=== PATIENT | female | born 1945 | race Caucasian/White ===

== ENCOUNTER 2019-12-30 12:00 | Outpatient (CLI) | payer MEDICARE, OTHER, SELFPAY ==
--- NOTE | ~2019-12-30 | XR_ITS ---
XR lumbar spine 2-3V 12/30/2019 12:29 Indication: Postlaminectomy syndrome. Postop 3 weeks. Procedure: 2 views lumbar spine Comparison: 10/14/2019 Findings: There is levoscoliosis of the lumbar spine. There is disc narrowing and endplate degenerati ve change at L3-4, L4-5 and L5-S1. No acute fracture or traumatic malalignment. There is lower lumbar facet hypertrophy. There are cholecystectomy clips. Partially visualized right hip arthroplasty. The re is stable retrolisthesis at L4-5. Impression: 1: Stable severe lumbar spondylosis with levoscoliosis. Reviewed, dictated and finalized at location A. FILLER Impression: 1: Stable severe lumbar spondylosis with levoscoliosis.
== END 2019-12-30 12:01 | disposition home or self-care (01) ==
PROVIDERS: PCP Family Medicine Adolescent Medicine; Visit Provider Neurological Surgery
DX: M96.1 Postlaminectomy syndrome, not elsewhere classified (principal); M47.816 Spondylosis without myelopathy or radiculopathy, lumbar region
CPT/HCPCS: 72100

== ENCOUNTER 2020-01-23 06:41 | Outpatient (CLI) | payer MEDICARE, OTHER, SELFPAY ==
--- NOTE | ~2020-01-23 | MR_ITS ---
EXAMINATION: MR lumbar spine wo con EXAM DATE: 01/23/2020 07:33 INDICATION: Lumbar radiculopathy. TECHNIQUE: Multi-sequential, multiplanar MR images of the lumbar spine were obtained without contrast . Sagittal T1, T2, T2 fat saturation images. Axial T2 weighted images. Comparison is made to prior examination from 04/25/2019. FINDINGS: Again there is reversal of the normal lumbar lordosis. There is right hip replacement. Lowe r lumbar laminotomies, laminectomies. The conus medullaris terminates at the T12-L1 level and has nor mal signal intensity and morphology. Moderate to severe disc disease L3-4 and L4-5, mild to moderate disc disease at the other lumbar levels. There are no suspicious marrow signal abnormalities. Paraspi nal soft tissue is unremarkable. Mild lumbar levoscoliosis. Level by level evaluation: T12-L1: Disc does not extend beyond the endplate margin. Facet arthropathy: Mild. Neural foraminal stenosis: No stenosis. Central canal stenosis: No stenosis. L1-L2: There is a mild to moderate diffuse disc bulge. Facet arthropathy: Mild. Neural foraminal stenosis: No stenosis. Central canal stenosis: Mild. L2-L3: There is a moderate diffuse disc bulge. Facet arthropathy: Mild. Neural foraminal stenosis: Mild bilateral. Central canal stenosis: Mild. L3-L4: There is a moderate diffuse disc bulge. Facet arthropathy: Mild to moderate. Neural foraminal stenosis: Moderate right, mild to moderate left. Central canal stenosis: Mild. Right hemilaminectomy L4-L5: There is a moderate to large diffuse disc bulge. Facet arthropathy: Mild to moderate. Neural foraminal stenosis: Moderate bilateral. Central canal stenosis: Mild to moderate. Possible laminotomies L5-S1: There is a mild to moderate diffuse disc bulge. Facet arthropathy: Moderate. Neural foraminal stenosis: Moderate to severe bilateral, left greater than right. Central canal stenosis: Mild to moderate. Left hemilaminectomy Difficult appreciate significant interval change compared to prior study. IMPRESSION: 1. L5-S1 left neural foramina most narrowed on exam. 2. Lumbar spondylosis not significantly changed. 3. Levoscoliosis. Reviewed, dictated and finalized at location A.
== END 2020-01-23 06:42 | disposition home or self-care (01) ==
PROVIDERS: PCP Family Medicine Adolescent Medicine; Visit Provider Nurse Practitioner Family
DX: M47.26 Other spondylosis with radiculopathy, lumbar region (principal)
CPT/HCPCS: 72148

== ENCOUNTER 2021-01-09 15:29 | Outpatient (CLI) | payer MEDICARE, OTHER, SELFPAY | END 2021-01-09 15:30 | disposition home or self-care (01) | LOC: ANHCOVIDVC 15:29 | PROVIDERS: PCP Family Medicine Adolescent Medicine | DX: Z23 Encounter for immunization (principal) | CPT/HCPCS: 0001A; 91300 ==

== ENCOUNTER 2021-01-18 11:03 | Emergency (ER) | payer MEDICARE, OTHER, SELFPAY ==
--- NOTE | ~2021-01-18 | XR_ITS ---
EXAMINATION: XR ankle LT min 3V, XR foot LT min 3V EXAM DATE: 01/18/2021 11:42 INDICATION: Swelling and redness to lt ankle and foot. TECHNIQUE: Left foot dorsoplantar, lateral and oblique projections obtained and reviewed. Left ankle frontal, lateral and oblique projections obtained and reviewed. Comparison is made to prior examinat ion from 06/26/2008. FINDINGS: The left ankle mortise appears intact. There is moderate 1st metatarsophalangeal, talona vicular and 1st tarsometatarsal primary osteoarthritis. There are no bony erosions identified. There are no acute fractures or dislocations identified. There is no subcutaneous gas. The soft tissue is unremarkable. There are no radiopaque foreign bodies. IMPRESSION: 1. Left foot, ankle exam without acute osseous findings. 2. Polyarticular osteoarthritis. Reviewed, dictated and finalized at location B. OR OF MEDICINE IMPRESSION: 1. Left foot, ankle exam without acute osseous findings. 2. Polyarticular osteoarthritis.
--- NOTE | 2021-01-18 11:21 | ED.LOWEXIN ---
HPI - Extremity Injury (Lower) General Chief Complaint: Extremity Injury, Lower Stated Complaint: Left Ankle Pain Time Seen by Provider: 01/18/21 11:30 Source: patient Mode of arrival: ambulatory Limitations: no limitations History of Present Illness HPI Narrative: Daya Nova is a 75 yo female with a PMH of HTN, bladder incontinence, high cholesterol, who comes to express care with complaints of pain and swelling of L foot that started on Thursday. Left foot is mildly swollen is tender when walking. No signs of trauma, no twisting of ankle, no open abrasions. Rates pain as 3 out of 10 at rest and 7 out of 10 with walking, using cane because of pain with walking Related Data Home Medications Medication Instructions Recorded Confirmed aspirin 81 mg tablet,delayed 81 mg PO DAILY 10/12/19 release metoprolol succinate 25 mg 25 mg PO DAILY 10/12/19 tablet,extended release 24 hr rosuvastatin 10 mg tablet 5 mg PO DAILY tablet 10/12/19 tizanidine 2 mg capsule 2 mg PO BID PRN cap 10/12/19 vit C 250 mg-vit E 90 mg-zinc 40 1 tablet PO BID 10/12/19 mg-copper 1 [id number] capsule Allergies Allergy/AdvReac Type Severity Reaction Status Date / Time pentazocine Allergy Unknown Verified 01/24/11 08:55 No Known Allergies Allergy Unverified 03/26/19 08:56 Review of Systems Review of Systems: Narrative: CONSTITUTIONAL: Denies fever, chills, sweats. EYES: Denies visual changes, redness, discharge. ENT: Denies rhinorrhea, congestion, sore throat, otalgia. CARDIOVASCULAR: Denies chest pain, palpitations, edema. RESPIRATORY: Denies dyspnea, wheezing, cough GASTROINTESTINAL: Denies abdominal pain, nausea, vomiting, diarrhea. GENITOURINARY: Denies dysuria, hematuria, abnormal discharge SKIN: Denies rash or itching. NEUROLOGIC: Denies numbness, or focal weakness. PSYCHIATRIC: Denies anxiety or depression. Left foot pain, redness, swelling PMFSH Past Medical History Medical History Bladder incontinence High cholesterol HTN (hypertension) Family History Family History Mother Family history of malignant neoplasm of breast in first degree relative, Onset Age: 70 Other Family history of cardiovascular disease Family history of hearing loss Family history of malignant neoplasm of breast Family history of mental disorder Social History Social History Smoking status: Never smoker Alcohol intake: never Comments At time of signature, I agree with nursing past medical, surgical, social and family history. There is no relevant family history pertinent to the presenting complaint. Exam Narrative: Exam Narrative: GENERAL: This is a well-nourished, well-developed patient, in mild distress. HEAD: normocephalic, atraumatic. EYES: Sclera clear/white. Vision is grossly intact. EARS: External ears normal. Hearing grossly intact. NOSE: External nose normal without nasal discharge, nares without redness, no rhinorrhea. THROAT: Mucous membranes moist, NECK: Neck supple, CARDIOVASCULAR: Regular rate and rhythm without murmurs, gallops, or rubs. RESPIRATORY: Clear to auscultation. Breath sounds equal bilaterally. No wheezes, rales, or rhonchi. GASTROINTESTINAL: Abdomen soft, non-tender, SKIN: warm, intact -skin is red on foot with good capillary refill. Swelling more pronounced across top of her foot then and toes. Able to flex ankle with very little pain but wiggling toes is painful on medial foot side with foot rotation. Pain on standing; no tenderness on sore side with palpation in the forefoot, toes, or mid foot NEURO: awake, alert, and oriented to person, place and time. There were no obvious focal neurologic abnormalities. Steady gait EXTREMITIES: Normal range of motion. BACK: Nontender without deformity Course Course Emergency Course:
[2021-01-18 11:23] VITALS: BP 150/76; PULSE 81; RESP 18; TEMP 36.9; O2SAT 98
== END 2021-01-18 12:15 | disposition home or self-care (01) ==
PROVIDERS: Emergency Provider Nurse Practitioner; PCP Family Medicine Adolescent Medicine
DX: M19.072 Primary osteoarthritis, left ankle and foot (principal); E78.00 Pure hypercholesterolemia, unspecified; I10 Essential (primary) hypertension
CPT/HCPCS: 73610; 73630; 99213; G0463

== ENCOUNTER 2021-01-26 11:01 | Emergency (ER) | payer MEDICARE, OTHER, SELFPAY ==
--- NOTE | ~2021-01-26 | XR_ITS ---
EXAMINATION: XR wrist LT min 3V DATE: 01/26/2021 11:41 INDICATION: Pain, warmth and erythema at the left wrist TECHNIQUE: Posteroanterior, ulnar deviation, oblique, and lateral views of the left wrist were obtain ed. COMPARISON: none FINDINGS: Diffuse osteopenia. Bone alignment is normal. Likely old healed fracture at the second metacarpal hu physis. No acute fracture. Chondrocalcinosis at the triangular fibrocartilage complex. Polyarticular osteoarthritis, severe at the first carpometacarpal joint, moderate severity at the second and third metacarpophalangeal joints and mild at the wrist and first interphalangeal joints. There is remodelin g of the articular surfaces at the triscaphe joint suggesting severe osteoarthritis however the joint space is widened which suggests the presence of a joint effusion. Mild soft tissue swelling involvin g the subcutaneous tissues along the radial aspect of the left wrist extending to the base of the shara mb. IMPRESSION: 1. Chondrocalcinosis and moderate to severe polyarticular osteoarthritis. No acute osseous abnormalit y. 2. Widening of the triscaphe joint space despite appearance of remodeling of the articular surfaces w hich suggests a likely joint effusion. Reviewed, dictated and finalized at location A. IMPRESSION: 1. Chondrocalcinosis and moderate to severe polyarticular osteoarthritis. No ac ankit osseous abnormality. 2. Widening of the triscaphe joint space despite appearance of remodeling of th e articular surfaces which suggests a likely joint effusion.
--- NOTE | 2021-01-26 11:14 | ED.UPPEXIN ---
HPI - Extremity Injury (Upper) General Chief Complaint: Extremity Injury, Upper Stated Complaint: Left wrist and hand pain Time Seen by Provider: 01/26/21 11:14 Source: patient and RN notes reviewed Mode of arrival: ambulatory Limitations: no limitations History of Present Illness HPI narrative: 75-year-old female presents to the [facility] with left hand and wrist pain. Pain is at the base of the thumb with increased warmth and swelling. NO open areas or sores noted. Decreased ROM of the wrist. Patient denies any injury to the area. States she woke up today and the pain became more severe along with the redness and swelling. HX of arthitis. Has Been wearing a brace to help with pain and has been taking tramadol. Related Data Home Medications Medication Instructions Recorded Confirmed aspirin 81 mg tablet,delayed 81 mg PO DAILY 10/12/19 01/26/21 release metoprolol succinate 25 mg 25 mg PO DAILY 10/12/19 01/26/21 tablet,extended release 24 hr rosuvastatin 10 mg tablet 5 mg PO DAILY tablet 10/12/19 01/26/21 tizanidine 2 mg capsule 2 mg PO BID PRN cap 10/12/19 01/26/21 vit C 250 mg-vit E 90 mg-zinc 40 1 tablet PO BID 10/12/19 01/26/21 mg-copper 1 [id number] capsule Allergies Allergy/AdvReac Type Severity Reaction Status Date / Time pentazocine Allergy Unknown Unknown Verified 01/26/21 11:24 No Known Allergies Allergy Unverified 03/26/19 08:56 Review of Systems Review of Systems: Narrative: CONSTITUTIONAL: Denies fever, chills, or sweats. CARDIOVASCULAR: Denies chest pain, palpitations, or edema. RESPIRATORY: Denies cough or dyspnea. SKIN: Denies rash or itching. Redness to the base of the thumb left hand MUSCULOSKELETAL: Denies back pain or myalgia. Pain to the left wrist and left thumb base NEUROLOGIC: Denies headache, numbness, or weakness. PSYCHIATRIC: Denies anxiety or depression. All other systems reviewed are negative, except as documented in HPI. ON LICENSE OF [facility] Past Medical History Medical History Bladder incontinence High cholesterol HTN (hypertension) Family History Family History Mother Family history of malignant neoplasm of breast in first degree relative, Onset Age: 70 Other Family history of cardiovascular disease Family history of hearing loss Family history of malignant neoplasm of breast Family history of mental disorder Social History Social History Smoking status: Never smoker Alcohol intake: never Comments At the time of my signature, I reviewed and agree with the nursing past medical, surgical, social, and family history. There is no relevant family history pertinent to the patient complaint. Exam Narrative: Exam Narrative: GENERAL: This is a well-nourished, well-developed patient, in no apparent distress. HEAD: normocephalic, atraumatic. EYES: PERRL. Sclera clear/white. Vision is grossly intact. EARS: External ears normal CARDIOVASCULAR: Regular rate and rhythm without murmurs, gallops, or rubs. RESPIRATORY: Clear to auscultation. Breath sounds equal bilaterally. No wheezes, rales, or rhonchi. SKIN: warm, intact with no suspicious lesions or rash, good texture and turgor. Increased redness and warmth to the base along with swelling NEURO: awake, alert, and oriented to person, place and time. There were no obvious focal neurologic abnormalities. EXTREMITIES: Left thumb and radial aspect left wrist joint tenderness with effusion. BACK: Nontender without deformity Course Course Emergency Course: Discussed x-ray results and treatment plan with patient. Discussed the importance of following up the signs and symptoms to go directly to the emergency room which she verbalized understanding Discharge instructions reviewed with patient, as well as provided in writing per nursing staff. The instructions also include spec
[2021-01-26 11:15] VITALS: BP 121/72; PULSE 90; RESP 16; TEMP 37; O2SAT 98
== END 2021-01-26 12:16 | disposition home or self-care (01) ==
PROVIDERS: Emergency Provider Nurse Practitioner; PCP Family Medicine Adolescent Medicine
DX: M11.232 Other chondrocalcinosis, left wrist (principal); M15.9 Polyosteoarthritis, unspecified; E78.00 Pure hypercholesterolemia, unspecified; I10 Essential (primary) hypertension
CPT/HCPCS: 73110; 99213; G0463

== ENCOUNTER 2021-01-30 15:30 | Outpatient (CLI) | payer MEDICARE, OTHER, SELFPAY | END 2021-01-30 15:31 | disposition home or self-care (01) | LOC: ANHCOVIDVC 15:31 | PROVIDERS: PCP Family Medicine Adolescent Medicine | DX: Z23 Encounter for immunization (principal) | CPT/HCPCS: 0002A; 91300 ==

== ENCOUNTER → 2021-02-07 09:59 | Outpatient (CLI) | payer MEDICARE, OTHER, SELFPAY ==
--- NOTE | ~2021-02-07 | MR_ITS ---
EXAMINATION: MR brain/brain stem wo con EXAM DATE: 02/07/2021 10:37 INDICATION: Worsening generalized headaches for months. TECHNIQUE: Magnetic resonance imaging (MRI) of the brain/brain stem obtained without contrast. Saundraitt al T1, axial diffusion, gradient echo (T2*), T1, T2, FLAIR sequences obtained. Correlation is made t o head CT 03/25/2018. FINDINGS: There are no areas of restricted diffusion to suggest acute infarction. There is no acute hemorrhage seen on the T2*, a hemosiderin sensitive sequence. No intraparenchymal brain mass lesion. There is mild to moderate periventricular and subcortical T2/FLAIR signal hyperintensity, nonspecif ic but probably related to small vessel ischemic disease (microangiopathy). There are no extra-axia l collections. Flow voids are seen in the cerebral arteries on the T2-weighted sequences consistent with their expected patency. Patient has had bilateral ocular lens surgery. Soft tissue is unremark able. IMPRESSION: 1. No acute intracranial findings. 2. Vomo-io-ghjaqiau white matter hyperintensity probably microangiopathy. Reviewed, dictated and finalized at location A. IMPRESSION: 1. No acute intracranial findings. 2. [id number] white matter hyperintensity probably microangiopathy.
== END ==
PROVIDERS: PCP Family Medicine Adolescent Medicine; Visit Provider Family Medicine Adolescent Medicine
DX: R51.9 Headache, unspecified (principal)
CPT/HCPCS: 70551

== ENCOUNTER → 2021-04-05 06:58 | Outpatient (CLI) | payer MEDICARE, OTHER, SELFPAY ==
--- NOTE | ~2021-04-05 | XR_ITS ---
EXAMINATION: XR chest 2V DATE: 04/05/2021 07:25 INDICATION: Dyspnea on exertion TECHNIQUE: PA and lateral views of the chest are obtained. COMPARISON: 08/01/2016 FINDINGS: The lungs are free of acute opacities. There is no pleural effusion or pneumothorax. The ca rdiomediastinal silhouette is normal. There is mild thoracic spondylosis. IMPRESSION: 1. No acute cardiopulmonary abnormality. Reviewed, dictated and finalized at location B.
== END ==
PROVIDERS: Visit Provider Family Medicine Adolescent Medicine
DX: R06.00 Dyspnea, unspecified (principal)
CPT/HCPCS: 71046

== ENCOUNTER → 2021-05-17 14:47 | Outpatient (CLI) | payer MEDICARE, OTHER, SELFPAY ==
--- NOTE | ~2021-05-17 | MR_ITS ---
EXAMINATION: MR lumbar spine wo con DATE: 05/17/2021 15:32 INDICATION: Low back pain. Lumbar radiculopathy. TECHNIQUE: Magnetic resonance imaging (MRI) of the lumbar spine was performed without intravenous con trast. Sequences included sagittal T2-weighted FSE, sagittal T2-weighted FS FSE, sagittal T1-weighted FSE, and axial T2-weighted FSE. COMPARISON: Lumbar spine MRI 01/23/2020 FINDINGS: There is 17 degrees levoscoliosis of lumbar spine. There is kyphosis of the lumbar spine. T here is 5 mm retrolisthesis of L4 on L5. Vertebral body heights are normal. There is mildly decreased disc height at L1-L2 and L2-L3 and severely decreased disc height at L3-L4, L4-L5, and L5-S1. The di stal spinal cord signal intensity is normal. The conus medullaris is at L1. The following disc levels are specifically discussed: L1-L2: The disc is bulging with superimposed central extrusion. There is moderate right and severe le ft facet joint osteoarthritis. There is mild left neural foraminal stenosis. There is mild central ca nal stenosis. L2-L3: The disc is bulging and has an annular fissure. There is mild bilateral facet joint osteoarthr itis. There is mild bilateral neural foraminal stenosis. There is mild central canal stenosis. L3-L4: The disc is bulging. There is severe bilateral facet joint osteoarthritis. There is moderate r ight and mild left neural foraminal stenosis. There is mild central canal stenosis. L4-L5: The disc is bulging and has an annular fissure. There is mild bilateral facet joint osteoarthr itis. There is moderate bilateral neural foraminal stenosis. There is mild central canal stenosis. L5-S1: The disc is bulging and has an annular fissure. There is severe bilateral facet joint osteoart hritis. There is moderate bilateral neural foraminal stenosis. There is mild central canal stenosis. IMPRESSION: 1. Severe lumbar spondylosis, stable from 01/23/2020. 2. Lumbar kyphosis and levoscoliosis. Reviewed, dictated and finalized at location A.
--- NOTE | ~2021-05-17 | XR_ITS ---
EXAMINATION: XR hip LT min 2V EXAM DATE: 05/17/2021 15:49 INDICATION: Pain in left hip. Left lateral and anterior hip/groin pain. TECHNIQUE: Left hip frontal, 'frog leg' projections for interpretation. There is no prior study for comparison. FINDINGS: Smooth left hip femoral head contour, no radiographic evidence of avascular necrosis. Ther e is moderate left hip primary osteoarthritis. There are no acute fractures or dislocations identifie d. There is no subcutaneous gas. The soft tissue is unremarkable. There are no radiopaque foreign bodies. IMPRESSION: Moderate left hip osteoarthritis. Reviewed, dictated and finalized at location B.
== END ==
PROVIDERS: Visit Provider Nurse Practitioner Family
DX: M47.817 Spondylosis without myelopathy or radiculopathy, lumbosacral region (principal); M41.9 Scoliosis, unspecified; M16.12 Unilateral primary osteoarthritis, left hip
CPT/HCPCS: 72148; 73502

== ENCOUNTER 2021-09-03 10:39 | Outpatient (CLI) | payer MEDICARE, OTHER, SELFPAY ==
--- NOTE | ~2021-09-03 | XR_ITS ---
EXAMINATION: XR knee LT 2V DATE: 09/03/2021 11:46 INDICATION: Left knee pain. TECHNIQUE: 2 views of left knee were obtained. COMPARISON: None. FINDINGS: Bone alignment is normal. No fracture. There is mild tricompartmental osteoarthritis. There is chondrocalcinosis of the menisci. There are dystrophic calcifications of the joint capsule. No kn ee joint effusion. IMPRESSION: 1. Mild left knee osteoarthritis. Reviewed, dictated and finalized at location A.
[2021-09-03 11:55] LABS: Creatine Kinase 59 U/L (30-135); Magnesium 1.8 mg/dL (1.6-2.3); Uric Acid 4.1 mg/dL (2.5-7.5)
[2021-09-03 11:58] LABS: Hemoglobin A1C 5.3 % (<5.7)
[2021-09-03 12:12] LABS: Free T4 Free Thyroxine 1.37 ng/mL (0.78-2.19); Vitamin D 25 Hydroxy 66.4 ng/mL
[2021-09-03 13:06] LABS: Folic Acid > 20.0 ng/mL (2.76->20); Vitamin B12 > 1000.0 pg/mL (239-931)
[2021-09-07 09:53] LABS: Vitamin B1 27 nmol/L (8-30)
== END 2021-09-03 10:40 | disposition home or self-care (01) ==
PROVIDERS: PCP Family Medicine Adolescent Medicine; Visit Provider Internal Medicine Rheumatology
DX: Z13.1 Encounter for screening for diabetes mellitus (principal); R73.09 Other abnormal glucose; E55.9 Vitamin D deficiency, unspecified; E53.8 Deficiency of other specified B group vitamins; Z51.81 Encounter for therapeutic drug level monitoring; M17.12 Unilateral primary osteoarthritis, left knee; R53.83 Other fatigue
CPT/HCPCS: 36415; 73560; 82306; 82550; 82570; 82607; 82746; 83036; 83520; 83735; 84155; 84156; 84165; 84166; 84207; 84425; 84439; 84443; 84550; 86334; 86335

== ENCOUNTER → 2021-10-22 09:23 | Outpatient (CLI) | payer MEDICARE, OTHER, SELFPAY ==
--- NOTE | ~2021-10-22 | MR_ITS ---
EXAMINATION: MR lumbar spine wo con DATE: 10/22/2021 10:14 INDICATION: Persistent left-sided sciatica. TECHNIQUE: Magnetic resonance imaging (MRI) of the lumbar spine was performed without intravenous con trast. Sequences included sagittal T2-weighted FSE, sagittal T2-weighted FS FSE, sagittal T1-weighted FSE, and axial T2-weighted FSE. COMPARISON: Lumbar spine MRI 05/17/2021 FINDINGS: There is 14 degrees levoscoliosis of lumbar spine. There is kyphosis of lumbar spine. There is 4 mm retrolisthesis of L4 on L5. There is mild chronic anterior wedging of L1 vertebral body. The re is mildly decreased disc height at L1-L2 and L2-L3 and severely decreased disc height from L3-L4 t hrough L5-S1 with endplate remodeling. The distal spinal cord signal intensity is normal. The conus m edullaris is at T12-L1. The following disc levels are specifically discussed: L1-L2: There is a central extrusion. There is moderate right and severe left facet joint osteoarthrit is. There is no neural foraminal stenosis. There is mild central canal stenosis. L2-L3: The disc is bulging and has an annular fissure. There is mild bilateral facet joint osteoarthr itis. There is mild bilateral neural foraminal stenosis. There is mild central canal stenosis. L3-L4: The disc is bulging and has an annular fissure. There is severe bilateral facet joint osteoart hritis. There is moderate right and mild left neural foraminal stenosis. There is mild central canal stenosis. L4-L5: The disc is bulging and has an annular fissure. There is mild left facet joint osteoarthritis. There is moderate bilateral neural foraminal stenosis. There is mild central canal stenosis. There i s moderate stenosis of left lateral recess. L5-S1: The disc is bulging and has an annular fissure. There is severe bilateral facet joint osteoart hritis. There is moderate bilateral neural foraminal stenosis. There is mild central canal stenosis. IMPRESSION: 1. Severe lumbar spondylosis, stable from 05/17/2021. 2. Lumbar levoscoliosis. Reviewed, dictated and finalized at location A. AINER FINISHING INSPECTOR
== END ==
PROVIDERS: PCP Family Medicine Adolescent Medicine; Visit Provider Family Medicine Adolescent Medicine
DX: M47.817 Spondylosis without myelopathy or radiculopathy, lumbosacral region (principal); M48.07 Spinal stenosis, lumbosacral region; M41.9 Scoliosis, unspecified
CPT/HCPCS: 72148

== ENCOUNTER → 2022-01-07 10:34 | Outpatient (CLI) | payer MEDICARE, OTHER, SELFPAY ==
--- NOTE | ~2022-01-07 | XR_ITS ---
XR scoliosis survey DATE: 01/07/2022 11:30 INDICATION: Low back pain. Scoliosis. TECHNIQUE: Standing AP and lateral views COMPARISON: None FINDINGS: There is diffuse osteopenia. There is reversal of cervical curvature. Minimal anterolisthesis at C2-3 and C3-4. Severe degenerative disc disease and mild retrolisthesis at C4-5. Moderately severe degenerative disc disease at C5-6 and C6-7. 7 degrees levoscoliosis of the upper thoracic spine 16 degrees dextroscoliosis measured from T4 to L1. 22 degrees levoscoliosis measured from L2 to L4. There is severe degenerative disc disease at L3-4, L4-5 and particularly, moderately severe degenerat jaycee disease at L5-S1. There is mild retrolisthesis at L4-5. IMPRESSION: Osteopenia Thoracic and lumbar scoliosis Degenerative changes of the cervical and lumbar spine Reviewed, dictated and finalized at Location A. Reviewed, dictated and finalized at location A. LANE CABIN ATTENDANT
--- NOTE | ~2022-01-07 | XR_ITS ---
XR lumbar spine 2-3V DATE: 01/07/2022 11:30 INDICATION: Low back pain TECHNIQUE: Flexion and extension upright lateral views COMPARISON: December 30, 2019 lumbar spine FINDINGS: There is prominent diffuse osteopenia. There is moderate degenerative disc disease at L1-2 and L5-S1 There is severe degenerative disc disease at L2-3, L3-4, L4-5. There is associated mild retrolisthesi s at L4-5, stable since December 30, 2019. No fracture or bone destruction. No instability on flexion or extension. Surgical clips, right upper quadrant, likely due to cholecystectomy. IMPRESSION: Prominent diffuse osteopenia Multilevel degenerative disc disease, most severe at L2-3, L3-4, L4-5, associated mild chronic retrol isthesis at L4-5 Reviewed, dictated and finalized at location A. UP OPERATOR IMPRESSION: Prominent diffuse osteopenia Multilevel degenerative disc disease, most severe at L2-3, L3-4, L4-5, associat ed mild chronic retrolisthesis at L4-5
== END ==
PROVIDERS: PCP Family Medicine Adolescent Medicine
DX: M47.813 Spondylosis without myelopathy or radiculopathy, cervicothoracic region (principal); M47.817 Spondylosis without myelopathy or radiculopathy, lumbosacral region; M41.9 Scoliosis, unspecified
CPT/HCPCS: 72082; 72100

== ENCOUNTER 2022-11-19 10:23 | Outpatient (CLI) | payer MEDICARE, OTHER, SELFPAY ==
--- NOTE | ~2022-11-19 | MR_ITS ---
EXAMINATION: MR brain/brain stem wo con DATE: 11/19/2022 11:04 INDICATION: Headache. TECHNIQUE: Magnetic resonance imaging (MRI) of the brain and brainstem was performed without intraven ous contrast. COMPARISON: Brain MRI 02/07/2021 FINDINGS: There are scattered areas of nonspecific increased T2-weighted signal intensity in the cere bral white matter. There is no intracranial hemorrhage, acute infarction, or abnormal intracranial ma ss lesion. The ventricles are normal in size. There are likely changes of ocular lens replacement john geries. The paranasal sinuses are clear. The mastoid air cells are normal. IMPRESSION: 1. Stable moderate nonspecific cerebral white matter disease, which likely represents chronic small v essel ischemic disease. Reviewed, dictated and finalized at location A. RIDE OPERATOR IMPRESSION: 1. Stable moderate nonspecific cerebral white matter disease, which likely repr esents chronic small vessel ischemic disease.
== END 2022-11-19 10:24 | disposition home or self-care (01) ==
LOC: ANHIMG 10:29
PROVIDERS: PCP Family Medicine Adolescent Medicine; Visit Provider Internal Medicine Rheumatology
DX: R51.9 Headache, unspecified (principal)
CPT/HCPCS: 70551

== ENCOUNTER 2022-11-25 13:23 | Outpatient (CLI) | payer MEDICARE, OTHER, SELFPAY ==
--- NOTE | ~2022-11-25 | CT_ITS ---
EXAMINATION: CT lumbar spine wo con DATE: 11/25/2022 13:45 INDICATION: Intervertebral disc disorder. TECHNIQUE: Computed tomography (CT) of the lumbar spine was performed without intravenous contrast. A utomated exposure control and iterative reconstruction technique were employed. The dose-length produ ct was 649.38 mGy-cm. COMPARISON: None FINDINGS: There is 16 degrees levoscoliosis of lumbar spine. There is mild kyphosis of lumbar spine. There is 3 mm retrolisthesis of L4 on L5. There is mild chronic anterior wedging of L1 vertebral body . There is mildly decreased disc height at L1-L2 and L2-L3 and severely decreased disc height from L3 -L4 through L5-S1 with endplate remodeling. L1-L2: The disc is bulging. There is severe bilateral facet joint osteoarthritis. There is mild bilat eral neural foraminal stenosis. There is mild central canal stenosis. L2-L3: The disc is bulging. There is severe bilateral facet joint osteoarthritis. There is mild bilat eral neural foraminal stenosis. There is mild central canal stenosis. L3-L4: The disc is bulging. There is severe bilateral facet joint osteoarthritis. There is moderate r ight and mild left neural foraminal stenosis. There is mild central canal stenosis. L4-L5: The disc is bulging. There is moderate bilateral facet joint osteoarthritis. There is moderate bilateral neural foraminal stenosis. There is mild central canal stenosis. L5-S1: The disc is bulging. There is severe bilateral facet joint osteoarthritis. There is mild right and moderate left neural foraminal stenosis. There is mild central canal stenosis. IMPRESSION: 1. Severe lumbar spondylosis. 2. Lumbar levoscoliosis. Reviewed, dictated and finalized at location A. R VEHICLE OR CARAVAN SALESPERSON
== END 2022-11-25 13:24 | disposition home or self-care (01) ==
PROVIDERS: PCP Family Medicine Adolescent Medicine
DX: M51.17 Intervertebral disc disorders with radiculopathy, lumbosacral region (principal); M48.061 Spinal stenosis, lumbar region without neurogenic claudication; M54.50 Low back pain, unspecified; Z98.890 Other specified postprocedural states; M47.816 Spondylosis without myelopathy or radiculopathy, lumbar region; M41.9 Scoliosis, unspecified
CPT/HCPCS: 72131

== ENCOUNTER 2022-12-10 13:59 | Outpatient (CLI) | payer MEDICARE, OTHER, SELFPAY ==
[2022-12-10 15:51] LABS: Vitamin D 25 Hydroxy 46.2 ng/mL
== END 2022-12-10 14:00 | disposition home or self-care (01) ==
PROVIDERS: PCP Family Medicine Adolescent Medicine
DX: M48.061 Spinal stenosis, lumbar region without neurogenic claudication (principal); M85.88 Other specified disorders of bone density and structure, other site; Z98.890 Other specified postprocedural states
CPT/HCPCS: 36415; 82306

== ENCOUNTER → 2022-12-22 14:45 | Outpatient (CLI) | payer MEDICARE, OTHER, SELFPAY ==
--- NOTE | ~2022-12-22 | DEXA_ITS ---
Bone Density Report Name: CROW REED Age: 77 Sex: Female Ethnicity: White Date of : 1945 Indication: postmenopausal; screening for osteoporosis; height loss; hysterectomy; Referring Provider: COURTNEY JARAMILLO Study: Bone densitometry was performed. Exam Date: December 22, 2022 Accession number: [id number] Bone Density: Region BMD T-score Z-score Classification AP Spine (L1-L4) 1.080 0.3 2.9 Normal Femoral Neck (Left) 0.832 -0.1 2.1 Normal Total Hip (Left) 0.813 -1.1 1.0 Osteopenia World Health Organization criteria for BMD impression classify patients as: Normal (T-score at or above -1.0), Osteopenia (T-score between -1.0 and -2.5), or Osteoporosis (T-score at or below -2.5). 10-year Fracture Risk(1): Major Osteoporotic Fracture 9.1% Hip Fracture 1.2% Reported Risk Factors: [place] (), Neck BMD=0.832, BMI=27.2 (1) FRAX(R) Version 3.08. Fracture probability calculated for an untreated patient. Fracture probability may be lower if the patient has received treatment. Clinical Information Provided by Patient: Has used the following medications: Vitamin D, Calcium Has the following medical conditions: Hysterectomy Patient maximum height was 65.5 Menopause Age: 47 Drinks caffeinated beverages Onset of menses at age 11 Number of children 4 Impression: The patient has low bone mass, based on the Left Total Hip T-score. The patient has an estimated ten-year risk of hip fracture of 1.2% and an estimated ten-year risk of major fracture of 9.1%, based on the WHO FRAX algorithm. Discussion: BONE DENSITY IS LOW AT ONE OR MORE SKELETAL SITES. This patient's lowest T-score is low at one or more skeletal sites. It meets the World Health Organization's (WHO) criteria for ?low bone mass? (T-score between -1.0 and -2.5). The patient's 10-year risk of fracture as calculated by FRAX is less than the threshold where pharmacological therapy is recommended by the National Osteoporosis Foundation (NOF). However, all treatment decisions require clinical judgment and consideration of individual patient factors, including patient preferences, comorbidities, previous drug use, risk factors not captured in the FRAX model (e.g., frailty, falls, vitamin D deficiency, increased bone turnover, interval significant decline in bone density) and possible under or overestimation of fracture risk by FRAX. The patient should follow a healthful lifestyle (good nutrition with adequate calcium and vitamin D, and appropriate weight-bearing exercise). Follow-Up: Consider repeating this study in 2 to 3 years to reassess this patient's status, or sooner if there is some new clinical indication. Reported by: SHINE on 12/22/2022 3:03:00 PM. Reviewed, dictated and finalized at location A. BORA
== END ==
PROVIDERS: PCP Family Medicine Adolescent Medicine
DX: M48.061 Spinal stenosis, lumbar region without neurogenic claudication (principal); M85.88 Other specified disorders of bone density and structure, other site; Z98.890 Other specified postprocedural states
CPT/HCPCS: 77080

== ENCOUNTER 2023-04-23 10:40 | Outpatient (CLI) | payer MEDICARE, OTHER, SELFPAY ==
--- NOTE | ~2023-04-23 | XR_ITS ---
EXAMINATION: XR chest 2V 04/23/2023 11:01 INDICATION: Cough and dyspnea PROCEDURE: 2 view chest COMPARISON: 04/05/2021 FINDINGS: The lungs are clear. The cardiomediastinal silhouette is within normal limits. There are no pleural effusions. There is no pneumothorax suspected. IMPRESSION: 1: NO ACUTE CARDIOPULMONARY DISEASE. Reviewed, dictated and finalized at location L.
== END 2023-04-23 10:41 | disposition home or self-care (01) ==
LOC: ANHIMG 10:47
PROVIDERS: PCP Family Medicine Adolescent Medicine; Visit Provider Family Medicine Adolescent Medicine
DX: R06.09 Other forms of dyspnea (principal); R05.9 Cough, unspecified; R53.83 Other fatigue
CPT/HCPCS: 71046

== ENCOUNTER 2023-06-05 14:35 | Outpatient (CLI) | payer MEDICARE, OTHER, SELFPAY ==
--- NOTE | 2023-06-05 14:39 | ECHO_ITS ---
Patient Info Name: Daya Nova Age: 77 years : 1945 Gender: Female Ht: 65 in Wt: 158 lbs BSA: 1.83 m2 HR: 97 bpm BP: 119 / 80 mmHg Heart Rhythm: Sinus Rhythm Technical Quality: Fair Exam Date: 06/05/2023 2:50 PM Exam Location: [facility] Patient Status: Outpatient Admit Date: 06/05/2023 Staff Ordering Physician: Alejandro Yap MD Lard Refiner: Beatriz Sheehan RDCS Attending Provider: Alejandro Yap MD Referring Physician: Marely YAP; Exam Type: CA echo doppler color flow Study Info Indications R06.09 - Other forms of dyspnea R01.1 - Cardiac murmur, unspecified Complete two-dimensional, color flow and Doppler transthoracic echocardiogram is performed. Summary 1. Complete two-dimensional, color flow and Doppler transthoracic echocardiogram is performed. 2. Left ventricular chamber dimension is normal. 3. Left ventricular systolic function is hyperdynamic, estimated at >70%. 4. The left ventricular diastolic function is grade I diastolic dysfunction. 5. E/e' 8 is minimally elevated. 6. There is mild aortic valve sclerosis. 7. There is trace aortic valve regurgitation. 8. No pulmonary hypertension, estimated pulmonary arterial systolic pressure is 25 mmHg. Left Ventricle E/e' 8 is minimally elevated. Left ventricular chamber dimension is normal. Left ventricular systolic function is hyperdynamic, estimated at >70%. The left ventricular diastolic function is grade I diastolic dysfunction. Right Ventricle Right ventricular systolic function is normal and with normal TAPSE 2.2 cm. Right ventricular chamber dimension is normal. Left Atria Left atrial chamber dimension is normal. Right Atria Right atrial chamber dimension is normal. Aortic Valve The aortic valve is trileaflet. There is mild aortic valve sclerosis. There is no aortic valve stenosis. There is trace aortic valve regurgitation. Pulmonic Valve There is no pulmonic regurgitation. Mitral Valve There is no mitral valve stenosis. There is no mitral valve regurgitation. Tricuspid Valve There is no tricuspid valve regurgitation. No pulmonary hypertension, estimated pulmonary arterial systolic pressure is 25 mmHg. Pericardium/Pleural There is no pericardial effusion. Inferior Vena Cava Normal inferior vena cava with >50% collapse upon inspiration consistent with normal right atrial pressure, 5 mmHg. Aorta The aortic root size at the sinus of Valsalva is normal. Left Ventricular Outflow Tract Name Value Normal LVOT 2D LVOT Diameter 2.0 cm LVOT Doppler LVOT Peak Gradient 12 mmHg LVOT Mean Gradient 7 mmHg LVOT VTI 32 cm LVOT VTI/AV VTI Ratio 0.8 LVOT Stroke Volume 105 ml LVOT CO 10.4 l/min LVOT CI 5.7 l/min/m2 Pulmonic Valve Name Value Normal RVOT Doppler
== END 2023-06-05 14:36 | disposition home or self-care (01) ==
LOC: ANHCARD 14:37
PROVIDERS: PCP Family Medicine Adolescent Medicine; Visit Provider Family Medicine Adolescent Medicine
DX: R06.00 Dyspnea, unspecified (principal); R01.1 Cardiac murmur, unspecified; I35.8 Other nonrheumatic aortic valve disorders
CPT/HCPCS: 93306

== ENCOUNTER 2023-08-18 11:58 | Outpatient (CLI) | payer MEDICARE, OTHER, SELFPAY ==
--- NOTE | 2023-08-18 12:48 | ECG_ITS ---
Measurements Intervals [place] Rate: 68 P: 62 NM: 199 QRS: -36 QRSD: 89 T: 45 QT: 397 QTc: 425 Interpretive Statements SINUS RHYTHM POSSIBLE LEFT ATRIAL ENLARGEMENT [-0.1mV P WAVE IN V1/V2] MARKED LEFT AXIS DEVIATION [QRS AXIS < -30] POSSIBLE LEFT VENTRICULAR HYPERTROPHY [VOLTAGE CRITERIA PLUS LAE OR QRS WIDENING] NO PREVIOUS ECG AVAILABLE FOR COMPARISON Electronically Signed On 08-18-2023 16:33:29 CDT by Jaye Garber M.D.
[2023-08-18 13:02] LABS: Basophils Percent Auto 0.4 % (0.2-1.2); Eosinophils Absolute Auto 0.1 K/mm3 (0-0.3); Eosinophils Percent Auto 1.3 % (0-4.4); Hemoglobin 13.7 g/dL (12.0-15.0); Immature Granulocyte Absolute 0.02 K/mm3 (0.00-0.031); Immature Granulocyte Percent A 0.3 % (0-0.5); Lymphocytes Absolute Auto 1.59 K/mm3 (0.9-3.2); Lymphocytes Percent Auto 20.6 % (18.3-44.2); Mean Corpuscular HGB Conc 33.4 g/dl (32-36); Mean Corpuscular Hemoglobin 29.6 pg (26-34); Mean Corpuscular Volume 88.6 fl (80-100); Mean Platelet Volume 8.9 fl (7.4-10.4); Monocytes Absolute Auto 0.7 K/mm3 (0.1-0.6); Monocytes Percent Auto 9.2 % (2.6-8.5); Neutrophils Absolute Auto 5.3 K/mm3 (1.3-6.7); Neutrophils Percent Auto 68.2 % (45.5-73.1); Platelet Count Result 322 k/mm3 (150-375); Red Blood Count 4.63 M/mm3 (4.2-5.4); Red Cell Distribution Width 12.4 % (11.5-14.5); White Blood Count 7.7 K/mm3 (4.5-10.0)
[2023-08-18 13:12] LABS: Albumin Level 4.5 g/dL (3.5-5.1); Anion Gap 7 mmol/L (8-16); Blood Urea Nitrogen 14 mg/dL (7-17); Calcium 9.9 mg/dL (8.4-10.2); Carbon Dioxide 29 mmol/L (22-30); Chloride 98 mmol/L (98-107); Estimated Glomerular Filt Rate > 60; Glucose 93 mg/dL (65-110); Potassium 4.1 mmol/L (3.4-5.0); Sodium 134 mmol/L (137-145)
[2023-08-18 13:13] LABS: Urine Cotinine NEGATIVE
[2023-08-18 13:17] LABS: Hemoglobin A1C 5.2 % (<5.7)
== END 2023-08-18 11:59 | disposition home or self-care (01) ==
LOC: ANHSURGERY 12:04
PROVIDERS: PCP Family Medicine Adolescent Medicine; Visit Provider Orthopaedic Surgery
DX: M16.12 Unilateral primary osteoarthritis, left hip (principal); Z01.818 Encounter for other preprocedural examination
CPT/HCPCS: 80048; 80307; 82040; 83036; 85025; 87081; 93005

== ENCOUNTER 2023-09-07 01:20 | Day surgery (SDC) | payer MEDICARE, OTHER, SELFPAY ==
--- NOTE | 2023-08-18 11:44 | PC.NURSE ---
PRE-OP INSTRUCTIONS, PLEASE READ CAREFULLY & PLEASE BRING COPY OF POA DAY OF SURGERY Report to the Outpatient Waiting Room, entrance under the green pavilion located off [facility], at time _0600_ on date _09/07/23_. Planned Procedure Time: _0730_. PACK A SMALL OVERNIGHT BAG AND LEAVE IN THE CAR ALONG WITH YOUR WALKER Time changes happen often and if your time is changed the preop area will call you the afternoon before. - You and your visitor will be asked to self-screen and do not enter if you have any COVID symptoms. - A mask is optional within the hospital at this time. -VISITING HOURS 8AM-8PM Patients may have clear liquids (water, carbonated beverages, clear teas, apple juice) until 3 hours prior to surgery (0430 AM) with a maximum of 20 ounces. - No food from midnight until time of surgery Take the following medications with a SIP of water the morning of surgery: _TYLENOL IF NEEDED_ DO NOT STOP ANY OF YOUR OTHER PRESCRIPTION MEDICATIONS PRIOR TO SURGERY ?EXCEPT THE FOLLOWING Medications to discontinue DR. BARRIENTOS - IBUPROFEN, (ASPIRIN PER DR. DURÁN) 7 DAYS PRIOR TO SURGERY, Date to take last dose 08/30/23_ Medications to discontinue ANESTHESIA - _MULTIVITAMIN, PRESERVISION 3 DAYS PRIOR TO SURGERY, Date to take last dose 09/03/23_ Please no make-up, nail canadian, hairspray, perfume, deodorant, or body powder the day of surgery. No jewelry (including any body piercings) or valuables the day of surgery, leave them at home. Please take a shower or bath the night before, or the morning of, surgery with an antibacterial soap. Wear comfortable, loose fitting clothing. - Jewelry must be removed prior to entering the operating room. Rings and piercings that are not removed may be cut off. - The hospital will not accept responsibility for valuables. - Please leave all valuables, including medications, at home the day of surgery. If you are going home after surgery, a licensed reefer truck driver must drive you home. - NO public transportation without another adult if you receive anesthesia. - We recommend that an adult stay with you for 24 hours following discharge. - We also recommend that you do not drive, make important decision, drink alcoholic beverages, or take any drugs that were not prescribed by your health care provider for at least 24 hours after your discharge time. Follow any additional instructions given to you from your surgeon. If you or anyone in your household have experienced Covid symptoms in the past week, please notify your surgeon or the nurse liaison at the phone number below for possible testing. Instructions given to _PATIENT_and asked if any additional questions and then verbalized understanding. Patient advised to call surgeon office or pre surgery nurse liaison [phone] if any additional questions.
[2023-08-18 12:26] VITALS: BP 150/76; PULSE 72; RESP 18; TEMP 36.9; O2SAT 99; BMI 26.3
--- NOTE | 2023-09-04 07:36 | PM.IMHP ---
H&P: HPI History of Present Illness Date/Time: 09/04/23 07:36 Chief Complaint: DJD left hip Narrative: 78-year-old female patient of Dr. Howell who presents today for left anterior total hip arthroplasty. Patient has moderately severe osteoarthritis left hip. She has been having continued symptoms in the hip. Patient is having symptoms in the hip mostly in the groin area on a daily basis with most activities. She has been on meloxicam 50 mg daily without improvement of her symptoms. She has tried physical therapy. Patient has had her right hip replaced in the past and feels at this point she is ready to proceed with left total hip arthroplasty. Review of Systems Review of Systems: All systems reviewed & are unremarkable except as noted in HPI and below PMFSH Past Medical History Medical History (Updated 09/04/23 @ 07:41 by SAHRA Dominguez) Bladder incontinence High cholesterol HTN (hypertension) Surgical History Surgical History (Updated 06/17/22 @ 11:25 by Lori Pritchett MA) History of cataract surgery bilateral History of hysterectomy with oophorectomy History of laparoscopic cholecystectomy History of lumbar surgery decompression / microdiscectomy/ decompression-microdiscectomy X3 surgeries History of total right hip arthroplasty 2015 Family History Family History Mother Family history of malignant neoplasm of breast in first degree relative, Onset Age: 70 Other Family history of cardiovascular disease Family history of hearing loss Family history of malignant neoplasm of breast Family history of mental disorder Social History Social History (Updated 04/21/23 @ 08:00 by Lori Pritchett MA) Smoking status: Never smoker Second hand tobacco smoke exposure: No Alcohol intake: never Substance use: never Substance use type: does not use Lack of Transportation: No Lack of Food: Never True Current Housing: I Have Housing Concerned About Future Housing: No Difficulty Paying Gas/Electric Bills: No Difficulty Paying for Meds: YES Currently Unemployed: No Education: Associate Degree Difficulty w/ Childcare or Family Care: No Living arrangements: with family Occupation/Education: retired Gender identity (if verbalized by the patient): Female Sexual Orientation (if Verbalized by the Patient): Straight or Heterosexual Spiritual care concerns: No Agree to blood products: Yes Meds Home Medications and Allergies Home Medications Medication Instructions Recorded Confirmed Type multivitamin (Daily Multi-Vitamin 1 tablet PO DAILY 01/21/22 08/18/23 History tablet) aspirin 81 mg capsule 81 mg PO DAILY 06/17/22 08/18/23 History calcium carbonate 600 mg-vitamin 1 tablet PO DAILY 06/17/22 08/18/23 History D3 20 mcg (800 unit) tablet ibuprofen 200 mg tablet 200 mg PO Q6H PRN Pain 06/17/22 08/18/23 History vit C 250 mg-vit E 90 mg-zinc 40 1 tablet PO BID 06/17/22 08/18/23 History mg-copper 1 as-deakam-catqut capsule (PreserVision AREDS-2) mirabegron 50 mg tablet,extended 50 mg PO DAILY #90 tabs 11/19/22 08/18/23 Rx release 24 hr (Myrbetriq) valsartan 80 1 tablet PO DAILY #90 tabs 03/10/23 08/18/23 Rx mg-hydrochlorothiazide 12.5 mg tablet rosuvastatin 10 mg tablet 5 mg PO DAILY #45 tabs 07/23/23 08/18/23 Rx acetaminophen 325 mg tablet 650 mg PO TID PRN Pain 08/18/23 08/18/23 History (Tylenol) metoprolol succinate 25 mg 25 mg PO DAILY #90 tabs 09/03/23 Rx tablet,extended release 24 hr Allergies Allergy/AdvReac Type Severity Reaction Status Date / Time pentazocine Allergy Unknown Unknown - Verified 08/18/23 12:19 UNABLE TO RECALL Exam Narrative: 78-year-old female alert pleasant she is 5 ft 3 and 159 lb BMI is 28.2 . She walks with a cane. Her left hip flexes to 120 which causes anterior groin pain, internal rotation 10? external rotation
[2023-09-07] VITALS (18 sets, daily range): BP systolic 88–165; BP diastolic 44–97; PULSE 76–104; RESP 12–25; TEMP 36.1–37.1; O2SAT 95–100
--- NOTE | ~2023-09-07 | XR_ITS ---
EXAMINATION: XR surgery orthopedic DATE: 09/07/2023 10:50 INDICATION: Anterior approach left total hip arthroplasty TECHNIQUE: Single frontal fluoroscopic image of the left hip was obtained during procedure performed by Dr. Osman. Radiologist was not present for the imaging or procedure. The amount of fluoroscopy t mike used during this procedure was 0.8 minutes. COMPARISON: None FINDINGS: Left total hip arthroplasty which appears well seated in near-anatomic alignment. The acetabular comp onent is affixed with at least a single screw. No fractures identified. Expected lucency seen at the soft tissues at the operative bed IMPRESSION: 1. Fluoroscopy utilized during left total hip arthroplasty. Reviewed, dictated and finalized at location A.
--- NOTE | ~2023-09-07 | XR_ITS ---
EXAMINATION: XR hip LT 1V w AP pelvis DATE: 09/07/2023 11:25 INDICATION: Anterior partial left hip arthroplasty. Postop. TECHNIQUE: An anteroposterior view of the pelvis and single view of left hip were obtained. COMPARISON: Left hip radiographs 05/17/2021 FINDINGS: There are bilateral total hip arthroplasties in near-anatomic alignment. No fracture. There is a surgical drain in the soft tissues near the left hip. There is soft tissue gas from recent surg mitzi. IMPRESSION: 1. Bilateral total hip arthroplasties in near-anatomic alignment. Reviewed, dictated and finalized at location E.
[2023-09-07] MEDS: ACETAMINOPHEN 500 MG TABLET 1000 MG PO ×3 (06:27→17:05)
[2023-09-07] MEDS: LACTATED RINGERS 1,000 ML 30 ML IV CONT ×3 (06:40→12:03)
[2023-09-07] MEDS: VANCOMYCIN 1,000 MG/NS 250 ML BAG 250 MG IVPB (06:40)
[2023-09-07] MEDS: TRANEXAMIC ACID 1,000MG/ISO100 1,000 MG/100 ML BAG 200 MG IVPB (07:00)
--- NOTE | 2023-09-07 07:12 | WPDHPUPDATE1 ---
History and Physical Update Update Date/Time: 09/07/23 07:12 History and Physical has been reviewed, including an updated exam of the patient. There are NO changes in the patient's condition. Risks, benefits, and alternatives have been discussed and questions answered. Patient agrees to proceed with procedure.
--- NOTE | 2023-09-07 07:15 | WPDANESEPPF ---
Anes - Initial Pre Proc Eval Procedure: Operation Date: 09/07/23 07:30 Proposed Procedures p Left Total Hip Arthroplasty Anterior Approach - Darian Osman MD Date/Time: 09/07/23 07:15 Surgeon: Darian Osman MD Pre Op Diagnosis: O.A. left Hip Patient Data Age: 78 Gender: F Height: 1.65 m Weight: 71.8 kg Last Vital Signs Temp 98.7 F 09/07/23 06:52 Pulse 92 09/07/23 06:52 Resp 16 09/07/23 06:52 BP 165/97 H 09/07/23 06:52 Pulse Ox 96 09/07/23 06:52 O2 Del Method Room Air 09/07/23 06:52 Allergies Allergy/AdvReac Type Severity Reaction Status Date / Time pentazocine Allergy Unknown Unknown - Verified 09/07/23 06:19 UNABLE TO RECALL Home Medications Medication Instructions Recorded Confirmed Type multivitamin (Daily Multi-Vitamin 1 tablet PO DAILY 01/21/22 09/07/23 History tablet) aspirin 81 mg capsule 81 mg PO DAILY 06/17/22 09/07/23 History calcium carbonate 600 mg-vitamin 1 tablet PO DAILY 06/17/22 09/07/23 History D3 20 mcg (800 unit) tablet ibuprofen 200 mg tablet 200 mg PO Q6H PRN Pain 06/17/22 09/07/23 History vit C 250 mg-vit E 90 mg-zinc 40 1 tablet PO BID 06/17/22 09/07/23 History mg-copper 1 yr-tutwmz-adpgxf capsule (PreserVision AREDS-2) mirabegron 50 mg tablet,extended 50 mg PO DAILY #90 tabs 11/19/22 09/07/23 Rx release 24 hr (Myrbetriq) valsartan 80 1 tablet PO DAILY #90 tabs 03/10/23 09/07/23 Rx mg-hydrochlorothiazide 12.5 mg tablet rosuvastatin 10 mg tablet 5 mg PO DAILY #45 tabs 07/23/23 09/07/23 Rx acetaminophen 325 mg tablet 650 mg PO TID PRN Pain 08/18/23 09/07/23 History (Tylenol) metoprolol succinate 25 mg 25 mg PO DAILY #90 tabs 09/03/23 09/07/23 Rx tablet,extended release 24 hr Patient hx anesthesia problems: none Family hx anesthesia problems: none Results Review: All pre-operative results and documents have been reviewed as part of the pre-operative evaluation. [facility] Past Medical History Medical History (Updated 09/04/23 @ 07:41 by SAHRA Dominguez) Bladder incontinence High cholesterol HTN (hypertension) Surgical History Surgical History (Updated 06/17/22 @ 11:25 by Lori Pritchett MA) History of cataract surgery bilateral History of hysterectomy with oophorectomy History of laparoscopic cholecystectomy History of lumbar surgery decompression / microdiscectomy/ decompression-microdiscectomy X3 surgeries History of total right hip arthroplasty 2016 Family History Family History Mother Family history of malignant neoplasm of breast in first degree relative, Onset Age: 70 Other Family history of cardiovascular disease Family history of hearing loss Family history of malignant neoplasm of breast Family history of mental disorder Social History Social History (Updated 04/21/23 @ 08:00 by Lori Pritchett MA) Smoking status: Never smoker Second hand tobacco smoke exposure: No Alcohol intake: never Substance use: never Substance use type: does not use Lack of Transportation: No Lack of Food: Never True Current Housing: I Have Housing Concerned About Future Housing: No Difficulty Paying Gas/Electric Bills: No Difficulty Paying for Meds: YES Currently Unemployed: No Education: Associate Degree Difficulty w/ Childcare or Family Care: No Living arrangements: with family Occupation/Education: retired Gender identity (if verbalized by the patient): Female Sexual Orientation (if Verbalized by the Patient): Straight or Heterosexual Spiritual care concerns: No Agree to blood products: Yes Anes - Eval Final PreProcedure Day of Procedure 09/07/23 07:15 Patient weight: normal Heart: regular rate and rhythm Lungs: clear to auscultation Airway: Mallampati scale class II Neurological: alert and oriented Last oral intake: >/= 8 hours ASA classification: II Emergent: no Anes
[2023-09-07] MEDS: ceFAZolin 2 GM/D5W 50 ML 2 GM/50 ML BAG IVPB (07:44)
[2023-09-07] MEDS: ceFAZolin SODIUM 1 GM VIAL 3 GM (09:22)
[2023-09-07] MEDS: TRANEXAMIC ACID 1,000 MG/10 ML AMPUL 1000 MG IV PUSH (10:38)
[2023-09-07] MEDS: ceFAZolin SODIUM 1 GM VIAL 2 GM IV PUSH (10:40)
--- NOTE | 2023-09-07 11:06 | W.PM.PROC2 ---
Procedure Note - Detailed Date of Procedure 09/07/23 Pre-op Diagnosis O.A. left Hip Post-op Diagnosis Same Procedure Performed Left total hip arthroplasty direct anterior approach Surgeon Darian Osman MD Logistics Engineering Manager Jose Carlos Anesthesia General Description of Procedure Patient was brought to the operating room and general anesthesia was administered. She received 2 g of Ancef weight based vancomycin 1 g of tranexamic acid preoperatively. Feet were padded boots applied SCDs applied and [facility] the left hip prepped draped usual fashion. The cm longitude incision was made starting 3 cm lateral to the ASIS. Dissection was carried down to the fascia over the tensor fascia galilea which was exposed and longitudinally incised and elevated off the anterior 50% of the tensor fascia galilea muscle. Interval between the tensor and rectus femoris developed. Crossing vessels from ascending lateral femoral circumflex vessels were isolated ligated with suture and divided. Retractor was placed anteromedial to capsule the hip abducted internally rotated the gluteus minimus elevated off the lateral capsule. The minimus muscle and tendon looked normal. Inverted T capsulotomy was performed. Femoral neck osteotomy made according to preoperative templating. Femoral head measured 48.5 mm in diameter was severely arthritic. Labrum was excised little bit of residual articular cartilage removed from the acetabulum. The leg was externally rotated extended and the interval between conjoined tendon and piriformis incised which allowed the piriformis to flipped and minimal recession conjoined tendon. With the leg back in the horizontal position external rotation and traction the acetabulum was exposed and prepared reaming up to 49 mm at which point we could see that the 50 mm was the proper size. A light reaming with the 50 mm Reamer we chose the emphasis Depuy cup and would not seat. We did a careful full depth reaming with the 50 Reamer and at this time the emphasis cup would seat and it was very snug then excellent press fit. Was placed at 40? of abduction and anteversion matching her anatomy. Single screw was placed in the ilium. 0 degree 36 mm inner diameter polyethylene liner was fully seated without difficulty. The femur was externally rotated extended with the table hook exposing the proximal femur and we broached up to a size Actis 5 and trialed. Leg lengths were equal and the hip was stable. We calcar planed and evaluated the torsional stability of the broach in that had a little bit of play so we broached up to a size 6 which was quite solid. We countersunk this an additional 2 mm to compensate for the size jump trialed and with a -2 head trial again there were equal leg lengths and appropriate soft tissue tension and stability. Final calccar planing was performed with the precision saw and the size 6 high offset Actis stem was fully seated without difficulty. Excellent stability no cracks in the calcar. We trialed 1 more time with a-2 head it was stable with appropriate soft tissue tension. The -2 cobalt chromium head was impacted onto the clean and dried trunnion and after thorough irrigation of the wound again the hip was reduced stability reconfirmed. Local anesthetic cocktail was injected into the periarticular soft tissues. The superior capsular flap edges were reapproximated with 2. Vicryl. Fascia was closed with running 1. Vicryl drain in the subcu skin closed with 2 subcutaneous Vicryl and glue EBL was 200 cc. Not enough blood to give back any Cell Saver blood. Additional 2 g of Ancef and 1 g of TXA were given time wound closure. There were no complications she was transferred postop recovery room in stable condition. We will allow her to be weight-bearing as tolerated with a walker for 4 weeks. Estimated Blood Loss 200 Complications No immediate complications Condition Stable Disposition PACU
--- NOTE | 2023-09-07 11:24 | PM.OP ---
Procedure Note - Brief Procedure Note - Brief Date of procedure: 09/07/23 O.A. left Hip Procedure performed: Left anterior total hip arthroplasty Surgeon: SAHRA Dominguez Description of procedure: 78 year old female underwent left anterior total hip arthroplasty. I was involved in the procedure including positioning the patient on the OR table as well as 1st assisting through the time of surgery. Total time spent was 4 hours
[2023-09-07] MEDS: fentaNYL CITRATE INJ (*CRX) 100 MCG/2 ML VIAL 25 MCG IV PUSH ×5 (11:44→12:13)
[2023-09-07] MEDS: oxyCODONE HCL (*CRX) 5 MG TAB IR PO (13:49)
[2023-09-07] MEDS: SODIUM CHLORIDE 0.9% IV 1,000 ML 125 ML IV CONT (13:50)
--- NOTE | 2023-09-07 14:26 | PC.NURSE ---
pt working with therapy after surgery
--- NOTE | 2023-09-07 15:37 | PC.NURSE ---
This patient, Daya Nova, was admitted to [facility] Surg Room 331-01. Patient/family oriented to hospital policies and general routines including ID bracelet, bed and alarms, visiting hours, pain management, procedures, bathroom and other care routines, personal items, smoking policy, room service/diet, and visiting hours. Information on how to activate the Rapid Response Team has been discussed. Patient/Family are encouraged to report perceived risks to care and to ask questions if they do not understand what they are told or what they should do.
[2023-09-07] MEDS: ceFAZolin 1 GM/NS 50 ML 1 GM/50 ML BAG IVPB (17:05)
[2023-09-07] MEDS: SENNA/DOCUSATE SODIUM TABLET 2 TAB PO (17:05)
[2023-09-07] MEDS: oxyCODONE HCL (*CRX) 2.5 MG TAB IR PO ×2 (17:05→21:31)
[2023-09-07] MEDS: VANCOMYCIN 1,000 MG/NS 250 ML 1,000 MG/250 ML BAG 250 MG IVPB (18:28)
--- NOTE | 2023-09-07 20:05 | WPDCN ---
Assessment and Plan Assessment and plan (1) Osteoarthritis of left hip: Code(s): M16.12 - Unilateral primary osteoarthritis, left hip Status: Acute Assessment and Plan: Postoperative day 0 status post left total hip arthroplasty, direct anterior approach. Wound care, pain control, DVT prophylaxis deferred to Dr. Osman. Agree with PT/OT. Check baseline labs in a.m. (2) Hypertension: Code(s): I10 - Essential (primary) hypertension Status: Acute Assessment and Plan: Blood pressures were reviewed and they have been stable postoperatively. Resume metoprolol, valsartan, and hydrochlorothiazide. Continue to monitor blood pressures closely. (3) Hyperlipidemia: Code(s): E78.5 - Hyperlipidemia, unspecified Status: Acute Assessment and Plan: Continue rosuvastatin. Check LFTs in a.m. Plan Thank you for allowing us to participate in this patient's care. Please do not hesitate to contact us with any questions. HPI Data of Consult Date/Time: 09/07/23 20:05 Requesting Physician: Darian Osman MD Consult Narrative Reason for consult: Medical management. Narrative: This is a very pleasant 78-year-old female with osteoarthritis, hypertension, and hyperlipidemia from the hospitalist service has been consulted for help managing her medical conditions postoperatively. She presented today for elective left total hip arthroplasty due to ongoing left hip pain despite conservative outpatient treatment. Her surgery was performed under general anesthesia with no immediate complications documented an estimated blood loss of 200 mL. Postoperatively her pain controlled. She has been up with a walker and up to the chair without issue. She denies postoperative fever, chills, chest pain, shortness a breath, nausea, and vomiting. She also denies paresthesias, skin color, and temperature changes distal to the surgical site. 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 With regards to her chronic medical conditions, she believes her hypertension and hyperlipidemia are well controlled on her home medication. On discharge she will be going home with her who will help take care of her. She denies history of venous thromboembolism. Review of Systems Review of Systems: Twelve systems were reviewed and are negative except for as per HPI. [facility] Past Medical History Medical History (Updated 09/07/23 @ 23:49 by Sanjuana Rosas PA-C) Bladder incontinence Hyperlipidemia Hypertension Surgical History Surgical History (Updated 09/07/23 @ 23:48 by Sanjuana Rosas PA-C) History of bilateral cataract extraction History of hysterectomy with oophorectomy History of laparoscopic cholecystectomy History of lumbar surgery decompression / microdiscectomy/ decompression-microdiscectomy X3 surgeries History of total left hip arthroplasty (08/2023) History of total right hip arthroplasty (2015) Family History Family History Mother Family history of malignant neoplasm of breast in first degree relative, Onset Age: 70 Other Family history of cardiovascular disease Family history of hearing loss Family history of malignant neoplasm of breast Family history of mental disorder Social History Social History (Updated 09/07/23 @ 23:48 by Sanjuana Rosas PA-C) Social History: Surrogate medical decision maker: Toro Nova, spouse. Code status: Full code. Smoking status: Never smoker Second hand tobacco smoke exposure: No Alcohol intake: never Substance use: never Substance use type: does not use Lack of Transportation: No Lack of Food: Never True Current Housing: I Have Housing Concerned About Future Housing: No Difficulty Paying Gas/Electric Bills: No Difficulty Paying for Meds: YES Currently Unemployed: No
[2023-09-07] MEDS: METOPROLOL SUCCINATE EXT REL 25 MG TABCR PO (21:31)
[2023-09-07] MEDS: FAMOTIDINE 20 MG TABLET PO (21:32)
[2023-09-08] VITALS: PULSE 97
[2023-09-08] MEDS: oxyCODONE HCL (*CRX) 2.5 MG TAB IR PO ×3 (00:31→08:26)
[2023-09-08] MEDS: ACETAMINOPHEN 500 MG TABLET 1000 MG PO ×2 (00:31→06:12)
[2023-09-08] MEDS: ceFAZolin 1 GM/NS 50 ML 1 GM/50 ML BAG IVPB ×2 (00:32→08:25)
[2023-09-08 03:06] VITALS: BP 129/80; PULSE 93; RESP 14; TEMP 36.3; O2SAT 98
[2023-09-08] MEDS: VANCOMYCIN 1,000 MG/NS 250 ML 1,000 MG/250 ML BAG 250 MG IVPB (06:12)
--- NOTE | 2023-09-08 06:24 | PM.PNORT ---
Subjective Subjective Date/Time Seen: 09/08/23 06:24 Interval history: Postop day 1 patient is alert. She signs stable. Neurovascularly she is intact pain is well controlled. Patient up walking therapy yesterday in the halls and is comfortable. Her drain is out. Dressing is dry and intact. Morning labs have not been completed yet. We will plan have the patient work therapy this morning and plan to discharge home later this morning once IV antibiotics have been completed. Objective Data Vital Signs Vital Signs: Vital Signs - 24 hr 09/07/23 06:52 09/07/23 11:18 09/07/23 11:30 Temperature 37.1 C 36.7 C Pulse Rate 92 76 80 Respiratory Rate 16 25 H 20 Blood Pressure 165/97 H 88/44 L 119/65 Pulse Oximetry 96 100 100 Oxygen Delivery Room Air Simple Face Mask Simple Face Mask Oxygen Flow Rate 8 8 09/07/23 11:45 09/07/23 12:00 09/07/23 12:15 Temperature Pulse Rate 86 80 84 Respiratory Rate 24 H 14 18 Blood Pressure 135/76 145/75 H 134/79 Pulse Oximetry 99 99 99 Oxygen Delivery Room Air Room Air Room Air Oxygen Flow Rate 09/07/23 12:30 09/07/23 12:45 09/07/23 13:00 Temperature Pulse Rate 84 77 88 Respiratory Rate 18 12 16 Blood Pressure 140/78 127/78 130/74 Pulse Oximetry 100 98 95 Oxygen Delivery Room Air Room Air Room Air Oxygen Flow Rate 09/07/23 13:15 09/07/23 13:42 09/07/23 14:01 Temperature 36.7 C 36.1 C L Pulse Rate 98 88 89 Respiratory Rate 14 18 16 Blood Pressure 145/78 H 136/73 131/74 Pulse Oximetry 98 98 97 Oxygen Delivery Room Air Oxygen Flow Rate 09/07/23 14:21 09/07/23 15:06 09/07/23 16:11 Temperature 37.1 C 36.7 C Pulse Rate 98 85 Respiratory Rate 18 20 Blood Pressure 123/73 135/71 Pulse Oximetry 96 97 Oxygen Delivery Room Air Oxygen Flow Rate 09/07/23 16:00 09/07/23 19:06 09/07/23 23:06 Temperature 36.9 C 37.1 C Pulse Rate 91 102 H 100 Respiratory Rate 14 16 Blood Pressure 124/71 122/69 Pulse Oximetry 96 95 Oxygen Delivery Oxygen Flow Rate 09/07/23 20:00 09/07/23 20:00 09/08/23 00:00 Temperature Pulse Rate 100 104 H 97 Respiratory Rate 16 Blood Pressure Pulse Oximetry 95 Oxygen Delivery Room Air Oxygen Flow Rate 09/08/23 03:06 Temperature 36.3 C L Pulse Rate 93 Respiratory Rate 14 Blood Pressure 129/80 Pulse Oximetry 98 Oxygen Delivery Oxygen Flow Rate Intake/Output Intake/Output: Intake & Output 09/05/23 09/06/23 09/07/23 09/08/23 23:59 23:59 23:59 23:59 Intake Total 750 1750 Output Total 50 Balance 700 1750 Meds/Results Medications: Active Medications Generic Name Dose Route Start Last Admin Trade Name Freq PRN Reason Stop Dose Admin Acetaminophen 1,000 mg 09/07/23 12:06 09/08/23 06:12 Acetaminophen 500 Mg Tablet PO 1,000 mg Q6HR MAHESH Administration Apixaban 2.5 mg 09/08/23 09:00 Apixaban 2.5 Mg Tablet PO Q12HR [facility] Cefdinir 300 mg 09/08/23 13:00 Cefdinir 300 Mg Capsule PO Q12HR MAHESH Celecoxib 100 mg 09/08/23 09:00 Celecoxib 100 Mg Capsule PO DAILY [facility] Famotidine 20 mg 09/07/23 21:00 09/07/23 21:32 Famotidine 20 Mg Tablet PO 20 mg Q12HR MAHESH Administration Hydrochlorothiazide 12.5 mg 09/08/23 09:00 Hydrochlorothiazide 12.5 Mg Capsule PO QAM [facility] Cefazolin Sodium 1 gm in 50 mls @ 100 mls/hr 09/07/23 16:00 09/08/23 00:32 Ancef 1 Gm/Ns 50 Ml IVPB 09/08/23 08:29 100 mls/hr Q8H MAHESH Administration Vancomycin HCl 1,000 mg in 250 mls @ 250 mls/hr 09/07/23 19:00 09/08/23 06:12 Vancomycin 1,000 Mg/Ns 250 Ml IVPB 09/08/23 07:59 250 mls/hr Q12H MAHESH Administration Metoprolol Succinate 25 mg 09/07/23 21:00 09/07/23 21:31 Metoprolol Succinate Ext Rel 25 Mg Tabcr PO 25 mg HS MAHESH Administration Mirabegron 50 mg 09/08/23 09:00 Mirabegron 50 Mg Er Tablet PO DAILY [facility] Morphine Sulfate 2 mg 09/07/23 13:21 Morphine Sulfate (*Crx) 2 Mg/Ml Inj IV PUSH Q3H P
--- NOTE | 2023-09-08 06:26 | PM.DS ---
DS: Admitting Diagnosis Discharge Date 09/08 Admitting Diagnosis Left hip DJD DS: Discharge Diagnosis Discharge Diagnosis (1) Osteoarthritis of left hip: Code(s): M16.12 - Unilateral primary osteoarthritis, left hip Status: Acute DS: Summary Hospital Course Hospital Course: 78-year-old female underwent left anterior total hip arthroplasty on 09/07. Underwent the procedure without complications per been afebrile vital signs are stable. Neurovascularly she is intact weight-bearing as tolerated with a walker for 1 month. Pain is well controlled oxycodone on Eliquis for DVT prophylaxis. She will be discharged home on 09/08. Patient was advised to keep leg elevated home prevent swelling. She home on 1 week course of Omnicef as well as attending Celebrex. She also be on Senokot and MiraLax. At time of dictation morning labs postop day 1 not been completed will review these done later today. Any questions or concerns she has once she goes home she should call the office otherwise we will see her at her appointments. Time Spent with Patient Time attestation: Total time spent providing and/or coordinating discharge services: DS: Data Data Completed and Pending Labs on day of discharge: Labs from last 24 hours 09/07/23 06:46 Blood Type O Positive Antibody Screen Negative Discharge Plan Discharge Patient Disposition: Home, Self-Care Discharge Instructions: DARIAN OSMAN M.D [facility], [address] [address] POST-OPERATIVE DISCHARGE INSTRUCTIONS ANTERIOR TOTAL HIP ARTHROPLASTY 1. Move toes/feet up and down every hour while awake. 2. Be up walking every hour while awake. 3. Use cane in hand opposite of side of hip surgery or walker as comfort allows. Avoid sitting in a chair unless eating, receiving visitors or using the toilet. 4. When resting, lie on back with leg elevated above heart to minimize swelling. Significant swelling could indicate a blood clot and if this occurs, call the office (or go to the ER) to have a venous ultrasound performed. 5. Wound Care: Keep dry sponge on wound for 2 weeks. Use minimal tape. 6. Follow weight bearing status as instructed. 7. May shower with dressing off. Stand Alone Forms: General Discharge Instructions Follow-up/Referrals: Darian Osman MD [Physician] - Keep Reg. Scheduled Appt. Discharge Medications: New acetaminophen 500 mg Tablet 1,000 mg PO Q6HR Qty: 90 0RF Eliquis 2.5 mg Tablet 2.5 mg PO Q12HR Qty: 70 0RF sennosides-docusate sodium [Senokot-S] 8.6-50 mg Tablet 2 tab-cap PO BID Qty: 60 0RF celecoxib [Celebrex] 100 mg Capsule 100 mg PO DAILY Qty: 10 0RF cefdinir 300 mg Capsule 300 mg PO Q12HR Qty: 14 0RF polyethylene glycol 3350 [Miralax] 17 gram Powder In Packet 17 g PO QAM Qty: 30 0RF oxycodone 5 mg Tablet 2.5 mg PO Q4H PRN (Reason: Pain Rated 4-6) Qty: 30 0RF Continued multivitamin [Daily Multi-Vitamin] Tablet 1 tablet PO DAILY calcium carbonate-vitamin D3 600 mg-20 mcg (800 unit) tablet 1 tablet PO DAILY PreserVision AREDS-2 250-90-40-1 mg capsule 1 tablet PO BID Myrbetriq 50 mg tablet extended release 24 hr 50 mg PO DAILY Qty: 90 2RF valsartan-hydrochlorothiazide 80-12.5 mg tablet 1 tablet PO DAILY Qty: 90 2RF rosuvastatin 10 mg tablet 5 mg PO DAILY Qty: 45 2RF metoprolol succinate 25 mg tablet extended release 24 hr 25 mg PO DAILY Qty: 90 1RF Patient Comments: TAKES @ NOC Discontinued acetaminophen [Tylenol] 325 mg Tablet 650 mg PO TID PRN (Reason: Pain) ibuprofen 200 mg tablet 200 mg PO Q6H PRN (Reason: Pain) aspirin 81 mg capsule 81 mg PO DAILY
--- NOTE | 2023-09-08 07:05 | PC.NURSE ---
Drain removed at 0600 per orders. 4x4 and medipore tape applied. Patient tolerated well.
[2023-09-08 08:00] VITALS: BP 112/69; PULSE 87; PULSE 88; RESP 16; TEMP 36.5; O2SAT 93
[2023-09-08] MEDS: polyethylene glycoL 3350 17 GM POWD.PACK PO (08:25)
[2023-09-08] MEDS: APIXABAN 2.5 MG TABLET PO (08:26)
[2023-09-08] MEDS: MIRABEGRON 50 MG ER TABLET PO (08:26)
[2023-09-08] MEDS: CELECOXIB 100 MG CAPSULE PO (08:26)
[2023-09-08] MEDS: ROSUVASTATIN 5 MG TABLET PO (08:26)
[2023-09-08] MEDS: VALSARTAN 80 MG TABLET PO (08:26)
[2023-09-08] MEDS: SENNA/DOCUSATE SODIUM TABLET 2 TAB PO (08:26)
[2023-09-08] MEDS: hydroCHLOROthiazide 12.5 MG CAPSULE PO (08:26)
[2023-09-08] MEDS: FAMOTIDINE 20 MG TABLET PO (08:31)
[2023-09-08 09:20] LABS: Basophils Percent Auto 0.3 % (0.2-1.2); Eosinophils Percent Auto 0.1 % (0-4.4); Hematocrit 32.2 % (37.0-47.0); Hemoglobin 10.4 g/dL (12.0-15.0); Immature Granulocyte Absolute 0.04 K/mm3 (0.00-0.031); Immature Granulocyte Percent A 0.3 % (0-0.5); Lymphocytes Absolute Auto 1.17 K/mm3 (0.9-3.2); Mean Corpuscular HGB Conc 32.3 g/dl (32-36); Mean Corpuscular Hemoglobin 29.2 pg (26-34); Mean Corpuscular Volume 90.4 fl (80-100); Mean Platelet Volume 9.8 fl (7.4-10.4); Monocytes Absolute Auto 1.1 K/mm3 (0.1-0.6); Monocytes Percent Auto 8.7 % (2.6-8.5); Neutrophils Absolute Auto 10.5 K/mm3 (1.3-6.7); Neutrophils Percent Auto 81.6 % (45.5-73.1); Platelet Count Result 295 k/mm3 (150-375); Red Blood Count 3.56 M/mm3 (4.2-5.4); Red Cell Distribution Width 12.6 % (11.5-14.5); White Blood Count 12.9 K/mm3 (4.5-10.0)
[2023-09-08 09:28] LABS: Alanine Aminotransferase 68 U/L (6-35); Albumin Level 3.4 g/dL (3.5-5.1); Alkaline Phosphatase 69 U/L (38-126); Anion Gap 5 mmol/L (8-16); Aspartate Amino Transferase 82 U/L (14-36); Bilirubin,Total 0.8 mg/dL (0.2-1.3); Blood Urea Nitrogen 10 mg/dL (7-17); Calcium 8.4 mg/dL (8.4-10.2); Carbon Dioxide 25 mmol/L (22-30); Chloride 105 mmol/L (98-107); Estimated CRCL calculation 57 ml/min; Estimated Glomerular Filt Rate > 60; Glucose 109 mg/dL (65-110); Magnesium 1.7 mg/dL (1.6-2.3); Potassium 3.4 mmol/L (3.4-5.0); Sodium 135 mmol/L (137-145)
== END 2023-09-08 11:51 | disposition home or self-care (01) ==
LOC: ANHSURGERY 06:10 → ANH3MEDSUR 13:26
PROVIDERS: Physician Assistant; Physician Assistant Surgical; PCP Family Medicine Adolescent Medicine; Visit Provider Orthopaedic Surgery
PROC: (CPT 27130; principal; 2023-09-07 07:30)
DX: M16.12 Unilateral primary osteoarthritis, left hip (principal); R32 Unspecified urinary incontinence; I10 Essential (primary) hypertension; E78.5 Hyperlipidemia, unspecified; Z96.641 Presence of right artificial hip joint; Z80.3 Family history of malignant neoplasm of breast; Z79.82 Long term (current) use of aspirin
CPT/HCPCS: 27130; 36415; 73501; 80048; 80076; 83735; 85025; 86850; 86900; 86901; 97116; 97161; 97165; 97530; 97535; 99199; A9270; C1776; J0171; J0690; J1100; J1170; J1885; J2270; J2405; J2704; J2795; J3010; J3370; J7030; J7120

== ENCOUNTER 2023-09-25 13:57 | Outpatient (CLI) | payer MEDICARE, OTHER, SELFPAY ==
--- NOTE | ~2023-09-25 | US_ITS ---
EXAMINATION: US venous doppler [facility] DATE: 09/25/2023 14:38 INDICATION: Left lower limb pain and swelling TECHNIQUE: Grayscale ultrasound images without and with compression and Doppler ultrasound images of the left lower extremity veins were obtained. COMPARISON: None. FINDINGS: The visualized portions of left common femoral vein, profunda (deep) femoral vein, femoral vein, popl iteal vein, peroneal veins, posterior tibial veins, gastrocnemius vein and greater saphenous vein out flow are patent. IMPRESSION: 1. No deep venous thrombosis in the left lower limb. Reviewed, dictated and finalized at location A. WORKER
== END 2023-09-25 13:58 | disposition home or self-care (01) ==
PROVIDERS: PCP Family Medicine Adolescent Medicine; Visit Provider Physician Assistant Surgical
DX: R60.0 Localized edema (principal); Z96.642 Presence of left artificial hip joint
CPT/HCPCS: 93971

== ENCOUNTER 2023-10-05 14:47 | Outpatient (CLI) | payer MEDICARE, OTHER, SELFPAY ==
[2023-10-05 15:30] LABS: Basophils Percent Auto 0.4 % (0.2-1.2); Eosinophils Absolute Auto 0.2 K/mm3 (0-0.3); Eosinophils Percent Auto 2.2 % (0-4.4); Hematocrit 37.3 % (37.0-47.0); Hemoglobin 11.9 g/dL (12.0-15.0); Immature Granulocyte Absolute 0.03 K/mm3 (0.00-0.031); Immature Granulocyte Percent A 0.3 % (0-0.5); Lymphocytes Absolute Auto 1.51 K/mm3 (0.9-3.2); Lymphocytes Percent Auto 14.4 % (18.3-44.2); Mean Corpuscular HGB Conc 31.9 g/dl (32-36); Mean Corpuscular Hemoglobin 28.1 pg (26-34); Mean Platelet Volume 8.9 fl (7.4-10.4); Monocytes Absolute Auto 1.1 K/mm3 (0.1-0.6); Neutrophils Absolute Auto 7.6 K/mm3 (1.3-6.7); Neutrophils Percent Auto 72.7 % (45.5-73.1); Platelet Count Result 490 k/mm3 (150-375); Red Blood Count 4.24 M/mm3 (4.2-5.4); Red Cell Distribution Width 12.7 % (11.5-14.5); White Blood Count 10.5 K/mm3 (4.5-10.0)
== END 2023-10-05 14:48 | disposition home or self-care (01) ==
LOC: ANHLAB 14:50
PROVIDERS: PCP Family Medicine Adolescent Medicine; Visit Provider Orthopaedic Surgery
DX: D64.9 Anemia, unspecified (principal)
CPT/HCPCS: 36415; 85025

== ENCOUNTER 2023-10-09 10:25 | Emergency (ER) | payer MEDICARE, OTHER, SELFPAY ==
--- NOTE | ~2023-10-09 | XR_ITS ---
XR ankle LT min 3V, XR foot LT min 3V 10/09/2023 11:41 Indication: Left ankle and foot swelling Procedure: 4 views left ankle and 4 views left foot Comparison: Comparison to multiple prior studies sequentially, with oldest reviewed study dated 06/26. Findings: There is a chronic small ossific density distal to the fibula and tibia, likely related to remote trauma or degenerative change. No acute fracture or traumatic malalignment. Normal mineralizat ion. There is a degenerative calcaneal enthesophyte at the insertion of the Achilles tendon. There is moderate osteoarthritis of the midfoot. Mild diffuse soft tissue swelling. No foreign bodies. Impression: 1: No acute bone or joint abnormality. Reviewed, dictated and finalized at location B. CLOSER Impression: 1: No acute bone or joint abnormality. Impression: 1: No acute bone or joint abnormality.
[2023-10-09 10:42] VITALS: BP 111/77; PULSE 89; RESP 16; TEMP 36.4; O2SAT 100
[2023-10-09] MEDS: CEPHALEXIN 500 MG CAPSULE PO (11:26)
--- NOTE | 2023-10-09 17:31 | ED.SKABFB ---
HPI - Skin/Abscess/Foreign Bdy General Chief complaint: Extremity Injury, Lower Stated complaint: Swelling to Left Ankle/Foot, Post Op Time Seen by Provider: 10/09/23 11:00 History of Present Illness HPI narrative: Patient had hip surgery done a month ago, and over the last few days has noticed swelling and pain to her foot and ankle with redness of the skin. He denies any other recent injuries. Able to walk on. Related Data Home Medications Medication Instructions Recorded Confirmed multivitamin (Daily Multi-Vitamin 1 tablet PO DAILY 01/21/22 09/07/23 tablet) calcium carbonate 600 mg-vitamin 1 tablet PO DAILY 06/17/22 09/07/23 D3 20 mcg (800 unit) tablet vit C 250 mg-vit E 90 mg-zinc 40 1 tablet PO BID 06/17/22 09/07/23 mg-copper 1 [id number] capsule (PreserVision AREDS-2) Allergies Allergy/AdvReac Type Severity Reaction Status Date / Time pentazocine Allergy Unknown Unknown - Verified 10/09/23 10:58 UNABLE TO RECALL Review of Systems Review of Systems: All systems reviewed & are unremarkable except as noted in HPI and below PMFSH Past Medical History Medical History (Updated 10/09/23 @ 12:46 by Goldie Calloway MD) Bladder incontinence Hyperlipidemia Hypertension Surgical History Surgical History (Updated 09/07/23 @ 23:48 by Sanjuana Rosas PA-C) History of bilateral cataract extraction History of hysterectomy with oophorectomy History of laparoscopic cholecystectomy History of lumbar surgery decompression / microdiscectomy/ decompression-microdiscectomy X3 surgeries History of total left hip arthroplasty (08/2023) History of total right hip arthroplasty (2015) Family History Family History Mother Family history of malignant neoplasm of breast in first degree relative, Onset Age: 70 Other Family history of cardiovascular disease Family history of hearing loss Family history of malignant neoplasm of breast Family history of mental disorder Social History Social History (Updated 09/07/23 @ 23:48 by Sanjuana Rosas PA-C) Social History: Surrogate medical decision maker: Toro Nova, spouse. Code status: Full code. Smoking status: Never smoker Second hand tobacco smoke exposure: No Alcohol intake: never Substance use: never Substance use type: does not use Lack of Transportation: No Lack of Food: Never True Current Housing: I Have Housing Concerned About Future Housing: No Difficulty Paying Gas/Electric Bills: No Difficulty Paying for Meds: YES Currently Unemployed: No Education: Associate Degree Difficulty w/ Childcare or Family Care: No Living arrangements: with family Additional living arrangements comments: Lives with spouse in [place]. 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 Spiritual care concerns: No Agree to blood products: Yes Exam Narrative: EXAMINATION OF ORGAN SYSTEMS/BODY AREAS: Constitutional: Vital signs per nursing GENERAL:[No acute distress, non-toxic appearing.] HEAD: Normal with no signs of head trauma. EYES: EOMI, conjunctiva normal ENT: Hearing grossly intact LUNGS: Nonlabored breathing. HEART: [Regular rate and rhythm]; normal DP pulse to left foot ABD: [Soft], [nontender to palpation] EXT: Able to flex/extend foot/ankle without issue; pitting edema/some tenderness to palpation at ankle/foot SKIN: Redness overlying left foot NEURO: [Alert and oriented x 3. No gross focal sensory or strength deficits.] PSYCH: Normal affect Course Vital Signs Vital signs: Vital Signs Temperature 97.6 F 10/09/23 10:42 Pulse Rate 89 10/09/23 10:42 Respiratory Rate 16 10/09/23 10:42 Blood Pressure 111/77 10/09/23 10:42 Pulse Oximetry 100 10/09/23 10:42 Oxygen Delivery Room Air 10/09/23 10:42 Temperature 97.6 F 10/09/23 10:42 Pulse Rate
== END 2023-10-09 13:06 | disposition home or self-care (01) ==
PROVIDERS: Emergency Provider Emergency Medicine; PCP Family Medicine Adolescent Medicine
DX: L03.116 Cellulitis of left lower limb (principal); E78.5 Hyperlipidemia, unspecified; I10 Essential (primary) hypertension; R32 Unspecified urinary incontinence; Z98.42 Cataract extraction status, left eye; Z98.41 Cataract extraction status, right eye; Z96.643 Presence of artificial hip joint, bilateral; Z90.710 Acquired absence of both cervix and uterus; Z90.49 Acquired absence of other specified parts of digestive tract
CPT/HCPCS: 73610; 73630; 99283; A9270

== ENCOUNTER 2023-10-12 16:38 | Outpatient (CLI) | payer MEDICARE, OTHER, SELFPAY ==
--- NOTE | ~2023-10-12 | US_ITS ---
EXAMINATION: US venous doppler [facility] DATE: 10/12/2023 17:25 INDICATION: Left lower limb swelling. TECHNIQUE: Grayscale ultrasound images without and with compression and Doppler ultrasound images of the left lower extremity veins were obtained. COMPARISON: Ultrasound 09/25/2023 FINDINGS: The visualized portions of left profunda (deep) femoral vein, femoral vein, peroneal veins, posterior tibial veins, and greater saphenous vein outflow are patent. There is thrombus in left common femora l vein and popliteal vein. IMPRESSION: 1. Deep vein thrombosis involving left common femoral vein and popliteal vein. Reviewed, dictated and finalized at location E. GER CHANNEL
== END 2023-10-12 16:39 | disposition home or self-care (01) ==
PROVIDERS: PCP Family Medicine Adolescent Medicine; Visit Provider Orthopaedic Surgery
DX: R60.0 Localized edema (principal); I82.432 Acute embolism and thrombosis of left popliteal vein; I82.412 Acute embolism and thrombosis of left femoral vein
CPT/HCPCS: 93971

== ENCOUNTER 2023-10-12 17:56 | Emergency (ER) | payer MEDICARE, OTHER, SELFPAY ==
--- NOTE | ~2023-10-12 | CT_ITS ---
Clinical Indication: Pulmonary embolus, DVT CT Scan of the Chest with Contrast: Technique: Contiguous sections were acquired throughout the chest after intravenous administration of 100 cc of Omnipaque 350. Dose reduction technique was used on this scan by utilizing automated expos ure control and iterative reconstruction technique. The dose-length product (DLP) was 238.46 mGy-cm. Findings: There is no evidence of any significant mediastinal, hilar or axillary lymphadenopathy. There is no f illing defect in the pulmonary arterial tree to suggest pulmonary embolus. There is no evidence of ao rtic dissection or aneurysm. There is no evidence of pleural or pericardial effusion. The lungs are clear. No pulmonary nodules or infiltrates are noted. Images through the upper abdomen reveal no abnormalities. Impression: No evidence of pulmonary embolus, aortic dissection, or aortic aneurysm. Clear lungs. Reviewed, dictated and finalized at [facility]. MOULDING MACHINE OPERATOR Impression: No evidence of pulmonary embolus, aortic dissection, or aortic aneurysm. Clear lungs.
[2023-10-12 18:53] VITALS: BP 134/86; PULSE 100; RESP 18; TEMP 36.9; O2SAT 97
[2023-10-12 22:15] VITALS: BP 144/71; PULSE 93; RESP 15; O2SAT 96
[2023-10-12 22:18] LABS: Basophils Percent Auto 0.3 % (0.2-1.2); Eosinophils Absolute Auto 0.1 K/mm3 (0-0.3); Eosinophils Percent Auto 0.9 % (0-4.4); Hematocrit 36.4 % (37.0-47.0); Hemoglobin 11.9 g/dL (12.0-15.0); Immature Granulocyte Absolute 0.02 K/mm3 (0.00-0.031); Immature Granulocyte Percent A 0.2 % (0-0.5); Lymphocytes Percent Auto 12.2 % (18.3-44.2); Mean Corpuscular HGB Conc 32.7 g/dl (32-36); Mean Corpuscular Hemoglobin 28.1 pg (26-34); Mean Corpuscular Volume 85.8 fl (80-100); Mean Platelet Volume 8.6 fl (7.4-10.4); Monocytes Absolute Auto 0.9 K/mm3 (0.1-0.6); Monocytes Percent Auto 8.3 % (2.6-8.5); Neutrophils Absolute Auto 8.3 K/mm3 (1.3-6.7); Neutrophils Percent Auto 78.1 % (45.5-73.1); Platelet Count Result 481 k/mm3 (150-375); Red Blood Count 4.24 M/mm3 (4.2-5.4); Red Cell Distribution Width 12.6 % (11.5-14.5); White Blood Count 10.7 K/mm3 (4.5-10.0)
[2023-10-12 22:28] LABS: Anion Gap 11 mmol/L (8-16); Blood Urea Nitrogen 10 mg/dL (7-17); Calcium 9.9 mg/dL (8.4-10.2); Carbon Dioxide 25 mmol/L (22-30); Chloride 94 mmol/L (98-107); Estimated CRCL calculation 67 ml/min; Estimated Glomerular Filt Rate > 60; Glucose 113 mg/dL (65-110); INR 1.1; Potassium 3.7 mmol/L (3.4-5.0); Prothrombin Time 14.4 Seconds (11.1-14.7); Sodium 130 mmol/L (137-145)
[2023-10-12 22:29] LABS: Partial Thromboplastin Time 34.9 SECONDS (22.3-36.8)
[2023-10-13 00:16] VITALS: BP 145/85; PULSE 99; RESP 22; O2SAT 97
[2023-10-13 00:30] VITALS: BP 143/75; PULSE 96; RESP 14; O2SAT 96
--- NOTE | 2023-10-13 01:14 | ED.EXTPRO ---
HPI - Extremity Problem General Chief complaint: Extremity Problem,Nontraumatic Stated complaint: positive doppler left leg Time Seen by Provider: 10/13/23 00:16 History of Present Illness HPI Narrative: Patient is an 78-year-old female presenting with left leg swelling. She had a left hip replacement 5 weeks ago. States that about a week ago she developed redness of her left foot. She was seen here and started on antibiotics for cellulitis. She followed up with her PCP who obtained an ultrasound today which revealed DVTs in her left leg. Patient is on Eliquis and she states she is compliant. No chest pain or shortness of breath. No fevers. No further complaints. Related Data Home Medications Medication Instructions Recorded Confirmed calcium carbonate 600 mg-vitamin 1 tablet PO DAILY 06/17/22 10/14/23 D3 20 mcg (800 unit) tablet vit C 250 mg-vit E 90 mg-zinc 40 1 tablet PO BID 06/17/22 10/14/23 mg-copper 1 [id number] capsule (PreserVision AREDS-2) Allergies Allergy/AdvReac Type Severity Reaction Status Date / Time pentazocine Allergy Unknown Unknown - Verified 10/12/23 17:57 UNABLE TO RECALL Review of Systems Review of Systems: All systems reviewed & are unremarkable except as noted in HPI and below PMFSH Past Medical History Medical History Bladder incontinence Hyperlipidemia Hypertension Surgical History Surgical History History of bilateral cataract extraction History of hysterectomy with oophorectomy History of laparoscopic cholecystectomy History of lumbar surgery decompression / microdiscectomy/ decompression-microdiscectomy X3 surgeries History of total left hip arthroplasty (08/2023) History of total right hip arthroplasty (2015) Family History Family History Mother Family history of malignant neoplasm of breast in first degree relative, Onset Age: 70 Other Family history of cardiovascular disease Family history of hearing loss Family history of malignant neoplasm of breast Family history of mental disorder Social History Social History Social History: Surrogate medical decision maker: Toro Nova, spouse. Code status: Full code. Smoking status: Never smoker Second hand tobacco smoke exposure: No Alcohol intake: never Substance use: never Substance use type: does not use Lack of Transportation: No Lack of Food: Never True Current Housing: I Have Housing Concerned About Future Housing: No Difficulty Paying Gas/Electric Bills: No Difficulty Paying for Meds: No Currently Unemployed: No Education: Associate Degree Difficulty w/ Childcare or Family Care: No Living arrangements: with family Additional living arrangements comments: Lives with spouse in [place]. 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 Spiritual care concerns: No Agree to blood products: Yes Exam Narrative: GENERAL: Well-appearing, In no acute distress, pleasant cooperative HEAD: Normocephalic, atraumatic. EYES: PERRLA and EOMI. ENT: Mucous membranes moist. NECK: Supple. CHEST: Clear to auscultation. No respiratory distress. HEART: Regular rate and rhythm. Normal peripheral pulses. EXTREMITIES: left foot is edematous and erythematous up to the ankle, no significant calf swelling or redness, incision on L hip is well-healing, no wound dehiscence, no drainage, no surrounding cellulitis SKIN: Warm, dry, as above NEURO: No focal deficits. Alert and oriented x3. PSYCH: Normal mood and affect. Course Vital Signs Vital signs: Vital Signs Temperature 98.4 F 10/12/23 18:53 Pulse Rate 100 10/12/23 18:53 Respiratory Rate 18 10/12/23 18
[2023-10-13 01:15] VITALS: BP 144/81; PULSE 101; RESP 12; O2SAT 98
[2023-10-13] MEDS: HYDROmorphone HCL INJ (*CRX) 1 MG/ML SYR 0.5 MG IV PUSH (01:21)
[2023-10-13] MEDS: SODIUM CHLORIDE 0.9% IV 1,000 ML 999 ML IV CONT (01:22)
[2023-10-13 03:46] VITALS: BP 142/67; PULSE 100; RESP 23; O2SAT 95
[2023-10-13 05:46] VITALS: BP 139/89; PULSE 97; RESP 20; O2SAT 95
[2023-10-13] MEDS: APIXABAN 5 MG TABLET 10 MG PO (05:54)
== END 2023-10-13 05:59 | disposition home or self-care (01) ==
PROVIDERS: Physician Assistant; Emergency Provider Emergency Medicine; PCP Family Medicine Adolescent Medicine
DX: T84.86XA Thrombosis due to internal orthopedic prosthetic devices, implants and grafts, initial encounter (principal); I82.412 Acute embolism and thrombosis of left femoral vein; I82.432 Acute embolism and thrombosis of left popliteal vein; E78.5 Hyperlipidemia, unspecified; I10 Essential (primary) hypertension; R32 Unspecified urinary incontinence; Z96.643 Presence of artificial hip joint, bilateral; Z98.42 Cataract extraction status, left eye; Z98.41 Cataract extraction status, right eye; Z90.710 Acquired absence of both cervix and uterus; Z79.01 Long term (current) use of anticoagulants; Y79.2 Prosthetic and other implants, materials and accessory orthopedic devices associated with adverse incidents
CPT/HCPCS: 36415; 71275; 80048; 85025; 85610; 85730; 93971; 96361; 96374; 99284; A9270; J1170; J7030; Q9967

== ENCOUNTER 2023-10-24 09:08 | Emergency (ER) | payer MEDICARE, OTHER, SELFPAY ==
--- NOTE | ~2023-10-24 | US_ITS ---
EXAMINATION:US venous doppler LE LT INDICATION:Left leg swelling TECHNIQUE: Multiple grayscale, color flow and Doppler images of the left lower extremity deep venous systems were obtained and reviewed. COMPARISON:10/12/2023 FINDINGS: The common femoral, superficial femoral and popliteal veins demonstrate normal respiratory variation, augmentation and compressibility. Color flow is also seen within the posterior tibial, pe roneal, greater saphenous and profunda veins. IMPRESSION: 1: No lower extremity deep venous thrombosis. Reviewed, dictated and finalized at location A. [facility]
[2023-10-24 09:11] VITALS: BP 143/70; PULSE 86; RESP 16; TEMP 36.4; O2SAT 99
[2023-10-24 09:55] LABS: Basophils Percent Auto 0.4 % (0.2-1.2); Eosinophils Absolute Auto 0.1 K/mm3 (0-0.3); Eosinophils Percent Auto 0.9 % (0-4.4); Hemoglobin 11.4 g/dL (12.0-15.0); Immature Granulocyte Absolute 0.01 K/mm3 (0.00-0.031); Immature Granulocyte Percent A 0.1 % (0-0.5); Lymphocytes Absolute Auto 1.09 K/mm3 (0.9-3.2); Lymphocytes Percent Auto 12.9 % (18.3-44.2); Mean Corpuscular HGB Conc 32.6 g/dl (32-36); Mean Corpuscular Hemoglobin 27.9 pg (26-34); Mean Corpuscular Volume 85.6 fl (80-100); Mean Platelet Volume 8.6 fl (7.4-10.4); Monocytes Absolute Auto 0.9 K/mm3 (0.1-0.6); Monocytes Percent Auto 10.7 % (2.6-8.5); Neutrophils Absolute Auto 6.3 K/mm3 (1.3-6.7); Platelet Count Result 491 k/mm3 (150-375); Red Blood Count 4.09 M/mm3 (4.2-5.4); Red Cell Distribution Width 12.5 % (11.5-14.5); White Blood Count 8.5 K/mm3 (4.5-10.0)
[2023-10-24 10:08] LABS: Alanine Aminotransferase 27 U/L (6-35); Albumin Level 4.1 g/dL (3.5-5.1); Alkaline Phosphatase 160 U/L (38-126); Anion Gap 9 mmol/L (8-16); Aspartate Amino Transferase 31 U/L (14-36); Bilirubin,Total 0.5 mg/dL (0.2-1.3); Blood Urea Nitrogen 11 mg/dL (7-17); Calcium 9.4 mg/dL (8.4-10.2); Carbon Dioxide 25 mmol/L (22-30); Chloride 98 mmol/L (98-107); Estimated CRCL calculation 67 ml/min; Estimated Glomerular Filt Rate > 60; Glucose 106 mg/dL (65-110); Potassium 3.6 mmol/L (3.4-5.0); Sodium 132 mmol/L (137-145)
--- NOTE | 2023-10-24 10:47 | ED.EXTPRO ---
HPI - Extremity Problem General Chief complaint: Extremity Problem,Nontraumatic Stated complaint: left foot swelling, pain, redness Time Seen by Provider: 10/24/23 09:21 History of Present Illness HPI Narrative: 78-year-old female presenting to the emergency department for evaluation of left foot erythema pain and edema. patient had a left hip replacement and early October and was diagnosed with cellulitis on 10/09. On 10/13 patient was started on Eliquis for a left lower extremity DVT. Patient completed antibiotics on 10/15 and patient noticed worsening swelling and erythema of her foot last night so she presented to the emergency department today for evaluation. Patient denies any fevers denies any associated chest pain or shortness of breath. Related Data Home Medications Medication Instructions Recorded Confirmed calcium carbonate 600 mg-vitamin 1 tablet PO DAILY 06/17/22 10/14/23 D3 20 mcg (800 unit) tablet vit C 250 mg-vit E 90 mg-zinc 40 1 tablet PO BID 06/17/22 10/14/23 mg-copper 1 [id number] capsule (PreserVision AREDS-2) Allergies Allergy/AdvReac Type Severity Reaction Status Date / Time pentazocine Allergy Unknown Unknown - Verified 10/24/23 09:50 UNABLE TO RECALL Review of Systems Review of Systems: All systems reviewed & are unremarkable except as noted in HPI and below PMFSH Past Medical History Medical History Bladder incontinence Hyperlipidemia Hypertension Surgical History Surgical History History of bilateral cataract extraction History of hysterectomy with oophorectomy History of laparoscopic cholecystectomy History of lumbar surgery decompression / microdiscectomy/ decompression-microdiscectomy X3 surgeries History of total left hip arthroplasty (08/2023) History of total right hip arthroplasty (2015) Family History Family History Mother Family history of malignant neoplasm of breast in first degree relative, Onset Age: 70 Other Family history of cardiovascular disease Family history of hearing loss Family history of malignant neoplasm of breast Family history of mental disorder Social History Social History Social History: Surrogate medical decision maker: Toro Nova, spouse. Code status: Full code. Smoking status: Never smoker Second hand tobacco smoke exposure: No Alcohol intake: never Substance use: never Substance use type: does not use Lack of Transportation: No Lack of Food: Never True Current Housing: I Have Housing Concerned About Future Housing: No Difficulty Paying Gas/Electric Bills: No Difficulty Paying for Meds: No Currently Unemployed: No Education: Associate Degree Difficulty w/ Childcare or Family Care: No Living arrangements: with family Additional living arrangements comments: Lives with spouse in [place]. 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 Spiritual care concerns: No Agree to blood products: Yes Exam Narrative: APPEARANCE: Well appearing, no pain, no distress, well-nourished. HEAD: normocephalic, atraumatic. EYES: PERRLA/EOMI, conjunctivae clear. NOSE: Normal no drainage EARS:TMS clear with good light reflex. THROAT: Pharynx clear, no exudate. NECK: Supple. No adenopathy, no masses. RESPIRATORY: Airway patent, respirations nonlabored. Clear to auscultation bilaterally, no rales, rhonchi, wheezing. CARDIOVASCULAR: Regular rate and rhythm without murmurs rubs or gallops. ABDOMINAL: Soft, nontender, nondistended, normal bowel sounds MUSCULOSKELETAL: Moves all extremities. NEURO: Alert. Cranial nerves II through XII intact. Good gait. Good coordination SKIN: erythema and pitting meme
[2023-10-24] MEDS: CLINDAMYCIN HCL 150 MG CAP 450 MG PO (11:24)
[2023-10-24 11:25] VITALS: BP 140/70; PULSE 80; RESP 16; O2SAT 100
== END 2023-10-24 11:26 | disposition home or self-care (01) ==
PROVIDERS: Emergency Provider Emergency Medicine; PCP Family Medicine Adolescent Medicine
DX: L03.116 Cellulitis of left lower limb (principal); E78.5 Hyperlipidemia, unspecified; I10 Essential (primary) hypertension; R32 Unspecified urinary incontinence; Z96.643 Presence of artificial hip joint, bilateral; Z86.718 Personal history of other venous thrombosis and embolism; Z98.42 Cataract extraction status, left eye; Z98.41 Cataract extraction status, right eye; Z90.49 Acquired absence of other specified parts of digestive tract; Z90.710 Acquired absence of both cervix and uterus; Z79.01 Long term (current) use of anticoagulants
CPT/HCPCS: 36415; 80053; 85025; 93971; 99284; A9270

== ENCOUNTER 2024-01-01 13:02 | Outpatient (CLI) | payer MEDICARE, OTHER, SELFPAY ==
--- NOTE | ~2024-01-01 | XR_ITS ---
Clinical Indication: Shortness of breath PA and lateral views of the chest: Comparison: 04/23/2023 Findings: Stable focal bibasilar nodular opacities. No other pulmonary abnormality seen. Cardiomedia stinal silhouette is within normal limits. Bones and soft tissues are unremarkable. Impression: No acute abnormality. Reviewed, dictated and finalized at [facility]. GNER ARCHITECT Impression: No acute abnormality.
== END 2024-01-01 13:03 | disposition home or self-care (01) ==
PROVIDERS: PCP Family Medicine Adolescent Medicine; Visit Provider Family Medicine Adolescent Medicine
DX: R06.02 Shortness of breath (principal)
CPT/HCPCS: 71046

== ENCOUNTER 2024-05-16 13:59 | Outpatient (CLI) | payer MEDICARE, OTHER, SELFPAY ==
[2024-05-16 14:39] LABS: Basophils Absolute Auto 0.1 K/mm3 (0.0-0.1); Basophils Percent Auto 0.5 % (0.2-1.2); Eosinophils Absolute Auto 0.1 K/mm3 (0-0.3); Eosinophils Percent Auto 1.2 % (0-4.4); Hematocrit 40.7 % (37.0-47.0); Hemoglobin 13.5 g/dL (12.0-15.0); Immature Granulocyte Absolute 0.02 K/mm3 (0.00-0.031); Immature Granulocyte Percent A 0.2 % (0-0.5); Lymphocytes Absolute Auto 1.48 K/mm3 (0.9-3.2); Lymphocytes Percent Auto 15.8 % (18.3-44.2); Mean Corpuscular HGB Conc 33.2 g/dl (32-36); Mean Corpuscular Hemoglobin 28.7 pg (26-34); Mean Corpuscular Volume 86.6 fl (80-100); Mean Platelet Volume 8.9 fl (7.4-10.4); Monocytes Absolute Auto 0.9 K/mm3 (0.1-0.6); Monocytes Percent Auto 9.6 % (2.6-8.5); Neutrophils Absolute Auto 6.8 K/mm3 (1.3-6.7); Neutrophils Percent Auto 72.7 % (45.5-73.1); Platelet Count Result 373 k/mm3 (150-375); White Blood Count 9.4 K/mm3 (4.5-10.0)
[2024-05-16 14:40] LABS: Prothrombin Time 13.1 Seconds (11.1-14.7)
[2024-05-16 14:48] LABS: Alanine Aminotransferase 26 U/L (6-35); Albumin Level 4.4 g/dL (3.5-5.1); Alkaline Phosphatase 84 U/L (38-126); Anion Gap 7 mmol/L (4-12); Aspartate Amino Transferase 44 U/L (14-36); Bilirubin,Total 0.5 mg/dL (0.2-1.3); Blood Urea Nitrogen 15 mg/dL (7-17); Calcium 9.4 mg/dL (8.4-10.2); Carbon Dioxide 29 mmol/L (22-30); Chloride 95 mmol/L (98-107); Cholesterol 172 mg/dL (0-200); Estimated Glomerular Filt Rate > 60; Glucose 83 mg/dL (65-110); HDL Direct 75 mg/dL; Potassium 3.8 mmol/L (3.4-5.0); Sodium 131 mmol/L (137-145); Triglycerides 384 mg/dL (<150)
[2024-05-16 16:25] LABS: LDL Cholesterol Direct 77 mg/dL
== END 2024-05-16 14:00 | disposition home or self-care (01) ==
PROVIDERS: PCP Family Medicine Adolescent Medicine; Visit Provider Nurse Practitioner Family
DX: E78.5 Hyperlipidemia, unspecified (principal); I10 Essential (primary) hypertension; R40.0 Somnolence; R53.83 Other fatigue; M54.32 Sciatica, left side; R23.3 Spontaneous ecchymoses
CPT/HCPCS: 36415; 80053; 80061; 82607; 84443; 85025; 85610

== ENCOUNTER 2024-05-19 09:14 | Outpatient (CLI) | payer MEDICARE, OTHER, SELFPAY ==
[2024-05-19 11:17] LABS: Hepatitis C Virus Antibody Negative (Negative)
== END 2024-05-19 09:15 | disposition home or self-care (01) ==
PROVIDERS: PCP Family Medicine Adolescent Medicine; Visit Provider Nurse Practitioner Family
DX: R74.8 Abnormal levels of other serum enzymes (principal)
CPT/HCPCS: 36415; 86803

== ENCOUNTER 2024-08-10 13:40 | Emergency (ER) | payer MEDICARE, OTHER, SELFPAY ==
[2024-08-10 13:44] VITALS: BP 125/75; PULSE 73; RESP 20; TEMP 36.9; O2SAT 100
--- NOTE | 2024-08-10 13:50 | ED.GENADULT ---
HPI - General Adult General Chief complaint: Extremity Problem,Nontraumatic Stated complaint: Right Shoulder Pain Time Seen by Provider: 08/10/24 13:50 Source: patient Mode of arrival: ambulatory Limitations: no limitations History of Present Illness HPI narrative: Patient is a 79-year-old female who presents with right scapular pain that started last night. Patient states pain is still present but not as sharp today. Patient is able to move right arm without increased pain. Denies any pain on palpation. Reports she took leftover pain medicine from surgery this morning. Denies any numbness, tingling or weakness to right extremity. History of cholecystectomy. Related Data Home Medications Medication Instructions Recorded Confirmed calcium 600 mg (as 1 tablet PO DAILY 06/17/22 07/27/24 carbonate)-vitamin D3 20 mcg (800 unit) tablet mv-mn-folic 200 mcg-vit K 15 cap PO 11/04/23 07/27/24 mcg-lutein 5 mg-zeaxanthin 1 mg capsule (PreserVision AREDS 2 Plus Multivit) aspirin 81 mg capsule 81 mg PO DAILY 04/13/24 07/27/24 multivitamin 1 tablet PO DAILY 04/13/24 07/27/24 Allergies Allergy/AdvReac Type Severity Reaction Status Date / Time clindamycin Allergy Intermediate Rash Verified 08/10/24 13:50 pentazocine Allergy Unknown Unknown - Verified 08/10/24 13:50 UNABLE TO RECALL Review of Systems Review of Systems: All systems reviewed & are unremarkable except as noted in HPI and below Constitutional: Constitutional: Denies body ache(s), Denies chills, Denies fatigue, Denies fever(s), Denies headache(s), Denies malaise and Denies weakness Eyes: Eyes: Denies blurry vision, Denies irritation and Denies loss of vision ENT: Denies otalgia, Denies headache(s), Denies nasal discharge, Denies sinus pain and Denies sore throat Cardiovascular: Cardiovascular: Denies chest pain, Denies irregular heart rhythm and Denies dyspnea Respiratory: Respiratory: Denies dyspnea Gastrointestinal: Gastrointestinal: Denies abdominal pain, Denies melena, Denies hematochezia, Denies diarrhea, Denies nausea and Denies vomiting Musculoskeletal: Musculoskeletal: Reports back pain, Denies myalgias and Denies arthralgias Integumentary/Breasts: Skin/Breast: Denies pruritus and Denies rash Neurologic: Denies headache(s), Denies loss of vision and Denies weakness Psychiatric: Psychiatric: Reports no additional psychiatric complaints Endocrine: Endocrine: Denies fatigue PMFSH Past Medical History Medical History Bladder incontinence Hyperlipidemia Hypertension Left femoral vein DVT Surgical History Surgical History History of bilateral cataract extraction History of hysterectomy with oophorectomy History of laparoscopic cholecystectomy History of lumbar surgery decompression / microdiscectomy/ decompression-microdiscectomy X3 surgeries History of total left hip arthroplasty (08/2023) History of total right hip arthroplasty (2015) Family History Family History Mother Family history of malignant neoplasm of breast in first degree relative, Onset Age: 70 Breast cancer Father Acute myocardial infarction Sibling No problems noted. Other Family history of cardiovascular disease Family history of hearing loss Family history of malignant neoplasm of breast Family history of mental disorder Social History Social History Social History: Surrogate medical decision maker: Toro Nova, spouse. Code status: Full code. Smoking status: Never smoker Second hand tobacco smoke exposure: No Alcohol intake: never Substance use: never Substance use type: does not use Do You Feel Safe in your Home?: Yes Lack of Transportation: No Lack of Food: Never Tr
== END 2024-08-10 14:30 | disposition home or self-care (01) ==
PROVIDERS: Emergency Provider Nurse Practitioner Family; PCP Family Medicine Adolescent Medicine
DX: S46.911A Strain of unspecified muscle, fascia and tendon at shoulder and upper arm level, right arm, initial encounter (principal); X58.XXXA Exposure to other specified factors, initial encounter; E78.5 Hyperlipidemia, unspecified; I10 Essential (primary) hypertension; Z86.718 Personal history of other venous thrombosis and embolism; Z98.42 Cataract extraction status, left eye; Z98.41 Cataract extraction status, right eye; Z96.643 Presence of artificial hip joint, bilateral; Z79.82 Long term (current) use of aspirin
CPT/HCPCS: 99213; G0463

== ENCOUNTER 2024-08-16 07:32 | Outpatient (CLI) | payer MEDICARE, OTHER, SELFPAY ==
--- NOTE | 2024-08-16 07:40 | ECHO_ITS ---
Patient Info Name: Daya Nova Age: 79 years : 1945 Gender: Female Ht: 65 in Wt: 162 lbs BSA: 1.85 m2 HR: 86 bpm BP: 130 / 81 mmHg Technical Quality: Good Exam Date: 08/16/2024 8:00 AM Exam Location: Echo Lab Patient Status: Outpatient Admit Date: 08/16/2024 Staff Ordering Physician: Alejandro Yap MD Coroner Forensic Technician: Ariadna Akins RDCS Attending Provider: Coleen Howell RD Referring Physician: Marely YAP; Exam Type: CA echo doppler color flow Study Info Indications R01.1 - Cardiac murmur, unspecified Complete two-dimensional, color flow and Doppler transthoracic echocardiogram is performed. Strain analysis performed. Summary 1. Complete two-dimensional, color flow and Doppler transthoracic echocardiogram is performed. 2. Left ventricular chamber dimension is normal. 3. There is mild concentric increased left ventricular wall thickness. 4. Ventricular septum is sigmoid shaped. Resting LVOT gradient is peak 12 mmHg and mean 7 mmHg suggestive of hypertrophic cardiomyopathy. 5. Left ventricular systolic function is normal, estimated at 65-70%. 6. The left ventricular diastolic function is grade I diastolic dysfunction. 7. E/e' 8 is minimally elevated. 8. Global longitudinal strain is abnormal at -15.5%. 9. There is mild aortic valve sclerosis. 10. There is mild aortic valve regurgitation. 11. There is mild tricuspid valve regurgitation. 12. No pulmonary hypertension, estimated pulmonary arterial systolic pressure is 32 mmHg. Left Ventricle E/e' 8 is minimally elevated. Global longitudinal strain is abnormal at -15.5%. Ventricular septum is sigmoid shaped. Resting LVOT gradient is peak 12 mmHg and mean 7 mmHg suggestive of hypertrophic cardiomyopathy. Left ventricular chamber dimension is normal. Left ventricular systolic function is normal, estimated at 65-70%. There is mild concentric increased left ventricular wall thickness. The left ventricular diastolic function is grade I diastolic dysfunction. Right Ventricle Right ventricular systolic function is normal and with normal TAPSE 2.0 cm. Right ventricular chamber dimension is normal. Left Atria Left atrial chamber dimension is normal. Right Atria Right atrial chamber dimension is normal. Aortic Valve The aortic valve is trileaflet. There is mild aortic valve sclerosis. There is no aortic valve stenosis. There is mild aortic valve regurgitation. Pulmonic Valve There is no pulmonic regurgitation. Mitral Valve There is no mitral valve stenosis. There is no mitral valve regurgitation. Tricuspid Valve There is mild tricuspid valve regurgitation. No pulmonary hypertension, estimated pulmonary arterial systolic pressure is 32 mmHg. Pericardium/Pleural There is no pericardial effusion. Inferior Vena Cava Normal inferior vena cava with >50% collapse upon inspiration consistent with normal right atrial pressure, 5 mmHg. Aorta The aortic root size at the sinus of Valsalva is normal. Left Ventricular Outflow Tract Name Value Normal LVOT 2D LVOT Diameter 1.9 cm LVOT Doppler LVOT Peak Gradient 13 mmHg LVOT Mean Gradient 8 mmHg LVOT VTI
== END 2024-08-16 07:33 | disposition home or self-care (01) ==
LOC: ANHCARD 07:33
PROVIDERS: PCP Family Medicine Adolescent Medicine; Visit Provider Family Medicine Adolescent Medicine
DX: R01.1 Cardiac murmur, unspecified (principal); R53.83 Other fatigue; I35.1 Nonrheumatic aortic (valve) insufficiency; I36.1 Nonrheumatic tricuspid (valve) insufficiency
CPT/HCPCS: 93306

== ENCOUNTER 2024-09-30 09:07 | Outpatient (CLI) | payer MEDICARE, OTHER, SELFPAY ==
--- NOTE | ~2024-09-30 | XR_ITS ---
CHEST RADIOGRAPH, PA AND LATERAL CLINICAL HISTORY: R06.09 - Other forms of dyspnea . COMPARISON: 01/01/2024 TECHNIQUE: PA and lateral views of the chest. FINDINGS The cardiomediastinal silhouette is unremarkable. Stable bibasilar pulmonary nodularity. The lungs are otherwise clear. Visualized osseous structures and soft tissues are unremarkable. IMPRESSION: No focal infiltrate or effusion. Reviewed, dictated and finalized at location A. [facility]
[2024-09-30 09:58] LABS: Basophils Percent Auto 0.5 % (0.2-1.2); Eosinophils Absolute Auto 0.1 K/mm3 (0-0.3); Eosinophils Percent Auto 1.6 % (0-4.4); Hematocrit 41.3 % (37.0-47.0); Hemoglobin 13.6 g/dL (12.0-15.0); Immature Granulocyte Absolute 0.02 K/mm3 (0.00-0.031); Immature Granulocyte Percent A 0.3 % (0-0.5); Lymphocytes Absolute Auto 1.11 K/mm3 (0.9-3.2); Mean Corpuscular HGB Conc 32.9 g/dl (32-36); Mean Corpuscular Hemoglobin 28.9 pg (26-34); Mean Corpuscular Volume 87.7 fl (80-100); Mean Platelet Volume 9.1 fl (7.4-10.4); Monocytes Absolute Auto 0.8 K/mm3 (0.1-0.6); Monocytes Percent Auto 10.1 % (2.6-8.5); Neutrophils Absolute Auto 5.4 K/mm3 (1.3-6.7); Neutrophils Percent Auto 72.5 % (45.5-73.1); Platelet Count Result 374 k/mm3 (150-375); Red Blood Count 4.71 M/mm3 (4.2-5.4); Red Cell Distribution Width 12.4 % (11.5-14.5); White Blood Count 7.4 K/mm3 (4.5-10.0)
[2024-09-30 10:11] LABS: Alanine Aminotransferase 44 U/L (6-35); Albumin Level 4.2 g/dL (3.5-5.1); Alkaline Phosphatase 128 U/L (38-126); Anion Gap 4 mmol/L (4-12); Aspartate Amino Transferase 48 U/L (14-36); Bilirubin,Total 0.8 mg/dL (0.2-1.3); Blood Urea Nitrogen 14 mg/dL (7-17); Calcium 9.6 mg/dL (8.4-10.2); Carbon Dioxide 33 mmol/L (22-30); Chloride 98 mmol/L (98-107); Estimated Glomerular Filt Rate > 60; Glucose 82 mg/dL (65-110); Potassium 3.4 mmol/L (3.4-5.0); Sodium 135 mmol/L (137-145)
== END 2024-09-30 09:08 | disposition home or self-care (01) ==
PROVIDERS: PCP Family Medicine Adolescent Medicine; Visit Provider Nurse Practitioner Family
DX: R53.83 Other fatigue (principal); R06.09 Other forms of dyspnea
CPT/HCPCS: 36415; 71046; 80053; 84443; 85025

== ENCOUNTER 2024-10-11 10:19 | Outpatient (CLI) | payer MEDICARE, OTHER, SELFPAY ==
--- NOTE | ~2024-10-11 | NM_ITS ---
EXAMINATION: NM julia stress w perfusion DATE: 10/11/2024 12:09 INDICATION: Other forms of dyspnea. Dyspnea on exertion. TECHNIQUE: Rest images were obtained following intravenous administration of 9.5 mCi Tc99m tetrofosmi n (Myoview). The patient was infused intravenously with Lexiscan (regadenoson). Then, 30.2 mCi Tc99m tetrofosmin (Myoview) was administered intravenously, and stress images were obtained. Data was recon structed into short axis and horizontal and vertical long axis SPECT images. Gated SPECT images were also obtained. COMPARISON: None. FINDINGS: There is no definite reversible or fixed perfusion abnormality to suggest ischemia or infar ction. There is no segmental wall motion abnormality. Left ventricular ejection fraction measures > 70%. IMPRESSION: 1. No definite ischemia or infarct. 2. Normal left ventricular ejection fraction measuring >70%. Reviewed, dictated and finalized at location A. [facility]
--- NOTE | 2024-10-11 10:23 | EST_ITS ---
Patient Info Name: Daya Nova Age: 79 years : 1945 Gender: Female Ht: 65 in Wt: 160 lbs BSA: 1.84 m2 HR: 91 bpm BP: 169 / 87 mmHg Exam Date: 10/11/2024 11:19 AM Exam Location: Echo Lab Patient Status: Outpatient Admit Date: 10/11/2024 Staff Ordering Physician: Dixie Banks APRN Attending Provider: Dixie Banks APRN Exercise Technologist: Beatriz Sheehan RDCS Exercise Physician: Regan Pardo DO Exam Type: CA stress julia w NM Study Info A regadenoson stress test was performed. Summary 1. 1. Negative lexiscan stress test for ischemic ST changes by ECG criteria. 2. 2. Baseline hypertension. 3. 3. Nuclear scan to follow and will be reported separately. Please correlate with it. 4. 4. Patient informed of the above results. Protocol: Lexiscan Stress ECG Details Stage: REST Duration (min): 1 min : 37 sec HR (bpm): 91 SBP (mmHg): 169 DBP (mmHg): 87 Stage: REST Duration (min): 3 min : 18 sec HR (bpm): 87 SBP (mmHg): 169 DBP (mmHg): 87 Stage: STAGE 1 Duration (min): 1 min : 0 sec HR (bpm): 99 SBP (mmHg): 169 DBP (mmHg): 90 Stage: RECOVERY Duration (min): 1 min : 0 sec HR (bpm): 97 SBP (mmHg): 169 DBP (mmHg): 90 Stage: RECOVERY Duration (min): 2 min : 0 sec HR (bpm): 105 SBP (mmHg): 169 DBP (mmHg): 90 Stage: RECOVERY Duration (min): 3 min : 0 sec HR (bpm): 112 SBP (mmHg): 157 DBP (mmHg): 90 Stage: RECOVERY Duration (min): 4 min : 0 sec HR (bpm): 108 SBP (mmHg): 157 DBP (mmHg): 90 Stage: RECOVERY Duration (min): 5 min : 0 sec HR (bpm): 108 SBP (mmHg): 177 DBP (mmHg): 91 Stage: RECOVERY Duration (min): 6 min : 0 sec HR (bpm): 106 SBP (mmHg): 177 DBP (mmHg): 91 Stage: RECOVERY Duration (min): 7 min : 0 sec HR (bpm): 106 SBP (mmHg): 175 DBP (mmHg): 92 Stage: RECOVERY Duration (min): 7 min : 6 sec HR (bpm): 106 SBP (mmHg): 175 DBP (mmHg): 92 Rest HR: 87 bpm Peak HR: 113 bpm Rest Sys BP: 169 mmHg Peak Sys BP: 177 mmHg Max Pred HR: 139 bpm % Max Pred HR: 81 % Target HR: 118 bpm Max RPP: 20,001 bpm*mmHg Termination Reason: Completed protocol Cardiac Symptoms: Shortness of breath, Nausea Total Time: 1 min : 0 sec Rest Oakley BP: 87 mmHg Peak [place]ley BP: 91 mmHg Total Dose: 0.4 mg Aminophylline Dose: 100 mg Resting ECG Sinus rhythm. Stress ECG No ST changes. Due to intolerable symptoms, 5 minutes after lexiscan injection, Aminophylline 100 mg IV given. Arrhythmias None. Report Signatures
== END 2024-10-11 10:20 | disposition home or self-care (01) ==
PROVIDERS: PCP Family Medicine Adolescent Medicine; Visit Provider Nurse Practitioner Family
DX: R06.09 Other forms of dyspnea (principal); R53.83 Other fatigue
CPT/HCPCS: 78452; 93017; A9502; J0280; J2785

== ENCOUNTER 2024-10-12 13:24 | Emergency (ER) | payer MEDICARE, OTHER, SELFPAY ==
[2024-10-12 13:36] VITALS: BP 150/75; PULSE 91; RESP 16; TEMP 36.2; O2SAT 98
--- NOTE | 2024-10-12 14:25 | ED.GENADULT ---
HPI - General Adult General Chief complaint: Extremity Problem,Nontraumatic Stated complaint: right wrist pain, swelling Time Seen by Provider: 10/12/24 14:25 Source: patient Mode of arrival: ambulatory Limitations: no limitations History of Present Illness HPI narrative: 79 yo F with pain to R hand for 2 days. Started to R thumb and then to top of R hand and wrist. Told nurse yesterday when she went into for stress test that R hand was painful. Put pt's IV there, told her prob arthritis pain. Started having warmth and redness yesterday afternoon. Worse today. Afebrile. hx of cellulitis. All systems reviewed and negative except as noted above. Related Data Home Medications Medication Instructions Recorded Confirmed calcium 600 mg (as 1 tablet PO DAILY 06/17/22 10/12/24 carbonate)-vitamin D3 20 mcg (800 unit) tablet mv-mn-folic 200 mcg-vit K 15 1 cap PO DAILY 11/04/23 10/12/24 mcg-lutein 5 mg-zeaxanthin 1 mg capsule (PreserVision AREDS 2 Plus Multivit) aspirin 81 mg capsule 81 mg PO DAILY 04/13/24 10/12/24 multivitamin 1 tablet PO DAILY 04/13/24 10/12/24 Allergies Allergy/AdvReac Type Severity Reaction Status Date / Time clindamycin Allergy Intermediate Rash Verified 10/12/24 13:38 pentazocine Allergy Unknown Unknown - Verified 10/12/24 13:38 UNABLE TO RECALL Review of Systems Review of Systems: CONSTITUTIONAL: Denies fever, chills, or sweats. EYES: Denies visual changes, redness, or discharge. ENT: Denies rhinorrhea, congestion, sore throat, or otalgia. CARDIOVASCULAR: Denies chest pain, palpitations, or edema. RESPIRATORY: Denies cough or dyspnea. GASTROINTESTINAL: Denies abdominal pain, nausea, vomiting, or diarrhea. GENITOURINARY: Denies dysuria or hematuria. SKIN: Denies rash or itching. Reports redness, swelling and pain to right hand. MUSCULOSKELETAL: Denies back pain, joint pain, or myalgia. NEUROLOGIC: Denies headache, numbness, or weakness. PSYCHIATRIC: Denies anxiety or depression. All other systems reviewed are negative, except as documented in HPI. [facility] Past Medical History Medical History Bladder incontinence Hyperlipidemia Hypertension Left femoral vein DVT Surgical History Surgical History History of bilateral cataract extraction History of hysterectomy with oophorectomy History of laparoscopic cholecystectomy History of lumbar surgery decompression / microdiscectomy/ decompression-microdiscectomy X3 surgeries History of total left hip arthroplasty (08/2023) History of total right hip arthroplasty (2015) Family History Family History Mother Family history of malignant neoplasm of breast in first degree relative, Onset Age: 70 Breast cancer Father Acute myocardial infarction Sibling No problems noted. Other Family history of cardiovascular disease Family history of hearing loss Family history of malignant neoplasm of breast Family history of mental disorder Social History Social History Social History: Surrogate medical decision maker: Toro Nova, spouse. Code status: Full code. Smoking status: Never smoker Second hand tobacco smoke exposure: No Alcohol intake: never Substance use: never Substance use type: does not use Do You Feel Safe in your Home?: Yes Lack of Transportation: No Lack of Food: Never True Current Housing: I Have Housing Concerned About Future Housing: No Difficulty Paying Gas/Electric Bills: No Difficulty Paying for Meds: No Currently Unemployed: No Education: Associate Degree Difficulty w/ Childcare or Family Care: No Living arrangements: with family Additional living arrangements comments: Lives with spouse in [place]. 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 There is no relevant family history pertinent to the presenting complaint. Exam Narrative: GENERAL: This is a well-nourished, well-developed patient, in no apparent distress. HEAD: normocephalic, atraumatic. EYES: PERRL. Sclera clear/white. Vision is grossly intact. EARS: External ears normal NOSE: External nose normal NECK: Neck supple, non-tender without lymphadenopathy, masses or thyromegaly. CARDIOVASCULAR: Regular rate and rhythm without murmurs, gallops, or rubs. RESPIRATORY: Clear to auscultation. Breath sounds equal bilaterally. No wheezes, rales, or rhonchi. SKIN: warm, Dry, intact with no suspicious lesions or rash, good texture and turgor. NEURO: awake, alert, and oriented to person, place and time. There were no obvious focal neurologic abnormalities. EXTREMITIES: erythema to dorsal aspect R hand approx. 9x 5cm diameter. swelling, warmth. tender on palpation. no fluctuance. Course Course Level of Care: Express Care Visit Vital Signs Vital signs: Vital Signs Temperature 36.2 C L 10/12/24 13:36 Pulse Rate 91 10/12/24 13:36 Respiratory Rate 16 10/12/24 13:36 Blood Pressure 150/75 H 10/12/24 13:36 Pulse Oximetry 98 10/12/24 13:36 Oxygen Delivery Room Air 10/12/24 13:36 Temperature 36.2 C L 10/12/24 13:36 Pulse Rate 91 10/12/24 13:36 Respiratory Rate 16 10/12/24 13:36 Blood Pressure 150/75 H 10/12/24 13:36 Pulse Oximetry 98 10/12/24 13:36 Oxygen Delivery Room Air 10/12/24 13:36 Reviewed Medical Decision Making MDM Narrative Medical decision making narrative: Patient is aware of diagnosis, understands and agrees to treatment plan. Anticipatory guidance given. Patient agrees to follow-up as directed and is aware of reasons to seek care at the emergency department. Portions of this record may have been created with voice recognition software will treat pt for cellulitis. less likely to be phlebitis due to pain starting prior to IV being place. Pt has decreased ROM at baseline due to arthritis. Distal NV intact. Vital Signs Vital Signs: Vital Signs Temperature 36.2 C L 10/12/24 13:36 Pulse Rate 91 10/12/24 13:36 Respiratory Rate 16 10/12/24 13:36 Blood Pressure 150/75 H 10/12/24 13:36 Pulse Oximetry 98 10/12/24 13:36 Oxygen Delivery Room Air 10/12/24 13:36 Temperature 36.2 C L 10/12/24 13:36 Pulse Rate 91 10/12/24 13:36 Respiratory Rate 16 10/12/24 13:36 Blood Pressure 150/75 H 10/12/24 13:36 Pulse Oximetry 98 10/12/24 13:36 Oxygen Delivery Room Air 10/12/24 13:36 Discharge Plan Discharge Clinical Impression: Cellulitis of hand, right Patient Disposition: Home, Self-Care Condition: Stable Instructions: Antibiotic Form, Cellulitis (ED) Additional Instructions: Take antibiotic as prescribed until gone. Take Tylenol every 6-8 hours as needed for pain. See your primary care physician if symptoms are not improving. For any worsening of your symptoms go to the ER. Prescriptions: New cephalexin 500 mg capsule 500 mg PO QID 7 Days Qty: 28 0RF No Action aspirin 81 mg capsule 81 mg PO DAILY multivitamin Tablet 1 tablet PO DAILY PreserVision AREDS 2 Plus MV 200 mcg-15 mcg- 5 mg-1 mg capsule 1 cap PO DAILY calcium carbonate-vitamin D3 600 mg-20 mcg (800 unit) tablet 1 tablet PO DAILY metoprolol succinate 25 mg tablet extended release 24 hr 25 mg PO DAILY Qty: 90 2RF Patient Comments: TAKES @ NOC rosuvastatin 10 mg tablet 5 mg PO DAILY Qty: 45 2RF bupropion HCl 150 mg tablet extended release 24 hr 150 mg PO QAM Qty: 30 2RF valsartan-hydrochlorothiazide 320-25 mg tablet 1 tablet PO DAILY Qty: 90 0RF amlodipine 5 mg tablet 5 mg PO DAILY Qty: 90 0RF Follow-up/Referrals: Alejandro Yap MD [Primary Care Provider] - Time of Disposition: 14:33
== END 2024-10-12 14:35 | disposition home or self-care (01) ==
PROVIDERS: Emergency Provider Nurse Practitioner Family; PCP Family Medicine Adolescent Medicine
DX: L03.113 Cellulitis of right upper limb (principal); Z79.82 Long term (current) use of aspirin; E78.5 Hyperlipidemia, unspecified; I10 Essential (primary) hypertension; Z86.718 Personal history of other venous thrombosis and embolism
CPT/HCPCS: 99213; G0463

== ENCOUNTER 2024-12-24 11:16 | Emergency (ER) | payer MEDICARE, OTHER, SELFPAY ==
[2024-12-24 11:25] VITALS: BP 110/80; PULSE 74; RESP 18; TEMP 36.7; O2SAT 99
--- NOTE | 2024-12-24 11:44 | ED.URI ---
HPI - URI/Sore Throat General Chief Complaint: Upper Respiratory Infection Stated Complaint: Cough/Congestion Time Seen by Provider: 12/24/24 11:44 Source: patient, RN notes reviewed and old records reviewed Mode of arrival: ambulatory Limitations: no limitations History of Present Illness HPI Narrative: 79-year-old female presents to the [facility] with 8 days of a loose cough, congestion, headaches. Has taken udte-zvu-lenyfef prep medications with minimal relief. Reports generalized fatigue, decreased appetite. Denies any chest pain, shortness of breath. Denies fevers. Onset (ago): day(s) (8) Treatments prior to arrival: cold medicine Related Data Home Medications ?Medication ?Instructions ?Recorded ?Confirmed ?Last Taken ?Type calcium 600 mg (as 1 tablet PO DAILY 06/17/22 10/12/24 09/06/23 History carbonate)-vitamin D3 20 mcg (800 unit) tablet mv-mn-folic 200 mcg-vit K 15 1 cap PO DAILY 11/04/23 10/12/24 Unknown History mcg-lutein 5 mg-zeaxanthin 1 mg capsule (PreserVision AREDS 2 Plus Multivit) aspirin 81 mg capsule 81 mg PO DAILY 04/13/24 10/12/24 Unknown History multivitamin 1 tablet PO DAILY 04/13/24 10/12/24 Unknown History Allergies Allergy/AdvReac Type Severity Reaction Status Date / Time clindamycin Allergy Intermediate Rash Verified 12/24/24 11:31 pentazocine Allergy Unknown Unknown - Verified 12/24/24 11:31 UNABLE TO RECALL Review of Systems Review of Systems: All systems reviewed & are unremarkable except as noted in HPI and below Constitutional: Constitutional: Reports no additional constitutional complaints ENT: Reports as per HPI and Reports nasal congestion Cardiovascular: Cardiovascular: Reports no additional cardiovascular complaints, Denies chest pain and Denies dyspnea Respiratory: Respiratory: Reports as per HPI, Denies chest congestion, Reports cough and Denies dyspnea Musculoskeletal: Musculoskeletal: Reports no additional musculoskeletal complaints Integumentary/Breasts: Skin/Breast: Reports system reviewed and no additional complaints, except as docu PMFSH Past Medical History Medical History Left femoral vein DVT Hyperlipidemia Hypertension Bladder incontinence Surgical History Surgical History History of bilateral cataract extraction History of total left hip arthroplasty (08/2023) History of total right hip arthroplasty (2016) History of lumbar surgery decompression / microdiscectomy/ decompression-microdiscectomy X3 surgeries History of laparoscopic cholecystectomy History of hysterectomy with oophorectomy Family History Family History Mother Family history of malignant neoplasm of breast in first degree relative, Onset Age: 70 Breast cancer Father Acute myocardial infarction Sibling No problems noted. Other Family history of cardiovascular disease Family history of hearing loss Family history of malignant neoplasm of breast Family history of mental disorder Social History Social History Social History: Surrogate medical decision maker: Toro Nova, spouse. Code status: Full code. Smoking status: Never smoker Second hand tobacco smoke exposure: No Alcohol intake: never Substance use: never Substance use type: does not use Do You Feel Safe in your Home?: Yes Lack of Transportation: No Lack of Food: Never True Current Housing: I Have Housing Concerned About Future Housing: No Difficulty Paying Gas/Electric Bills: No Difficulty Paying for Meds: No Currently Unemployed: No Education: Associate Degree Difficulty w/ Childcare or Family Care: No Living arrangements: with family Additional living arrangements comments: Lives with spouse in [place]. Occupation/Education: retired Additional occupation/education comments: Retired registered [employer] Gender identity (if verbalized by the patient): Female Spiritual care concerns: No Agree to blood products: Yes Comments At the time of my signature, I reviewed and agree with the nursing past medical, surgical, social, and family history. There is no relevant family history pertinent to the patient complaint. Exam Const: General: cooperative, healthy appearing, comfortable, no acute distress, well developed, alert and well nourished Nutritional Appearance: well nourished Orientation/consciousness: patient oriented x3 Limitations: no limitations HENMT: Head: normal to inspection Ears: hearing grossly normal bilaterally, external ears normal, TM's normal bilaterally, EAC's normal, mastoids normal and no periauricular adenopathy Mouth: Yes Normal oral and palatal mucosa present, Yes lip normal, Yes tongue normal and Yes moist mucous membranes Throat: posterior oropharynx normal, uvula midline, postnasal drainage and no uvular edema Eyes: General: appearance normal, both eyes and all related structures Alignment and Position: alignment normal Neck: Neck: normal visual inspection, full ROM, no lymphadenopathy and no meningeal signs Chest: Chest palpation & inspection: normal inspection of the chest Resp: Effort & Inspection: normal respiratory effort and able to speak in complete sentences Auscultation: clear to auscultation bilaterally, no crackles, no rales, no rhonchi and no wheezes Cardio: Rate: regular rate GI: GI Palp: No abdominal tenderness Skin: General skin exam: normal color and no rashes or lesions noted Neuro: General: patient oriented x3, gait normal, moves all extremities and no meningeal signs Cognition (Neuro): normal cognition Speech: normal speech Gait exam (Neuro): Normal gait present Extrem: General: normal to inspection, full ROM, capillary refill normal and normal gait Psych: Appearance: grossly normal and well kempt Mental Status: mental status grossly normal Speech and movement: Normal speech and movement present and Clear speech present Affect: normal affect Attitude: cooperative Course Course Level of Care: Express Care Visit Vital Signs Vital signs: Vital Signs Temperature 98.0 F 12/24/24 11:25 Pulse Rate 74 12/24/24 11:25 Respiratory Rate 18 12/24/24 11:25 Blood Pressure 110/80 12/24/24 11:25 Pulse Oximetry 99 12/24/24 11:25 Oxygen Delivery Room Air 12/24/24 11:25 Temperature 98.0 F 12/24/24 11:25 Pulse Rate 74 12/24/24 11:25 Respiratory Rate 18 12/24/24 11:25 Blood Pressure 110/80 12/24/24 11:25 Pulse Oximetry 99 12/24/24 11:25 Oxygen Delivery Room Air 12/24/24 11:25 Reviewed MDM - URI/Sore Throat MDM Narrative Medical decision making narrative: Patient sitting in exam room. Nontoxic, vitals are stable. Patient in no acute distress. Patient presents with 8 days of cough, congestion. Also reports generalized fatigue and decreased appetite. Patient appropriate for outpatient treatment with sinusitis, bronchitis with close follow-up. Patient signs and symptoms were consistent with influenza a week ago, patient probably recovering with still having residual symptoms. Treatment appropriate with antibiotics. Discussed in detail signs and symptoms for follow-up as well as proceeding to the emergency room for further evaluation. Discharge instructions reviewed with patient, as well as provided in writing per nursing staff. The instructions also include specific and strict return/GO TO THE ER as well as f/u information. All questions have been answered, and the patient deny any further questions with discharge and discharge plan. Some parts of this dictation were generated by voice recognition software and may contain typographical and/or grammatical inaccuracies. Differential Diagnosis Differential diagnosis: Likely upper respiratory infection, otitis media, sinusitis, viral infection, bronchitis and influenza Critical Care Time Critical Care Time Critical Care Time: No Discharge Plan Discharge Clinical Impression: Bronchitis Patient Disposition: Home, Self-Care Condition: Stable Instructions: Antibiotic Form, Acute Bronchitis (ED) Additional Instructions: It is very important to treat your symptoms. Drink plenty of water, Gatorade, Pedialyte, ice pops or Jell-O. -Alternate Tylenol and Motrin per package directions for fever or pain. You can alternate every 4 hours -Antihistamine medication such as Zyrtec/Claritin/Bianca during the day can help improve symptoms. -doing daily nasal irrigations can help relieve pressure your sinuses. Things like a Neti pot -Use Flonase twice a day for 5 days then daily to help reduce the inflammation and dry up your sinuses. -You can also use Mucinex. Be sure to drink plenty of water with this medication at least 8 ounces with every dose and it is important to drink 8 to 10 glasses of water per day. Water is a natural decongestant -Eat and drink things that are easy to swallow, like tea or soup, or popsicles. -Oral rinses such as: Salt water gargles and/or may use topical anesthetic (eg. Chloraseptic spray) or lozenges to relieve dryness or throat pain). -Frequent hand washing or hand fashion director party plan sales is one of the best ways to prevent spread of infection. -Using a vaporizer or humidifier at night will also help thin secretions and help with coughing up phlegm. -Follow up with primary care provider in 7-10 days if condition is not improving - For new or worsening symptoms go directly to the nearest ER Patient Language: Latvian Prescriptions: New doxycycline monohydrate 100 mg tablet 100 mg PO BID Qty: 14 0RF No Action aspirin 81 mg capsule 81 mg PO DAILY multivitamin Tablet 1 tablet PO DAILY PreserVision AREDS 2 Plus MV 200 mcg-15 mcg- 5 mg-1 mg capsule 1 cap PO DAILY calcium carbonate-vitamin D3 600 mg-20 mcg (800 unit) tablet 1 tablet PO DAILY rosuvastatin 10 mg tablet 5 mg PO DAILY Qty: 45 2RF bupropion HCl 150 mg tablet extended release 24 hr 150 mg PO QAM Qty: 30 2RF valsartan-hydrochlorothiazide 320-25 mg tablet 1 tablet PO DAILY Qty: 90 0RF amlodipine 5 mg tablet 5 mg PO DAILY Qty: 90 0RF metoprolol succinate 25 mg tablet extended release 24 hr See Rx Instructions .ROUTE .COMPLEX Qty: 90 0RF Dose Instruction: Take 1 tablet by mouth once daily Rx Instructions: Take 1 tablet by mouth once daily Follow-up/Referrals: Alejandro Yap MD [Primary Care Provider] - 1 Week ([facility] care follow up ) Stand Alone Forms: Work/School Release IP Time of Disposition: 11:57
== END 2024-12-24 12:05 | disposition home or self-care (01) ==
PROVIDERS: Emergency Provider Nurse Practitioner; PCP Family Medicine Adolescent Medicine
DX: J40 Bronchitis, not specified as acute or chronic (principal); I10 Essential (primary) hypertension; E78.5 Hyperlipidemia, unspecified; Z86.718 Personal history of other venous thrombosis and embolism; Z98.42 Cataract extraction status, left eye; Z98.41 Cataract extraction status, right eye; Z96.643 Presence of artificial hip joint, bilateral
CPT/HCPCS: 99213; G0463

== ENCOUNTER 2025-01-11 14:12 | Outpatient (CLI) | payer MEDICARE, OTHER, SELFPAY ==
--- NOTE | ~2025-01-11 | XR_ITS ---
XR chest 2V Ordering provider: Dixie Banks APRN History: 79 years Female with . R06.00 - Dyspnea, unspecified . Comparison: September 30, 2024 FINDINGS: MEDIASTINUM: The cardiac silhouette is not enlarged. LUNGS: No infiltrates, effusions or pneumothorax. OTHER: No free air under the diaphragm. Degenerative changes of the spine. IMPRESSION: No acute cardiopulmonary pathology. Reviewed, dictated and finalized at location A. [facility]
[2025-01-11 14:33] LABS: Basophils Percent Auto 0.5 % (0.2-1.2); Eosinophils Absolute Auto 0.2 K/mm3 (0-0.3); Eosinophils Percent Auto 2.6 % (0-4.4); Hematocrit 36.9 % (37.0-47.0); Hemoglobin 12.4 g/dL (12.0-15.0); Immature Granulocyte Absolute 0.03 K/mm3 (0.00-0.031); Immature Granulocyte Percent A 0.4 % (0-0.5); Lymphocytes Absolute Auto 1.36 K/mm3 (0.9-3.2); Lymphocytes Percent Auto 17.7 % (18.3-44.2); Mean Corpuscular HGB Conc 33.6 g/dl (32-36); Mean Corpuscular Hemoglobin 28.8 pg (26-34); Mean Corpuscular Volume 85.6 fl (80-100); Mean Platelet Volume 8.2 fl (7.4-10.4); Monocytes Absolute Auto 0.9 K/mm3 (0.1-0.6); Neutrophils Absolute Auto 5.1 K/mm3 (1.3-6.7); Neutrophils Percent Auto 66.8 % (45.5-73.1); Platelet Count Result 404 k/mm3 (150-375); Red Blood Count 4.31 M/mm3 (4.2-5.4); Red Cell Distribution Width 12.9 % (11.5-14.5); White Blood Count 7.7 K/mm3 (4.5-10.0)
[2025-01-11 15:26] LABS: Alanine Aminotransferase 40 U/L (6-35); Albumin Level 4.1 g/dL (3.5-5.1); Alkaline Phosphatase 121 U/L (38-126); Anion Gap 12 mmol/L (4-12); Aspartate Amino Transferase 39 U/L (14-36); Bilirubin,Total 0.4 mg/dL (0.2-1.3); Blood Urea Nitrogen 25 mg/dL (7-17); Calcium 9.9 mg/dL (8.4-10.2); Carbon Dioxide 26 mmol/L (22-30); Chloride 96 mmol/L (98-107); Estimated Glomerular Filt Rate > 60; Glucose 96 mg/dL (65-110); Potassium 3.8 mmol/L (3.4-5.0); Sodium 134 mmol/L (137-145)
--- OUTSIDE RECORDS SUMMARY | 2025-01-11 15:52 | XMS_ITS | Clinical Summary ---
Author Organization [employer] [id number] [facility] Address [address] [place] [address] Care Team Providers Care Svp Programmatic Tv Name Role Phone Alejandro Yap MD Primary Care Provider [phone] Allergies No known active allergies Medications metoprolol succinate (TOPROL XL) 25 mg Extended Release 24 hour tablet Take 25 mg by mouth daily. 9 Active rosuvastatin (CRESTOR) 5 mg tablet Take 5 mg by mouth daily at bedtime. Active valsartan-hydroCHL OROthiazide (DIOVAN HCT) 80-12.5 mg tablet Take 1 Tablet by mouth daily. 0 9 Active vit C/E/Zn/coppr/lutei n/zeaxan (PRESERVISION AREDS-2 ORAL) Take 1 Tablet by mouth 2 times daily. Active calcium carbonate + vitamin D (CALTRATE+D) 600 mg(1,500mg) -400 unit Tablet Take 1 Tablet by mouth 2 times daily with meals. Active OTHER Take 1 Tablet by mouth daily. Calcium with Vitamin D3 600 mg / 800 IU 1 talbet twice daily Active OTHER Take 1 Tablet by mouth daily. MVI with lutein and lycopene Active aspirin (JEANINE CHEWABLE) 81 mg Tablet, Chewable Take 81 mg by mouth daily. Active mirabegron (Myrbetriq) 50 mg Extended Release 24 hour tablet Take 50 mg by mouth daily at bedtime. Active docusate sodium (Stool Softener) 100 mg capsule Take 100 mg by mouth 2 times daily. Active gabapentin (Neurontin) 300 mg capsule Take 1 Capsule (300 mg) by mouth 3 times daily. 60 Capsule 0 Active tiZANidine (ZANAFLEX) 2 mg Tablet Take 1 Tablet (2 mg) by mouth every 8 hours as needed for Spasm. 30 Tablet 0 Active HYDROcodone-acetam inophen (NORCO) 5-325 mg tabletIndications: Lumbosacral spondylosis with radiculopathy Take 1 Tablet by mouth every 4 hours as needed for moderate pain. Max Daily Amount: 6 Tablets 30 Tablet 0 Active Active Problems Problem Noted Date Diagnosed Date Postlaminectomy syndrome, lumbar region 01/03/20 20 Lumbosacral spondylosis with radiculopathy 01/03 Other spondylosis with radiculopathy, lumbar reg ion 11/17/2019 Immunizations Immunization Administration Dates Next Due Influenza Seasonal Unspecified Formulation IM Family History Medical History Relation Name Comments No Known Problems Brother Heart Disease Father Breast Cancer Mother Other Mother macular degener ation No Known Problems Sister Relation Name Status Comments Brother Alive Father Mother Sister Alive Social History Tobacco Use Types Packs/Day Years Used Date Smoking Tobacco: Never Smokeless Tobacco: Never Alcohol Use Standard Drinks/Week Comments Never 0 (1 standard drink = 0.6 oz pur e alcohol) Comments No Sex and Gender Information Value Date Recorded Sex Assigned at Not on file Legal Sex Female 11:10 AM CDT Gender Identity Not on file Sexual Orientation Not on file Occupation Industry Job Start Date Job End Date Registered nurse Not on file Not on file Not on file Last Filed Vital Signs Vital Sign Reading Time Taken Comments Blood Pressure 120/70 12/07/2019 11:30 AM COMMODITY INDUSTRY ANALYST Pulse 82 12/07/2019 11:30 AM COMMODITY INDUSTRY ANALYST Temperature 36.7 C (98 F) 12/07/2019 10:15 AM COMMODITY INDUSTRY ANALYST Respiratory Rate 17 12/07/2019 11:3 0 AM COMMODITY INDUSTRY ANALYST Oxygen Saturation 94% 12/07/2019 11: 30 AM COMMODITY INDUSTRY ANALYST Inhaled Oxygen Concentration - - Weight 65.2 kg (143 lb 12.8 oz) 12/07/2019 5:49 AM COMMODITY INDUSTRY ANALYST Height 165.1 cm (5' 5 ) 12/07/2019 5:49 AM COMMODITY INDUSTRY ANALYST Body Mass Index 23.93 12/07/2019 5:49 AM COMMODITY INDUSTRY ANALYST Plan of Treatment Health Maintenance Due Date Last Done Comments DTAP/TDAP/TD VACCINES (1 - Tdap) 1962 PNEUMOCOCCAL VACCINE 50+ YEARS (1 of 1 - PCV) 07/01/19 93 ZOSTER VACCINE (1 of 2) 1993 OSTEOPOROSIS SCREENING 2008 RSV VACCINE (60+ or ) (1 - 1-dose 75+ series) 2018 INFLUENZA VACCINE (#1) 2024 08/29/2019 Medical Devices Implanted Type Area Timber Watchman Device Identifier Shelf Expiration Date Model / Serial / Lot Hemostatic Surgiflo 8ml W/Thrombin 2994 - [id number] Implanted:Qty: 1 on 12/07/2019 by Wes Swain MD at [facility] [employer] [id number] / / Description:trans from suppl [place] [address] [address] [place] [address] RX [employer] RX Member Subscriber Plan / Payer (Ef fective 2008-Present) Name:Daya Nova Relation to Subscriber:Self Name:Daya Nova Payer ID:Not on file Group ID:[id number] Type:RX Medicare Part D Address: [address] Guarantor: Daya Nova Account Type Relation to Patient Date of Phone Billing Address Personal/Family Self 1945 [address] [place] [address] Advance Directives For more information, please contact: [phone] Documents on File Type Date Recorded Patient License Clerk Expl anation Advance Directive POA 12/07/2019 7:04 AM A dvance Directive POA Advance Directive Living Will 12/07/2019 7:03 AM Advance Directive Living Will Care Teams Svp Programmatic Tv Relationship Specialty Start Date End Date Alejandro Yap MD [address] [facility] [address] [place] [address] PCP - General Family Practice 08/10/19
--- OUTSIDE RECORDS SUMMARY | 2025-01-11 15:52 | XMS_ITS | Referral Summary ---
Author Organization [facility] Address [address] [place] [address] Care Team Providers Care Bacteriology Technician Name Role Phone Kirill Schultz MD Primary Care Provider [phone] Jerrica Mueller RN Unavailable Source Comments [facility],non-owned Affiliates and Associated Physician Practices is amultiple site organization consisting of ambulatory clinics and hospital sitesin [place], [place], [place] and [place]. This disclosure is being madepursuant to the Care Everywhere program and may not contain all information available regarding this patient. Last updated 18.[facility] Allergies No known active allergies Medications * Be aware that medications may not be up to date on this document. Alwaysverify current medications with the patient. Medication Sig Dispensed Refills Start Date End Date Status losartan - hydrochlorothiazide (HYZAAR) 50-12.5 MG tablet Take 1 Tab by mouth once daily. Active aspirin 81 MG tablet once daily. Act jaycee Calcium Carbonate (CALTRATE 600 PO) 2 times daily. Act jaycee fish oil/omega-3 fatty acids (FISH OIL) 1000 MG capsule Take 1,000 mg by mouth daily with food. Active Multiple Vitamin (MULTI-VITAMIN PO) Take 1 Cap by mouth once daily. Active naproxen sodium (ALEVE) 220 MG tablet Take 220 mg by mouth 2 times daily. Active hydrocodone-acetaminophen (NORCO) 5-325 MG tablet 1-2 q 4-6 hrs prn pain 40 Tab 1 02/09/2014 Active Additional Information Patient not taking.Reported on 04/30/2016 rosuvastatin (CRESTOR) 5 MG tablet Take 5 mg by mouth once daily Active diclofenac sodium EC (VOLTAREN) 75 MG tablet Take 1 Tab by mouth 2 times daily 60 Tab 5 05/02/2015 Active metoprolol succinate XL 24hr (TOPROL XL) 25 MG tablet 04/10/2016 Active CRESTOR 10 MG tablet Take 12.5 mg by mouth once daily 04/10/2016 Active Active Problems Problem Noted Date Diagnosed Date Displacement of lumbar inter vertebral disc without myelopathy 02/07/2014 Follow-up examination, following other surgery 0 11/28/2013 Spinal stenosis, lumbar abran on, with neurogenic claudication 11/15/2013 Immunizations Name Administration Dates Next Due INFLUENZA VACCINE 11/18/2013 Social History Tobacco Use Types Packs/Day Years Used Date Smoking Tobacco: Never Smokeless Tobacco: Never Alcohol Use Standard Drinks/Week Comments No 0 (1 standard drink = 0.6 oz pur e alcohol) Sex and Gender Information Value Date Recorded Sex Assigned at Not on file Gender Identity Not on file Sexual Orientation Not on file Last Filed Vital Signs Vital Sign Reading Time Taken Comments Blood Pressure 136/82 02/02/2014 8:06 AM CDT Pulse 105 02/02/2014 8:06 AM CDT Temperature 36.6 C (97.8 F) 02/02/2014 8:06 AM CDT Respiratory Rate 16 02/02/2014 8:16 AM CDT Oxygen Saturation 97% 02/02/2014 8:06 AM CDT Inhaled Oxygen Concentration 94% 11/17/2013 1 1:14 AM CHICKEN SEXER Weight 78 kg (172 lb) 04/30/2016 2:17 PM CDT Height 165.1 cm (5' 5 ) 04/30/2016 2:17 PM CDT Body Mass Index 28.62 04/30/2016 2:17 PM CDT Functional Status Functional Status Response Date of Assess ment Is person deaf or have serious hearing difficult y? No 02/01/2014 Is person blind or have serious difficulty seein g? No 02/01/2014 Does person have serious dif ficulty walking/climbing stairs? No 02/01/2014 Does person have difficulty dressing/bathing? No 02/01/2014 Does person have difficulty doing errands alone? No 02/01/2014 Cognitive Status Response Date of Assessm ent Does person have difficulty concentrating/remembering/making decisions? No 02/01/2014 Plan of Treatment Not on file Medical Devices Implanted Type Area Package Line Relief Operator Device Identifier Shelf Expiration Date Model / Serial / Lot Wax Bone [facility]planted:[facility] [id number] / / Wax Bone Implanted:Qty: 1 on 02/01/2014 at [facility] [employer] [id number] / / Gelfoam Plus Implanted:Qty: 1 on 02/01/2014 by Igor Ladd MD at [facility] Back [employer] 08/09/2015 [id number] / / [id number] Advance Directives * Full Code (Latest Code Status on File) Date Activated Date Inactivated Comments 02/01/2014 2:11 PM 02/02/2014 3:20 PM * FULL RESUSCITATION Date Activated Date Inactivated Comments 11/17/2013 5:55 PM 11/18/2013 2:58 PM Care Teams Bacteriology Technician Relationship Specialty Start Date End Date Kirill Schultz MD [address] [place] [address] PCP - General Internal Medicine 11/17/13 Jerrica Mueller, RN Personnel Arbitrator 02/02/14
--- OUTSIDE RECORDS SUMMARY | 2025-01-11 15:52 | XMS_ITS | Continuity of Care Document ---
Author Organization [facility] Address [address] [place] [address] [address] [place] [address] Phone Care Team Providers Care Manager Of Procurement Name Role Phone Bolton OD, Chetan Unavailable Unavailable Procedures Procedure Date Cntct Lens Hydrophilic Toric Or Prism Ba llast [facility] Contact Lens Hydrophilic, Spherical [facility] Eye Exam & Treatment No Script Refraction CL Replacement - Vistakon Disp W/BW Soft [facility] CL Replacement - Vistakon Disp W/BW Soft [facility] No Charge Contact Lens Check Eye Exam & Treatment Refraction CL Replacement - Vistakon Disp W/BW Soft [facility] CL Replacement - Vistakon Disp W/BW Soft [facility] Eye Exam & Treatment Refraction CL Replacement - Vistakon Disp W/BW Soft [facility] Advance Directives Directive Yes / No Effective Date File Name No Information Encounters Encounter Description Practice Location Reason(s) For Visit Diagnoses Date Provider Providers Copied on Encounter [facility], [address] [place] [address] [address], [place], [place], [id number], [place] tel:[phone] [facility] No Information 9-201 0 Bolton OD Chetan. [address] , [address], [place], [address], [place]. tel:[phone] [facility], [address], [place], [place], [id number], [place] tel:[phone] [facility] No Information Cliff-0 5-201 0 Bolton OD Chetan. [address] , [address], [place], [place], [facility], . tel:[phone] [facility], [address] [place] [address] [address], [place], [place], [id number], [place] tel:[phone] [facility] No Information Nov-0 5-200 9 Bolton OD Chetan. [address] , [address], [place], [place], [facility], . tel:[phone] [facility], [address] [place] [address] [address], [place], [place], [id number], [place] tel:[phone] [facility] No Information Rylan-1 0-200 9 Bolton OD Chetan. [address] , [address], [place], [place], [facility], . tel:[phone] [facility], [address] [place] [address] [address], [place], [place], [id number], [place] tel:[phone] [facility] No Information Nov-0 5-200 8 Bolton OD Chetan. [address] , [address], [place], [place], [facility], [place]. tel:[phone] [facility], [address], [place], [place], [id number], [place] tel:[phone] [facility] No Information Oct-2 3-200 8 Bolton OD Chetan. [address] , [address], [place], [place], [facility], . tel:[phone] [facility], [address], [place], [place], [id number], [place] tel:[phone] [facility] No Information Oct-0 2-200 8 Bolton OD Chetan. [facility] , [address], [place], [place], [facility], . tel:[phone] [facility], [address] [place] [address] [address], [place], [place], [id number], tel:[phone] [facility] No Information Apr-0 4-200 8 Bolton OD Chetan. [address] [facility] , [address], [place], [place], [facility], [place]. tel:[phone] [facility], [address] [place] [address] [address], [place], [place], [id number], tel:[phone] [facility] No Information Oct-1 5-200 7 Bolton OD Chetan. [facility] , [address], [place], [facility], . tel:[phone] [facility], [address] [place] [address] [address], [place], [place], [id number], tel:[phone] [facility] No Information Sep-2 7-200 7 Bolton OD Chetan. [facility] , [address], [place], [facility], . tel:[phone] [facility], [address] [place] [address] [address], [place], [place], [id number], tel:[phone] [facility] No Information May-0 2-200 7 Bolton OD Chetan. [facility] , [address], [place], [place], [facility], . tel:[phone] Family History Family Member Type Diagnosis Age At Onset No Information Payers Payer name Insurance type Covered democrat ID Authoriza tion(s) No Information Social History Type Description Quantity Date Captured Comments Sex Female Smoking Status No Information Chief Complaint And Reason For Visit No Information Reason For Referral Reason For Referral No Information History Of Present Illness Encounter Date Complaint History Of Prese nt Illness No Information Functional Status Date Functional Assessmen t No Information Instructions Date Instruction Additional Infor mation No Information Assessments Type Assessment Date No Information Patient Care Teams Name Effective Dates (start - stop) Status Members No Information
--- OUTSIDE RECORDS SUMMARY | 2025-01-11 15:52 | XMS_ITS | Clinical Summary ---
Author Organization [facility] Address [address] [place] [address] Care Team Providers Care Mussel Opener Name Role Phone Alejandro Yap MD Primary Care Prov ider Carmelo Gant Unavailable [phone] Brandan Lim MD Unavailable [phone] Allergies No known active allergies Medications valsartan-hydro CHLOROthiazide (DIOVAN-HCT) 80-12.5 mg per tablet Take 1 tablet by mouth daily 11/22/2021 Active rosuvastatin (CRESTOR) 10 mg tablet Take 0.5 tablets (5 mg total) by mouth daily 12/31/2021 Active Myrbetriq 50 mg tablet extended release 24 hr Take 1 tablet (50 mg total) by mouth daily 11/21/2021 Active metoprolol XL (TOPROL-XL) 25 mg extended release tablet Take 1 tablet (25 mg total) by mouth daily 11/21/2021 Active vit C/E/Zn/coppr/nona tein/zeaxan (PRESERVISION AREDS-2 ORAL) Take 1 capsule by mouth 2 (two) times a day Active calcium carbonate-vitam in D3 1,250 mg (500 mg elemental)-125 unit per tablet Take 1 tablet by mouth 2 (two) times a day Active multivitamin tabletIndicatio ns:Vitamin Deficiency Prevention Take 1 tablet by mouth Active aspirin 81 mg enteric coated tablet Take 1 tablet (81 mg total) by mouth daily Active Active Problems Problem Noted Date Diagnosed Date Lumbosacral spondylosis with radiculopathy 01/03 Postlaminectomy syndrome, lumbar region 01/03/20 20 Other spondylosis with radiculopathy, lumbar reg ion 11/17/2019 Displacement of lumbar inter vertebral disc without myelopathy 02/07/2014 Immunizations Immunization Administration Dates Next Due Influenza, Trivalent, IM (MDV) 08/29/2019 Influenza, Unspecified 11/18/2013 Surgical History Surgery Date Site/Laterality Comments POSTERIOR LAMINECTOMY / DECO MPRESSION LUMBAR SPINE MICRODISCECTOMY LUMBAR POSTERIOR LAMINECTOMY / DECO MPRESSION LUMBAR SPINE 11/09/2019 - 11/08/2020 TONSILLECTOMY 11/09/1949 - 11/08/1950 CHOLECYSTECTOMY 11/09/1995 - 11/08/1996 HYSTERECTOMY 11/09/2003 - 11/08/2004 TOTAL HIP ARTHROPLASTY 11/09/2015 - 11/08/2016 Right Medical History Medical History Date Comments Hypertension Hyperlipemia Postlaminectomy syndrome, lumbar region Other spondylosis with radiculopathy, lumbar reg ion Family History Medical History Relation Name Comments Diabetes Mother Heart attack Mother Hypertension Mother Relation Name Status Comments Mother Social History Tobacco Use Types Packs/Day Years Used Date Smoking Tobacco: Never Smokeless Tobacco: Never Tobacco Cessation:Counseling Given: No AUDIT-C Answer Date Recorded Q1: How often do you have a drink containing alc ohol? 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 Gender Identity Not on file Sexual Orientation Not on file Occupation Industry Job Start Date Job End Date Retired Not on file Not on file Not on file Obstetrics History Last Filed Vital Signs Vital Sign Reading Time Taken Comments Blood Pressure 157/88 02/13/2023 10:03 AM CDT Pulse 79 02/13/2023 10:03 AM CDT Temperature - - Respiratory Rate 16 12/09/2022 10:14 AM VOLCANOLOGY TEACHER Oxygen Saturation 99% 12/09/2022 10:14 AM VOLCANOLOGY TEACHER Inhaled Oxygen Concentration - - Weight 72.7 kg (160 lb 6 oz) 02/13/2023 10:03 AM CDT Height 165.1 cm (5' 5 ) 02/13/2023 10:03 AM CDT Body Mass Index 26.69 02/13/2023 10:03 AM CDT Plan of Treatment Health Maintenance Due Date Last Done Comments Depression Screening 1945 Fall Risk Assessment 1945 Osteoporosis Screening-Bone Density Scan 1943 Hepatitis B Screening 1961 Pneumococcal vaccine 65+ (1 of 1 - PCV) 1993 Well Visit 65+ 2008 Zoster Vaccine (2 of 3) 11/07/2013 09/12/2013 Covid-19 Vaccine (5 - 2023-2 5 season) 2024 05/19/2022, 09/22/2021, 01/30/2021, Additional history exists Influenza Vaccine (#1) 2024 , 08/29/2019, 11/18/2013 DTaP/Tdap/Td Vaccine (2 - Td or Tdap) 05/22/2028 05/22/2018, 05/30/2014 Insurance MEDICARE [employer] Member Subscriber Plan / Payer (Ef fective 2008-Present) Name:Daya Nova Member ID:[id number] Relation to Subscriber:Self Name:Daya Nova Subscriber ID:[id number] Payer ID:[id number] Group ID:Not on file Type:MEDICARE TRADITIONAL Address: [address] MEDICARE RAILROAD [facility] Address: [address] [address] [place] [address] [facility] CHOICE PLUS [facility] HMO/PPO Address: [address] [address] [place] [address] [facility] MEDICARE RAILROAD Care Teams Mussel Opener Relationship Specialty Start Date End Date Alejandro Yap MD [address] [place] [address] PCP - General Family Medicine 10/09/21 Carmelo Gant PA [address] [place] [address] Physician Shank Tapper Neurosurgery 11/07/21 Brandan Lim MD [address] [place] [address] Consulting Physician Neurosurgery 11/07/21
--- OUTSIDE RECORDS SUMMARY | 2025-01-11 15:52 | XMS_ITS | Clinical Summary ---
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 Gender Identity Not on file Sexual Orientation Not on file Plan of Treatment Health Maintenance Due Date Last Done Comments DEXA Bone Density 1945 Hepatitis C Virus (HCV) Screening 1945 Pneumococcal Immunization (50+ years) (1 of 1 - PCV) 1993 Zoster Immunization (2 of 3) 11/07/2013 09/12/2013 Respiratory Syncytial Virus (RSV) Immunization (Adult) (1 - 1-dose 75+ series) 2018 Influenza Immunization (#1) 2024 SARS-COV-2 Immunization ( - 2023- season) 2024 DTaP/Tdap/Td Immunization Discontinued 2017, 05/30/2014 TdaP Immunization Completed 05/22/2018 Hepatitis B Immunization Aged Out No longer eligible based on patient's age to complete this topic Meningococcal Immunization (ACWY) Aged Out No longer eligible based on patient's age to complete this topic Rotavirus Immunization Aged Out No lo nger eligible based on patient's age to complete this topic
--- OUTSIDE RECORDS SUMMARY | 2025-01-11 15:52 | XMS_ITS | Patient Health Summary ---
Author Organization [facility] Address [address] [place] [address] Care Team Providers Care Media Professional Name Role Phone Kirill Schultz MD Primary Care Provider [phone] Jerrica Mueller RN Unavailable Note from [facility],non-owned Affiliates and Associated Physician Practices is amultiple site organization consisting of ambulatory clinics and hospital sitesin [place], [place], [place] and [place]. This disclosure is being madepursuant to the Care Everywhere program and may not contain all information available regarding this patient. Last updated 18.[facility] Allergies No known active allergies Medications * Be aware that medications may not be up to date on this document. Alwaysverify current medications with the patient. * losartan - hydrochlorothiazide (HYZAAR) 50-12.5 MG tablet Take 1 Tab by mouth once daily. * aspirin 81 MG tablet once daily. * Calcium Carbonate (CALTRATE 600 PO) 2 times daily. * fish oil/omega-3 fatty acids (FISH OIL) 1000 MG capsule Take 1,000 mg by mouth daily with food. * Multiple Vitamin (MULTI-VITAMIN PO) Take 1 Cap by mouth once daily. * naproxen sodium (ALEVE) 220 MG tablet Take 220 mg by mouth 2 times daily. * hydrocodone-acetaminophen (NORCO) 5-325 MG tablet(Started 02/09/2014) 1-2 q 4-6 hrs prn pain 1 refill left * rosuvastatin (CRESTOR) 5 MG tablet Take 5 mg by mouth once daily * diclofenac sodium EC (VOLTAREN) 75 MG tablet(Started 05/02/2015) Take 1 Tab by mouth 2 times daily 5 refills left * metoprolol succinate XL 24hr (TOPROL XL) 25 MG tablet(Started 04/10/2016) * CRESTOR 10 MG tablet(Started 04/10/2016) Take 12.5 mg by mouth once daily Active Problems Problem Noted Date Diagnosed Date Displacement of lumbar inter vertebral disc without myelopathy 02/07/2014 Follow-up examination, following other surgery 0 11/28/2013 Spinal stenosis, lumbar abran on, with neurogenic claudication 11/15/2013 Immunizations * INFLUENZA VACCINE(Given 11/18/2013) Social History Tobacco Use Types Packs/Day Years [...] Oxygen Concentration 94% 11/17/2013 1 1:14 AM DAIRY MANAGEMENT SPECIALIST Weight 78 kg (172 lb) 04/30/2016 2:17 PM CDT Height 165.1 cm (5' 5 ) 04/30/2016 2:17 PM CDT Body Mass Index 28.62 04/30/2016 2:17 PM CDT Medical Devices Implanted Type Area Wave Solder Offbearer Device Identifier Shelf Expiration Date Model / Serial / Lot Wax Bone Implanted:Qty: 1 on 11/17/2013 at [facility] [employer] [id number] / / Wax Bone Implanted:Qty: 1 on 02/01/2014 at [facility] [employer] [id number] / / Gelfoam Plus Implanted:Qty: 1 on 02/01/2014 by Igor Ladd MD at [facility] Back [employer] 08/09/2015 [id number] / / [id number] Procedures * IMAGING/RADIOLOGY/XRAY RESULTS ORDER(Performed 03/27/2016) * MRI LUMBAR SPINE W CONTRAST(Performed 04/19/2015) Performed for Bilateral lumbar radiculopathy, Weakness of both lower extremities * DERMATOPATHOLOGY(Performed 09/20/2014) * CARDIAC RHYTHM STRIP ORDER(Performed 02/04/2014) * XR SPINE 1 VIEW(Performed 02/01/2014) Performed for Back pain * DISCECTOMY LUMBAR 1-2 LEVELS(Performed 02/01/2014) Performed for Lumbar disc herniation * CT LUMBAR SPINE W CONTRAST(Performed 01/16/2014) Performed for Spinal stenosis, lumbar region, with neurogenic claudication * FL MYELOGRAM LUMBAR(Performed 01/16/2014) Performed for Spinal stenosis, lumbar region, with neurogenic claudication * PT PTT PANEL(Performed 01/16/2014) Performed for Spinal stenosis, lumbar region, with neurogenic claudication * PLATELET COUNT AUTO(Performed 01/16/2014) Performed for Spinal stenosis, lumbar region, with neurogenic claudication * CARDIAC RHYTHM STRIP ORDER(Performed 11/20/2013) * XR SPINE 1 VIEW(Performed 11/17/2013) Performed for Pain * LAMINECTOMY/DECOMPRESSION LUMBAR(Performed 11/17/2013) Performed for Spinal stenosis, lumbar region, with neurogenic claudication * LAB RESULTS ORDER(Performed 06/10/2013) * MRI HIP RIGHT WO CONTRAST(Performed 06/10/2013) * MRI LUMBAR SPINE WO CONTRAST(Performed 06/10/2013) Results * IMAGING/RADIOLOGY/XRAY RESULTS ORDER (03/27/2016) Anatomical Region Laterality Modality Other Provider Unknown IMAGING * MRI SPINE LUMBAR WITH CONTRAST (04/19/2015) Anatomical Region Laterality Modality Spine Other Igor Ladd MD MR ORDERABLES * PATHOLOGY TISSUE FOR DERMATOLOGY (09/20/2014 12:00 AM DAIRY MANAGEMENT SPECIALIST) Result CASE: [id number] PATIENT: DAYA NOVA PATHOLOGIC DIAGNOSIS: A. Left upper medial eyelid: SQUAMOUS PAPILLOMA, BENIGN PRESENT AT MARGIN B. Base of left deltoid: HEMANGIOMA APPROXIMATES MARGIN CLINICAL DATA: A: R/O ISK vs other. Check margins. B: R/O Hemangioma. Check margins. GROSS DESCRIPTION: A: Received is one formalin filled container labeled with the patient's name and designated left upper medial eyelid. The specimen consists of a shave biopsy measuring 5x3x1 mm. Jar 0. B: Received is one formalin filled container labeled with the patient's name and designated base of left deltoid. The specimen consists of a punch biopsy measuring [id number]. The specimen is bisected and submitted in 1 cassette. Jar 0. MICROSCOPIC DESCRIPTION: SPECIMEN A: There is hyperkeratosis, papillomatosis, and acanthosis of the epidermis. The keratinocytes are mature. Lesion is present at the margin of the specimen. SPECIMEN B: In the dermis, there are dilated vascular spaces surrounded by widely spaced endothelial cells. Lesion approximates the margin of the specimen. Electronically signed out by Shanel Barahona M.D., PhD. 09/22/2014 12:05:47PM [facility] Comment: Performed at: Dermatopathology Laboratory [facility] Department of Dermatology [address] [place] [address] [place] [address] Phone number: [phone] FAX: [phone] 09/20/2014 09/21/2014 Lemuel Gutierrez MD LAB - PATHOLOGY/CYTO LOGY ORDERABLES Performing Organization Address City/State/[facility] Co de Phone Number [facility] [address] [place] [address]. 5th Floor Lab [address] [phone] * CARDIAC RHYTHM STRIP ORDER (02/04/2014 12:00 AM CDT) Only the most recent of2 resultswithin the time period is included. Narrative 02/04/2014 12:00 AM CDT Ordered by an unspecified provider. Transcriptions Document, Scanned - 02/04/2014 12:00 AM CDT Scanned Document CARDIAC SERVICES ORD ERABLES * XR SPINE 1 VIEW (02/01/2014 12:06 PM CDT) Only the most recent of2 resultswithin the time period is included. Anatomical Region Laterality Modality Spine Radio Fluoroscop y 02/01/2014 4:32 PM CDT Narrative 02/01/2014 4:32 PM CDT Single lateral intraoperative view of the spine demonstrates posterior surgical equipment with the ruthie at the level of L3. Procedure Note Jake Arguelles MD - 02/01/2014 Single lateral intraoperative view of the spine demonstrates posterior surgical equipment with the ruthie at the level of L3. Igor Ladd MD DIAGNOSTIC IMAGING O RDERABLES * CT LUMBAR SPINE WITH CONTRAST (01/16/2014 1:10 PM CDT) Anatomical Region Laterality Modality Spine Computed Tomogra phy 01/16/2014 6:4 4 PM CDT Impressions 01/16/2014 7:01 PM CDT Right-sided hemilaminectomy at L3-L4 and L4-L5 levels. Bilateral foramina narrowing at L3-L4 and L4-L5 levels (L3-L4 greater than L4-L5). Right L3-L4 foramina seems compromised, may be secondary to concomitant small right postero-lateral disc herniation vs post operative scar. Note: It is hard to differentiate, post-operative changes at these levels from possible underlying disc herniation at L3-L4 and L4-L5 levels. MRI with gadolinium may be helpful to differentiate. Narrative 01/16/2014 7:01 PM CDT History: Patient with a recent history of decompression of lower lumbar spine. The patient has persistent symptoms involving the hip joint and lower back. Patient was referred for CT- myelogram. Technique: CT myelogram of a lumbar spine was obtained after injection of a 6 cc of a Omnipaque-240. The axial images were acquired followed by thin sagittal as well as coronal reformations were obtained. Findings: There is loss of lumbar lordosis. There is mild retrolisthesis noted at L4 over L5. Right-sided hemilaminectomy noted on the right at L4-L5 and L3-L4 levels. There is diffuse degenerative spondylotic changes noted -Loss of intervertebral disc space at the L3-L4 and L4-L5 level -Marginal osteophyte formation and diffuse disc bulge noted at L3-L4 and L4-L5 levels. -Retrolisthesis with disc disease cause bilateral neural foraminal narrowing at L3-L4 and L4-L5 levels, (L3-L4 > L4-L5). - The right neural foramina at the L3-L4 level seems to be compromised, (may be secondary to concomitant small right postero-lateral disc herniation vs postoperative scar formation). The AP dimension is within normal limits. The disc space and neural foramina at T12-L1, L1-L2, L2-L3 and L5-S1 are relatively free. The conus medullaris as well as visualized spinal card has normal thickness and contour. The nerve roots in the thecal sac are within normal limits. Pre-and paravertebral regions are unremarkable. Procedure Note Jessy Beatty MD - 01/16/2014 History: Patient with a recent history of decompression of lower lumbar spine. The patient has persistent symptoms involving the hip joint and lower back. Patient was referred for CT- myelogram. Technique: CT myelogram of a lumbar spine was obtained after injection of a 6 cc of a Omnipaque-240. The axial images were acquired followed by thin sagittal as well as coronal reformations were obtained. Findings: There is loss of lumbar lordosis. There is mild retrolisthesis noted at L4 over L5. Right-sided hemilaminectomy noted on the right at L4-L5 and L3-L4 levels. There is diffuse degenerative spondylotic changes noted -Loss of intervertebral disc space at the L3-L4 and L4-L5 level -Marginal osteophyte formation and diffuse disc bulge noted at L3-L4 and L4-L5 levels. -Retrolisthesis with disc disease cause bilateral neural foraminal narrowing at L3-L4 and L4-L5 levels, (L3-L4 > L4-L5). - The right neural foramina at the L3-L4 level seems to be compromised, (may be secondary to concomitant small right postero-lateral disc herniation vs postoperative scar formation). The AP dimension is within normal limits. The disc space and neural foramina at T12-L1, L1-L2, L2-L3 and L5-S1 are relatively free. The conus medullaris as well as visualized spinal card has normal thickness and contour. The nerve roots in the thecal sac are within normal limits. Pre-and paravertebral regions are unremarkable. IMPRESSION Right-sided hemilaminectomy at L3-L4 and L4-L5 levels. Bilateral foramina narrowing at L3-L4 and L4-L5 levels (L3-L4 greater than L4-L5). Right L3-L4 foramina seems compromised, may be secondary to concomitant small right postero-lateral disc herniation vs post operative scar. Note: It is hard to differentiate, post-operative changes at these levels from possible underlying disc herniation at L3-L4 and L4-L5 levels. MRI with gadolinium may be helpful to differentiate. Igor Ladd MD CT ORDERABLES * FL FLUORO MYELOGRAM LUMBAR (01/16/2014 12:49 PM CDT) Anatomical Region Laterality Modality Spine Radio Fluoroscop y 01/16/2014 6:41 PM CDT Impressions 01/16/2014 6:43 PM CDT Fluoroscopy-guided lumbar puncture, as described above. I, Dr. Abigail Beatty was present and performed the procedure. Narrative 01/16/2014 6:43 PM CDT History: Patient with a recent prior decompression surgery of lower spine. Patient was referred for CT myelogram as the patient was patient presented with recurrent or persistent symptoms. 6Th Grade Teacher: Dr. Abigail Beatty, attending physician. Procedure: Fluoroscopy-guided lumbar puncture and myelogram Procedure: 2 mL of 1% lidocaine. Fluoroscopic time: 54 seconds Procedure in detail: The procedure, risks, benefits and alternatives were explained to the patient and informed consent was obtained. The patient was placed prone on the fluoroscopy table. Initial employee's representative film of lumbar spine was on remarkable. The lower back was prepped and draped in the usual sterile manner. After anesthetizing with 1% lidocaine, using an 20-gauge needle, lumbar puncture was performed under fluoroscopic guidance at L4-L5 level. The initial fluid was clear. Approximately 6 cc of a Omnipaque 240 was injected. The initial myelogram demonstrated the opacification of thecal sac. The needle was removed and the sterile dressing was applied. The patient tolerated the procedure well was no immediate competition. Patient was transferred to complete the CT myelogram. Procedure Note Jessy Beatty MD - 01/16/2014 History: Patient with a recent prior decompression surgery of lower spine. Patient was referred for CT myelogram as the patient was patient presented with recurrent or persistent symptoms. 6Th Grade Teacher: Dr. Abigail Beatty, attending physician. Procedure: Fluoroscopy-guided lumbar puncture and myelogram Procedure: 2 mL of 1% lidocaine. Fluoroscopic time: 54 seconds Procedure in detail: The procedure, risks, benefits and alternatives were explained to the patient and informed consent was obtained. The patient was placed prone on the fluoroscopy table. Initial employee's representative film of lumbar spine was on remarkable. The lower back was prepped and draped in the usual sterile manner. After anesthetizing with 1% lidocaine, using an 20-gauge needle, lumbar puncture was performed under fluoroscopic guidance at L4-L5 level. The initial fluid was clear. Approximately 6 cc of a Omnipaque 240 was injected. The initial myelogram demonstrated the opacification of thecal sac. The needle was removed and the sterile dressing was applied. The patient tolerated the procedure well was no immediate competition. Patient was transferred to complete the CT myelogram. IMPRESSION Fluoroscopy-guided lumbar puncture, as described above. I, Dr. Abigail Beatty was present and performed the procedure. Igor Ladd MD FLUOROSCOPY ORDERABL ES * (ABNORMAL) PT PTT PANEL (01/16/2014 8:51 AM CDT) PT 9.9 9.4 - 11.4 sec 01/16/2014 9:51 AM CDT [facility] INR 0.94 0.89 - 1.07 01/16/2014 9:51 AM CDT [facility] PTT 23.0(L) 24.0 - 33.0 sec 01/16/2014 9:51 AM CDT [facility] Blood BLOOD SPECIMEN / Unknown Venipuncture / Unknown 01/16/2014 8:51 AM CDT 01/16/2014 9:05 AM CDT Narrative [facility] - 01/16/2014 9:51 AM CDT Conventional Anticoagulant Therapy INR Reference Ranges: 2.0-3.0 Intensive Anticoagulant Therapy INR Reference Ranges: 2.5-3.5 Igor Ladd MD LAB - COAGULATION OR DERABLES [facility] [address] [place] [address] * PLATELET COUNT AUTO (01/16/2014 8:51 AM CDT) Platelet Count 303 153 - 416 x10^9/L 01/16/2014 9:15 AM CDT [facility] Blood BLOOD SPECIMEN / Unknown Venipuncture / Unknown 01/16/2014 8:51 AM CDT 01/16/2014 9:05 AM CDT Igor Ladd MD LAB - HEMATOLOGY ORD ERABLES [facility] [address] [place] [address] * LAB RESULTS ORDER (06/10/2013) Narrative Iqra Gould - 06/10/2013 A scan was deleted from the Results section by Lucian Gould [[email or web address]] on 11/21/2013 at 2:13 PM (File: [id number]) Igor Ladd MD LAB - THERAPEUTIC DR MADERA MONITORING ORDERABLES * MRI HIP WO CONT RIGHT (06/10/2013) Anatomical Region Laterality Modality Other Igor Ladd MD MR ORDERABLES * MRI SPINE LUMBAR NON CONTRAST (06/10/2013) Anatomical Region Laterality Modality Spine Other Igor Ladd MD MR ORDERABLES Care Teams Media Professional Relationship Specialty Start Date End Date Kirill Schultz MD [address] [place] [address] PCP - General Internal Medicine 11/17/13 Jerrica Mueller, RN Drapery Rod Assembler 02/02/14
--- OUTSIDE RECORDS SUMMARY | 2025-01-11 15:52 | XMS_ITS | Referral Summary ---
Author Organization [facility] Address [address] [place] [address] Care Team Providers Care Electrical Technician Name Role Phone Alejandro Yap MD Primary Care Prov ider Carmelo Gant Unavailable [phone] Brandan Lim MD Unavailable [phone] Allergies No known active allergies Medications valsartan-hydro [...] Trivalent, IM (MDV) 08/29/2019 Influenza, Unspecified 11/18/2013 Social History Tobacco Use Types Packs/Day [...] on file Legal Sex Female 2:37 AM SAW MAN Gender Identity Not on file Sexual Orientation Not on file Occupation Industry Job Start Date Job End Date Retired Not on file Not on file Not on file Last Filed Vital Signs Vital Sign Reading Time Taken Comments Blood Pressure 157/88 02/13/2023 10:03 AM CDT Pulse 79 02/13/2023 10:03 AM CDT Temperature - - Respiratory Rate 16 12/09/2022 10:14 AM SAW MAN Oxygen Saturation 99% 12/09/2022 10:14 AM SAW MAN Inhaled Oxygen Concentration - - Weight 72.7 kg (160 lb 6 oz) 02/13/2023 10:03 AM CDT Height 165.1 cm (5' 5 ) 02/13/2023 10:03 AM CDT Body Mass Index 26.69 02/13/2023 10:03 AM CDT Plan of Treatment Not on file Insurance MEDICARE RAILROAD [facility] MEDICARE RAILROAD [facility] CHO[facility] PLUS [facility] MEDICARE RAILROAD Care Teams Electrical Technician Relationship Specialty Start Date End Date Alejandro Yap MD [address] [place] [address] PCP - General Family Medicine 10/09/21 Carmelo Gant PA [address] [place] [address] [place] [address] Physician Cnc Mill Programmer Neurosurgery 11/07/21 Brandan Lim MD [address] [place] [address] Consulting Physician Neurosurgery 11/07/21
--- OUTSIDE RECORDS SUMMARY | 2025-01-11 15:52 | XMS_ITS | Clinical Summary ---
Author Organization [facility] Address [address] [place] [address] Care Team Providers Care Typist Name Role Phone Kirill Schultz MD Primary Care Provider [phone] Jerrica Mueller RN Unavailable Source Comments [facility],non-owned Affiliates and Associated Physician Practices is amultiple site organization consisting of ambulatory clinics and hospital sitesin [place], [place], [place] and [place]. This disclosure is being madepursuant to the Care Everywhere program and may not contain all information available regarding this patient. Last updated 18.[facility] Allergies No known active allergies Medications * [...] Administration Dates Next Due INFLUENZA VACCINE 11/18/2013 Family History Medical History Relation Name Comments PR Father Non-contributory Mother alive Relation Name Status Comments Father (Age 72) Mother Alive Social History Tobacco Use Types Packs/Day [...] Oxygen Concentration 94% 11/17/2013 1 1:14 AM SOLUTIONS SPECIALIST Weight 78 kg (172 lb) 04/30/2016 2:17 PM CDT Height 165.1 cm (5' 5 ) 04/30/2016 2:17 PM CDT Body Mass Index 28.62 04/30/2016 2:17 PM CDT Plan of Treatment Health Maintenance Due Date Last Done Comments BONE DENSITY TESTING 1945 MEDICARE AWV 12 MONTHS 1945 DTAP/TDAP/TD VACCINES (1 - Tdap) 1962 PNEUMOCOCCAL VACCINE 50+ (1 of 1 - PCV) 1993 ZOSTER VACCINE (1 of 2) 1993 Respiratory Syncytial Virus (RSV) Vaccine Pt: or over 60 yrs (1 - 1-dose 75+ series) 2018 COVID-19 VACCINE ( - 2023-2 5 season) 2024 INFLUENZA VACCINE (#1) 2024 11/18/2013 DEPRESSION SCREENING 11/09/2024 HEPATITIS B VACCINE Aged Out No longe r eligible based on patient's age to complete this topic HIB VACCINE Aged Out No longer eligi ble based on patient's age to complete this topic HPV VACCINE Aged Out No longer eligi ble based on patient's age to complete this topic MENINGOCOCCAL (Group B) VACCINE Aged Out No longer eligible based on patient's age to complete this topic MENINGOCOCCAL VACCINE Aged Out No amber nora eligible based on patient's age to complete this topic Medical Devices Implanted Type Area Lighthouse Keeper Device Identifier Shelf Expiration Date Model / Serial / Lot Wax Bone Implanted:Qty: 1 on 11/17/2013 at [facility] [email or web address] [id number] / / Wax Bone Implanted:Qty: 1 on 02/01/2014 at [facility] [email or web address] [id number] / / Gelfoam Plus Implanted:Qty: 1 on 02/01/2014 by Iogr Ladd MD at [facility] Back [employer] 08/09/2015 [id number] / / [id number] Advance Directives * Full Code (Latest Code Status on File) Date Activated Date Inactivated Comments 02/01/2014 2:11 PM 02/02/2014 3:20 PM * FULL RESUSCITATION Date Activated Date Inactivated Comments 11/17/2013 5:55 PM 11/18/2013 2:58 PM Care Teams Typist Relationship Specialty Start Date End Date Kirill Schultz MD [address] [place] [id number] PCP - General Internal Medicine 11/17/13 Jerrica Mueller, RN Health Tech 02/02/14
== END 2025-01-11 14:13 | disposition home or self-care (01) ==
PROVIDERS: PCP Family Medicine Adolescent Medicine; Visit Provider Nurse Practitioner Family
DX: R06.00 Dyspnea, unspecified (principal); K92.1 Melena
CPT/HCPCS: 36415; 71046; 80053; 85025

== ENCOUNTER 2025-01-28 09:16 | Emergency (ER) | payer MEDICARE, OTHER, SELFPAY ==
--- NOTE | 2025-01-28 09:30 | ED_ITS ---
HPI - Female Genitourinary General Chief complaint: Urogenital-Female Stated complaint: urinary issue Time Seen by Provider: 01/28/25 09:30 Source: patient, RN notes reviewed and old records reviewed Mode of arrival: ambulatory Limitations: no limitations History of Present Illness HPI Narrative: Patient presents with complaints of urinary frequency that began last night. She denies any fever, chills, sweats. She does report some dysuria and hematuria. She does not appear to be in any distress. Denies any injury or trauma Related Data Home Medications ?Medication ?Instructions ?Recorded ?Confirmed ?Last Taken ?Type calcium 600 mg (as 1 tablet PO DAILY 06/17/22 01/28/25 09/06/23 History carbonate)-vitamin D3 20 mcg (800 unit) tablet mv-mn-folic 200 mcg-vit K 15 1 cap PO DAILY 11/04/23 01/28/25 Unknown History mcg-lutein 5 mg-zeaxanthin 1 mg capsule (PreserVision AREDS 2 Plus Multivit) aspirin 81 mg capsule 81 mg PO DAILY 04/13/24 01/28/25 Unknown History multivitamin 1 tablet PO DAILY 04/13/24 01/28/25 Unknown History Allergies Allergy/AdvReac Type Severity Reaction Status Date / Time clindamycin Allergy Intermediate Rash Verified 01/28/25 09:38 pentazocine Allergy Unknown Unknown - Verified 01/28/25 09:38 UNABLE TO RECALL Review of Systems Review of Systems: All systems reviewed & are unremarkable except as noted in HPI and below Constitutional: Constitutional: Reports no additional constitutional complaints ENT: Reports system reviewed and no additional complaints, except as docu mented Cardiovascular: Cardiovascular: Reports no additional cardiovascular complaints Respiratory: Respiratory: Reports no additional respiratory complaints Gastrointestinal: Gastrointestinal: Reports no additional gastrointestinal complaints Genitourinary: Genitourinary: Reports no additional female genitourinary complaints, Reports as per HPI, Reports hematuria, Reports dysuria and Reports urinary urgency [facility] Past Medical History Medical History Left femoral vein DVT Hyperlipidemia Hypertension Bladder incontinence Surgical History Surgical History History of bilateral cataract extraction History of total left hip arthroplasty (08/2023) History of total right hip arthroplasty (2015) History of lumbar surgery decompression / microdiscectomy/ decompression-microdiscectomy X3 surgeries History of laparoscopic cholecystectomy History of hysterectomy with oophorectomy Family History Family History Mother Family history of malignant neoplasm of breast in first degree relative, Onset Age: 70 Breast cancer Father Acute myocardial infarction Sibling No problems noted. Other Family history of cardiovascular disease Family history of hearing loss Family history of malignant neoplasm of breast Family history of mental disorder Social History Social History Social History: Surrogate medical decision maker: Toro Nova, spouse. Code status: Full code. Smoking status: Never smoker Second hand tobacco smoke exposure: No Alcohol intake: never Substance use: never Substance use type: does not use Do You Feel Safe in your Home?: Yes Lack of Transportation: No Lack of Food: Never True Current Housing: I Have Housing Concerned About Future Housing: No Difficulty Paying Gas/Electric Bills: No Difficulty Paying for Meds: No Currently Unemployed: No Education: Associate Degree Difficulty w/ Childcare or Family Care: No Living arrangements: with family Additional living arrangements comments: Lives with spouse in [place]. Occupation/Education: retired Additional occupation/education comments: Retired registered nurse- [employer] Gender identity (if verbalized by the patient): Female Spiritual care concerns: No Agree to blood products: Yes Comments At the time of my signature, I reviewed and agree with the nursing past medical, surgical, social, and family history. There is no relevant family history pertinent to the patient complaint. Exam Const: General: cooperative, no acute distress, alert and awake Orientation/consciousness: oriented to person, oriented to place and oriented to time HENMT: Head: normal to inspection Resp: Effort & Inspection: normal respiratory effort and able to speak in complete sentences Auscultation: clear to auscultation bilaterally, no crackles, no rales, no rhonchi and no wheezes Cardio: Palpation: normal PMI Rate: regular rate Rhythm: regular rhythm Heart sounds: S1 normal heart sound present and S2 normal heart sound present : General: Yes bladder normal to palpation and Yes no CVA tenderness Neuro: General: oriented to person, oriented to place and oriented to time Cranial nerves: Yes CN's II-XII intact bilaterally Psych: Appearance: grossly normal Thought process: Normal thought process present Insight: Good insight present (Psych) Judgement: Good judgement present (Psych) Course Course Level of Care: Express Care Visit Vital Signs Vital signs: Reviewed MDM - Female Genitourinary MDM Narrative Medical decision making narrative: UA concerning for UTI. Start Macrobid, culture pending. Reassuring physical exam, patient nontoxic appearing, stable for discharge home. Discharge instructions reviewed with patient, as well as provided in writing per nursing staff. The instructions also include specific and strict return/GO TO THE ER as well as f/u information. All questions have been answered, and the patient deny any further questions with discharge and discharge plan. Some parts of this dictation were generated by voice recognition software and may contain typographical and/or grammatical inaccuracies. Differential Diagnosis Differential diagnosis: Likely urinary tract infection and cystitis Medical Records Attestation: I reviewed the patient's medical records. Lab Data Attestation: I reviewed the patient's lab results. Discharge Plan Discharge Clinical Impression: Urinary tract infection Qualifiers: Urinary tract infection type: site unspecified Hematuria presence: without hematuria Qualified Code(s): N39.0 - Urinary tract infection, site not specified Patient Disposition: Home, Self-Care Condition: Stable Instructions: Antibiotic Form, Urinary Tract Infection in Older Adults (ED) Additional Instructions: Take medications as prescribed. Follow with primary care provider. Emergency department for new or worsening symptoms or if current symptoms do not improve Patient Language: Comoran Prescriptions: New nitrofurantoin monohyd/m-cryst [Macrobid] 100 mg capsule 100 mg PO Q12H 5 Days Qty: 10 0RF Rx Instructions: must administer with a meal/food No Action aspirin 81 mg capsule 81 mg PO DAILY multivitamin Tablet 1 tablet PO DAILY PreserVision AREDS 2 Plus MV 200 mcg-15 mcg- 5 mg-1 mg capsule 1 cap PO DAILY valsartan 320 mg tablet 320 mg PO DAILY Qty: 90 0RF calcium carbonate-vitamin D3 600 mg-20 mcg (800 unit) tablet 1 tablet PO DAILY metoprolol succinate 25 mg tablet extended release 24 hr See Rx Instructions .ROUTE .COMPLEX Qty: 90 0RF Dose Instruction: Take 1 tablet by mouth once daily Rx Instructions: Take 1 tablet by mouth once daily amlodipine 5 mg tablet See Rx Instructions .ROUTE .COMPLEX Qty: 90 1RF Dose Instruction: Take 1 tablet by mouth once daily Rx Instructions: Take 1 tablet by mouth once daily rosuvastatin 10 mg tablet 5 mg PO DAILY Qty: 45 2RF Follow-up/Referrals: Alejandro Yap MD [Primary Care Provider] - 2 Weeks Time of Disposition: 09:47
[2025-01-28 09:38] VITALS: BP 132/60; PULSE 90; RESP 16; TEMP 36.9; O2SAT 99
[2025-01-28 09:42] LABS: EDUAAPPEAR Cloudy; EDUABILI 1+ (Negative); EDUABLOOD 3+ (Negative); EDUACOLOR1 Pink; EDUAGLUCOSE Negative (Negative); EDUAKETONE Negative (Negative); EDUALEUKO 3+ (Negative); EDUANITRATE Negative (Negative); EDUAPROTEIN 3+ (Negative); EDUASPGRAVITY 1.015
== END 2025-01-28 09:50 | disposition home or self-care (01) ==
PROVIDERS: Emergency Provider Nurse Practitioner Family; PCP Family Medicine Adolescent Medicine
DX: N39.0 Urinary tract infection, site not specified (principal); E78.5 Hyperlipidemia, unspecified; I10 Essential (primary) hypertension; Z86.718 Personal history of other venous thrombosis and embolism; Z79.82 Long term (current) use of aspirin
CPT/HCPCS: 81003; 87086; 87186; 99213; G0463

== ENCOUNTER 2025-04-21 11:30 | Emergency (ER) | payer MEDICARE, OTHER, SELFPAY ==
--- NOTE | ~2025-04-21 | CT_ITS ---
EXAMINATION: 1. CT facial & cervical spine wo DATE: 04/21/2025 12:33 INDICATION: Fall with head injury TECHNIQUE: 1. Computed tomography (CT) of the maxillofacial region and of the cervical spine were performed with out intravenous contrast. Sagittal and coronal reconstructions of both regions were obtained. Automat ed exposure control and iterative reconstruction technique were employed. The dose-length product was 876.24 mGy-cm. COMPARISON: None. FINDINGS: Maxillofacial CT: Small left subdural hematoma. Changes of bilateral intraocular lens replacement. The main of the orb its, paranasal sinuses remain intact as do the zygomatic arches and the mandible. Comminuted fracture of the bilateral nasal bones which are displaced and deviated towards the right. This most prominent at the right nasal bone with displacement is up to 4 mm. There is also a comminuted fractures involv ing the anterior half of the nasal septum with rightward deviation anteriorly and with mild buckling more posteriorly. The nasal sinuses, mastoid air cells and middle ear cavities are clear. Cervical spine CT: Mild cervicothoracic dextrocurvature. Mild reversal of the normal cervical lordosis which could be po sitional. Moderate osteoarthritis at the atlantoaxial articulation and severe osteoarthritis at the a rticulations of the right lateral mass of C1 and C2. There is posterior fusion across the left-sided C2-C4 facet joints and of the right C2-C3 facet joint. Vertebral body heights are normal. No acute fr acture the cervical spine. There is severe disc height loss at C4-C5, moderate disc height loss at C2 -C3, C5-C6 and C6-C7 and mild disc height loss at C3-C4 and C7-T1. Minimal 2 mild central canal steno sis related to small posterior disc osteophyte complexes at C4-C5 through C6-C7. Multilevel moderate to severe osteoarthritis at the unfused cervical and upper thoracic facet joints. There is also moder ate to severe osteoarthritis at many of the cervical uncovertebral joints. There is moderate neural f oraminal stenosis on the right at C3-C4 and on the left at C5-C6 and C7-T1 with mild neural foraminal stenosis at many of the remaining cervical neural foramina. Atherosclerotic calcifications at the bi lateral carotid bulbs. Cervical soft tissues are otherwise unremarkable. Visualized apices of lungs a re clear. IMPRESSION: 1. Mild rightward displacement and attenuation comminuted fractures of the bilateral nasal bones and of the anterior nasal septum. 2. Moderate to severe cervical spondylosis with no acute osseous abnormality. Reviewed, dictated and finalized at location A. IMPRESSION: 1. Mild rightward displacement and attenuation comminuted fractures of the bila teral nasal bones and of the anterior nasal septum. 2. Moderate to severe cervical spondylosis with no acute osseous abnormality.
--- NOTE | ~2025-04-21 | XR_ITS ---
[XR ribs LT 2V ] INDICATION: Left rib pain TECHNIQUE: Frontal projection of the upper left ribs, frontal projection of the lower left ribs, obli que projection of all the left ribs, frontal inspiratory chest x-ray for interpretation. FINDINGS: There are no displaced rib fractures identified. There are no soft tissue abnormality see n. The lungs are clear. There is scoliosis. IMPRESSION: 1:No acute displaced rib fractures. Reviewed, dictated and finalized at location B.
--- NOTE | ~2025-04-21 | CT_ITS ---
EXAMINATION: CT brain wo con DATE: 04/21/2025 12:33 INDICATION: Fall TECHNIQUE: Computed tomography (CT) of the head was performed without intravenous contrast. Sagittal and coronal reconstructions were performed. The mA was adjusted according to patient size. Iterative reconstruction technique was employed. The dose-length product was 376.24 mGy-cm. COMPARISON: Brain MR dated 11/19/2022 FINDINGS: No calvarial fracture. Bilateral comminuted nasal bone fractures with minimal medial displacement and mild medial angulation on the left and with 3 mm lateral displacement on the right. No acute intracr anial hemorrhage, acute infarction or abnormal extra axial fluid collection. There is moderate scatte red white matter hypoattenuation consistent with chronic small vessel ischemic disease. Ventricles ar e normal and symmetric. No mass/mass effect. The orbits, paranasal sinuses and mastoid air cells are normal. IMPRESSION: 1. No calvarial fracture or acute intracranial process. 2. Acute bilateral nasal bone fractures. 3. Moderate scattered cerebral white matter hypoattenuation consistent with chronic small vessel isch emic disease. Reviewed, dictated and finalized at location A. IMPRESSION: 1. No calvarial fracture or acute intracranial process. 2. Acute bilateral nasal bone fractures. 3. Moderate scattered cerebral white matter hypoattenuation consistent with chr onic small vessel ischemic disease.
[2025-04-21 11:31] VITALS: PULSE 87; RESP 18; TEMP 36.6; O2SAT 98
[2025-04-21 11:35] VITALS: BP 139/76; O2SAT 99
[2025-04-21 12:01] VITALS: BP 131/82; O2SAT 97
--- OUTSIDE RECORDS SUMMARY | 2025-04-21 12:22 | XMS_ITS | Clinical Summary ---
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
--- OUTSIDE RECORDS SUMMARY | 2025-04-21 12:22 | XMS_ITS | Clinical Summary ---
Author Organization [employer] [address] [facility] Address [address] [place] [address] Care Team Providers Care Rn Gastroenterology Name Role Phone Alejandro Yap MD Primary Care Provider [phone] Allergies No known active allergies Medications metoprolol [...] Comments Blood Pressure 120/70 12/07/2019 11:30 AM GENERAL OPERATIONS AGENT Pulse 82 12/07/2019 11:30 AM GENERAL OPERATIONS AGENT Temperature 36.7 C (98 F) 12/07/2019 10:15 AM GENERAL OPERATIONS AGENT Respiratory Rate 17 12/07/2019 11:3 0 AM GENERAL OPERATIONS AGENT Oxygen Saturation 94% 12/07/2019 11: 30 AM GENERAL OPERATIONS AGENT Inhaled Oxygen Concentration - - Weight 65.2 kg (143 lb 12.8 oz) 12/07/2019 5:49 AM GENERAL OPERATIONS AGENT Height 165.1 cm (5' 5) 12/07/2019 5:49 AM GENERAL OPERATIONS AGENT Body Mass Index 23.93 12/07/2019 5:49 AM GENERAL OPERATIONS AGENT Plan of Treatment Health Maintenance Due Date Last Done Comments DTAP/TDAP/TD VACCINES (1 - Tdap) 1962 PNEUMOCOCCAL VACCINE 50+ YEARS (1 of 1 - PCV) 07/01/19 93 ZOSTER VACCINE (1 of 2) 1993 OSTEOPOROSIS SCREENING 2008 RSV VACCINE (60+ or ) (1 - 1-dose 75+ series) 2018 INFLUENZA VACCINE (#1) 2024 08/29/2019 Medical Devices Implanted Type Area Bank Teller Device Identifier Shelf Expiration Date Model / Serial / Lot Hemostatic Surgiflo 8ml W/Thrombin 2994 - [id number] Implanted:Qty: 1 on 12/07/2019 by Wes Swain MD at [facility] [employer] 2994 / / Description:trans from suppl [place] [id number] [address] [place] [address] RX [employer] RX Member Subscriber Plan / Payer (Ef fective 2008-Present) Name:Daya Nova Relation to Subscriber:Self Name:Daya Nova Payer ID:Not on file Group ID:[id number] Type:RX Medicare Part D Address: [address] Advance Directives For more information, please contact: [phone] Documents on File Type Date Recorded Patient Computer Applications Instructor Expl anation Advance Directive POA 12/07/2019 7:04 AM A dvance Directive POA Advance Directive Living Will 12/07/2019 7:03 AM Advance Directive Living Will Care Teams Rn Gastroenterology Relationship Specialty Start Date End Date Alejandro Yap MD PCP - General Family Practice 08/10/19
--- OUTSIDE RECORDS SUMMARY | 2025-04-21 12:22 | XMS_ITS | Referral Summary ---
Author Organization [facility] Address [address] [place] [address] Care Team Providers Care Engraver Letter Name Role Phone Alejandro Yap MD Primary Care Prov ider Carmelo Gant Unavailable [phone] Brandan Lim MD Unavailable [phone] Encounters Date Type Department Care Team Description 03/16/2025 2:30 PM CDT Ancillary Procedure [facility] Cardiology at [address] [place] [id number] Other forms of dyspnea 02/10/2025 10:30 AM CDT Office Visit [facility] Cardiology [address] [place] [phone] Jake Grey MD Pure hypercholesterolemia, unspecified; Hyperlipidemia, unspecified hyperlipidemia type; Other forms of dyspnea from Last 3 Months Allergies No known active allergies Medications rosuvastatin (CRESTOR) 10 mg tablet Take 0.5 tablets (5 mg total) by mouth daily 12/31/2021 Active metoprolol XL (TOPROL-XL) 25 mg extended [...] (81 mg total) by mouth daily Active amLODIPine (NORVASC) 5 mg tablet Take 1 tablet (5 mg total) by mouth daily 01/04/2025 Active valsartan (DIOVAN) 320 mg tablet Take 1 tablet (320 mg total) by mouth daily 01/23/2025 Active Active Problems Problem Noted Date Diagnosed Date Hyperlipidemia 02/10/2025 Lumbosacral spondylosis with radiculopathy 01/03 Postlaminectomy syndrome, [...] of Binge Drinking Not on file 05/2022 Comments Unknown Sex and Gender Information Value Date Recorded Sex Assigned at Not on file 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 Gender Identity Not on file Sexual Orientation Not on file Occupation Industry Job Start Date Job End Date Retired Not on file Not on file Not on file Last Filed Vital Signs Vital Sign Reading Time Taken Comments Blood Pressure 122/80 02/10/2025 10:17 AM CDT Pulse 87 02/10/2025 10:17 AM CDT Temperature - - Respiratory Rate 14 02/10/2025 10:17 AM CDT Oxygen Saturation 98% 02/10/2025 10:17 AM CDT Inhaled Oxygen Concentration - - Weight 72.1 kg (159 lb) 02/10/2025 10:17 AM CDT Height 165.1 cm (5' 5) 02/10/2025 10:17 AM CDT Body Mass Index 26.46 02/10/2025 10:17 AM CDT Plan of Treatment Not on file Procedures Procedure Name Priority Date/Time Associated Diagnosis Comments TRANSTHORACIC ECHO (TTE) COMPLETE W DOPPLER/CF WO CONTRAST Routine 03/16/2025 2:54 PM CDT Other forms of dyspnea POCT LIPID PANEL Routine 02/10/2025 10:3 1 AM CDT Pure hypercholesterolemia , unspecified Hyperlipidemia, unspecified hyperlipidemia type ELECTROCARDIOGRAM REPORT Routine 025 10:21 AM CDT Other forms of dyspnea from Last 3 Months Results * TRANSTHORACIC ECHO (TTE) COMPLETE W DOPPLER/CF WO CONTRAST (03/16/2025 2:54 PM CDT) Estimated EF 75 % CONS SCIMAGE EF Mod BP 63 % CONS SCIMAGE Anatomical Region Laterality Modality Ultrasound 03/16/2025 2:30 PM CDT Narrative 03/17/2025 12:44 PM CDT [facility]iology [address], [address], [place] [address] [phone] P:[phone] Echocardiographic Report Patient Name: DAYA NOVA A : 1945 Study Date: 03/16/2025 2:30:38 PM Gender: F Tech: Location: EDW Ref Provider: JAKE GREY Height(Cm): 165 BSA: 1.82 Weight(Kg): 72.1 Heart Rate: 81 BP: 122 / 80 Quality: Good Order Provider: JAKE GREY PROCEDURES: Echocardiographic Report: Transthoracic echocardiogram with complete 2D, M-Mode, and color Doppler examination. With Strain Analysis. INDICATIONS: R06.09 Other forms of dyspnea. MEASUREMENTS: 2D/MM Value Range Doppler Value Range EF Mod BP 63 % [ 54 - 74 ] JUMANA Vmax 2.90 cm2 [ 2.00 - 4.00 ] EF Teich MM 60 % [ 54 - 74 ] AV Mean PG 8 mmHg Estimated EF 75 % AV Peak Carlos 1.84 m/s [ 1.00 - 1.70 ] LVIDd 2D 3.79 cm [ 3.80 - 5.20 ] AV Peak PG 14 mmHg LVIDd MM 4.58 cm [ 3.80 - 5.20 ] AV VTI 37.59 cm LVIDs 2D 2.26 cm [ 2.20 - 3.50 ] LVOT Diam 1.99 cm [ 1.70 - 2.10 ] LVIDs MM 3.11 cm [ 2.20 - 3.50 ] LVOT Peak Carlos 1.71 m/s [ 0.70 - 1.10 ] LVPWd 2D 0.94 cm [ 0.60 - 0.90 ] LVOT VTI 37.84 cm LVPWd MM 0.84 cm [ 0.60 - 0.90 ] MV E Peak Carlos 0.63 m/s [ 0.60 - 1.30 ] IVSd 2D 0.93 cm [ 0.60 - 0.90 ] MV A Peak Carlos 1.08 m/s [ 1.00 - 1.20 ] IVSd MM 0.75 cm [ 0.60 - 0.90 ] MV Decel Time 164 msec [ 104 - 258 ] LA Dimension MM 3.23 cm [ 2.70 - 3.80 ] PV Peak Carlos 0.78 m/s [ 0.40 - 0.80 ] AoR Diam MM 3.66 cm [ 2.70 - 3.70 ] TR Peak Carlos 2.65 m/s [ 1.00 - 2.80 ] LA Volume Index 21 cc/m2 [ 16 - 34 ] TR Peak PG 28 mmHg ACS MM 1.53 cm RVSP 36.00 mmHg [ 10.00 - 36.00 ] Lateral E` 0.07 m/s [ 0.10 - 0.15 ] E/E` 9 2D/MM Value Range Doppler Value Range - FINDINGS: Interpretation Site: Exam was interpreted at [facility]. Left Ventricle: Normal left ventricular size. Hyperdynamic left ventricular function. No focal wall motion abnormalities. Impaired diastolic relaxation Grade I. Ejection fraction is measured at 63 %. Ejection Fraction is visually estimated to be 75 %. Global Longitudinal Strain is -19 %. Right Ventricle: Normal right ventricular size. Left Atrium: The left atrium is normal in size. Right Atrium: The right atrium is normal in size. Atrial Septum: Normal atrial septum. Mitral Valve: Normal appearance of the mitral valve. Aortic Valve: Aortic cusps appear mildly sclerotic. Mild aortic valve regurgitation. Tricuspid Valve: Estimated peak RVSP is 26 mmHg. Pulmonic Valve: Normal appearance of the pulmonic valve. Pericardium: Normal pericardium with no significant pericardial effusion. Aorta: Normal aortic root. IVC: Normal size and normal respiratory collapse consistent with normal right atrial pressure (<5 mmHg). Pulmonary Artery: Normal pulmonary artery size. CONCLUSIONS: Normal left ventricular size. Hyperdynamic left ventricular function. No focal wall motion abnormalities. Impaired diastolic relaxation Grade I. Ejection fraction is measured at 63 %. Ejection Fraction is visually estimated to be 75 %. Global Longitudinal Strain is -19 %. The left atrium is normal in size. Aortic cusps appear mildly sclerotic. Mild aortic valve regurgitation. Electronically Signed By: Jake Grey MD, [facility] 03/17/2025 12:44:34 PM CDT Procedure Note Jake Grey MD - 03/17/2025 [facility] Cardiology [address] [place] [address], [address], [place] [address] P:[phone] P:[phone] Echocardiographic Report Patient Name: DAYA NVOA A : 1945 Study Date: 03/16/2025 2:30:38 PM Gender: F Tech: Location: EDW Ref Provider: JAKE GREY Height(Cm): 165 BSA: 1.82 Weight(Kg): 72.1 Heart Rate: 81 BP: 122 / 80 Quality: Good Order Provider: JAKE GREY PROCEDURES: Echocardiographic Report: Transthoracic echocardiogram with complete 2D, M-Mode, and color Dopplerexamination. With Strain Analysis. INDICATIONS: R06.09 Other forms of dyspnea. MEASUREMENTS: 2D/MM Value Range Doppler ValueRange EF Mod BP 63 % [ 54 - 74 ] JUMANA Vmax 2.90cm2 [ 2.00 - 4.00 ] EF Teich MM 60 % [ 54 - 74 ] AV Mean PG 8mmHg Estimated EF 75 % AV Peak Carlos 1.84m/s [ 1.00 - 1.70 ] LVIDd 2D 3.79 cm [ 3.80 - 5.20 ] AV Peak PG 14mmHg LVIDd MM 4.58 cm [ 3.80 - 5.20 ] AV VTI 37.59cm LVIDs 2D 2.26 cm [ 2.20 - 3.50 ] LVOT Diam 1.99 cm[ 1.70 - 2.10 ] LVIDs MM 3.11 cm [ 2.20 - 3.50 ] LVOT Peak Carlos 1.71m/s [ 0.70 - 1.10 ] LVPWd 2D 0.94 cm [ 0.60 - 0.90 ] LVOT VTI 37.84cm LVPWd MM 0.84 cm [ 0.60 - 0.90 ] MV E Peak Carlos 0.63m/s [ 0.60 - 1.30 ] IVSd 2D 0.93 cm [ 0.60 - 0.90 ] MV A Peak Carlos 1.08m/s [ 1.00 - 1.20 ] IVSd MM 0.75 cm [ 0.60 - 0.90 ] MV Decel Time 164msec [ 104 - 258 ] LA Dimension MM 3.23 cm [ 2.70 - 3.80 ] PV Peak Carlos 0.78m/s [ 0.40 - 0.80 ] AoR Diam MM 3.66 cm [ 2.70 - 3.70 ] TR Peak Carlos 2.65m/s [ 1.00 - 2.80 ] LA Volume Index 21 cc/m2 [ 16 - 34 ] TR Peak PG 28mmHg ACS MM 1.53 cm RVSP 36.00mmHg [ 10.00 - 36.00 ] Lateral E` 0.07 m/s [ 0.10 - 0.15 ] E/E` 9 2D/MM Value Range Doppler ValueRange - FINDINGS: Interpretation Site: Exam was interpreted at [facility]. Left Ventricle: Normal left ventricular size. Hyperdynamic left ventricular function. Nofocal wall motion abnormalities. Impaired diastolic relaxation Grade I. Ejectionfraction is measured at 63 %. Ejection Fraction is visually estimated to be 75 %.Global Longitudinal Strain is -19 %. Right Ventricle: Normal right ventricular size. Left Atrium: The left atrium is normal in size. Right Atrium: The right atrium is normal in size. Atrial Septum: Normal atrial septum. Mitral Valve: Normal appearance of the mitral valve. Aortic Valve: Aortic cusps appear mildly sclerotic. Mild aortic valve regurgitation. Tricuspid Valve: Estimated peak RVSP is 26 mmHg. Pulmonic Valve: Normal appearance of the pulmonic valve. Pericardium: Normal pericardium with no significant pericardial effusion. Aorta: Normal aortic root. IVC: Normal size and normal respiratory collapse consistent with normal rightatrial pressure (<5 mmHg). Pulmonary Artery: Normal pulmonary artery size. CONCLUSIONS: Normal left ventricular size. Hyperdynamic left ventricular function. Nofocal wall motion abnormalities. Impaired diastolic relaxation Grade I. Ejectionfraction is measured at 63 %. Ejection Fraction is visually estimated to be 75 %.Global Longitudinal Strain is -19 %. The left atrium is normal in size. Aortic cusps appear mildly sclerotic. Mild aortic valve regurgitation. Electronically Signed By: Jake Grey MD, [facility] 03/17/2025 12:44:34 PM CDT us Jake Grey MD CV ECHO PROCEDURES Final Result * POCT lipid panel (02/10/2025 10:31 AM CDT) Cholesterol, POC 149 mg/dL HDL, POC 50 mg/dL Triglycerides, POC 211 mg/dL LDL Cholesterol POC 56 mg/dL Chol/HDL Ratio, POC 3.0 Non-HDL Cholesterol, POC 99 mg/dL Cholesterol Total, POC 149 mg/dL Capillary blood 02/10/2025 1 0:31 AM CDT us Jake Grey MD POINT OF CARE TEST ORDER ENOC Final Result * Electrocardiogram Report (02/10/2025 10:21 AM CDT) us Jake Grey MD ECG ORDERABLES Edited R esult - Final from Last 3 Months Insurance MEDICARE [employer] [address] MEDICARE [employer] [facility] CHOICE PLUS [facility] HMO/PPO Address: [address] [address] [place] [address] [facility] MEDICARE RAILROAD [facility] [place] Care Teams Engraver Letter Relationship Specialty Start Date End Date Alejandro Yap MD [address] [place] [address] PCP - General Family Medicine 10/09/21 Cramelo Gant PA [address] [place] [address] Physician Gas Fitter Neurosurgery 11/07/21 Brandan Lim MD [address] [place] [id number] Consulting Physician Neurosurgery 11/07/21
--- OUTSIDE RECORDS SUMMARY | 2025-04-21 12:22 | XMS_ITS | Continuity of Care Document ---
Author Organization [facility] Address [address] [place] [address] [address] [place] [address] Phone Care Team Providers Care Manager Applied Name Role Phone Bolton OD, Chetan Unavailable Unavailable Procedures Procedure Date Cntct Lens Hydrophilic Toric Or Prism Ba llast [facility] Contact Lens Hydrophilic, Spherical [facility] Eye Exam & Treatment No Script Refraction CL Replacement - Vistakon Disp W/BW Soft [facility] CL Replacement - Vistakon Disp W/BW Soft [facility] No Charge Contact Lens Check Eye Exam & Treatment Refraction CL Replacement - Vistakon Disp W/BW Soft [facility] CL Replacement - Vistakon Disp W/BW Soft [facility] Exam & Treatment Refraction CL Replacement - Vistakon Disp W/BW Soft [facility] Advance Directives Directive Yes / No Effective Date File Name No Information Encounters Encounter Description Practice Location Reason(s) For Visit Diagnoses Date Provider Providers Copied on Encounter [facility], [address] [place] [address] [address], [place], [place], [id number], [place] tel:[phone] [facility] No Information 9-201 0 Bolton OD Chetan. [address] , [address], [place], [address], [place]. tel:[phone] [facility], [address], [place], [place], [id number], [place] tel:[phone] [facility] No Information Cliff-0 5-201 0 Bolton OD Chetan. [address] , [address], [place], [place], [facility], . tel:[phone] [facility], [id number] [place] [address] [address], [place], [place], [id number], [place] tel:[phone] [facility] No Information Nov-0 5-200 9 Bolton OD Chetan. [address] , [address], [place], [place], [facility], . tel:[phone] [facility], [address] [place] [address] [address], [place], [place], [id number], [place] tel:[phone] [facility] No Information Rylan-1 0-200 9 Bolton OD Chetan. [address] , [address], [place], [place], [facility], . tel:[phone] [facility], [address] [place] [address] [address], [place], [place], [id number], [place] tel:[phone] [facility] No Information Nov-0 5-200 8 Bolton OD Chetan. [address] , [address], [place], [facility], [place]. tel:[phone] [facility], [address], [place], [place], [id number], [place] tel:[phone] [facility] No Information Oct-2 3-200 8 Bolton OD Chetan. [address] , [address], [place], [facility], . tel:[phone] [facility], [address], [place], [place], [id number], [place] tel:[phone] [facility] No Information Oct-0 2-200 8 Bolton OD Chetan. [facility] , [address], [place], [place], [facility], . tel:[phone] [facility], [address] [place] [address] [address], [place], [place], [id number], tel:[phone] [facility] No Information Apr-0 4-200 8 Bolton OD Chetan. [address] [facility] , [address], [place], [facility], [place]. tel:[phone] [facility], [address] [place] [address] [address], [place], [place], [id number], tel:[phone] [facility] No Information Oct-1 5-200 7 Bolton OD Chetan. [facility] , [address], [place], [facility], . tel:[phone] [facility], [address] [place] [address] [address], [place], [place], [id number], tel:[phone] [facility] No Information Sep-2 7-200 7 Bolton OD Chetan. [facility] , [address], [place], [facility], . tel:[phone] [facility], [address] [place] [address] [address], [place], [place], [id number], tel:[phone] [facility] No Information May-0 2-200 7 Bolton OD Chetan. [facility] , [address], [place], [facility], . tel:[phone] Family History Family Member Type Diagnosis Age At Onset No Information Payers Payer name Insurance type Covered republican ID Authoriza tion(s) No Information Social History [...]
--- OUTSIDE RECORDS SUMMARY | 2025-04-21 12:22 | XMS_ITS | Clinical Summary ---
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 02/07/2014 Encounters Date Type Department Care Team Description 03/16/2025 2:30 PM CDT Ancillary Procedure [facility] at [address] [place] [address] Other forms of dyspnea 02/10/2025 10:30 AM CDT Office Visit [facility] [address] [facility] [address] [place] [phone] Raisa Grey MD Pure hypercholesterolemia, unspecified; Hyperlipidemia, unspecified hyperlipidemia type; Other forms of dyspnea from Last 3 Months Immunizations Immunization Administration Dates Next Due Influenza, [...] on file 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 Gender Identity Not on file Sexual Orientation [...] 02/10/2025 10:17 AM CDT Plan of Treatment Health Maintenance Due Date Last Done Comments Depression Screening 1945 Osteoporosis Screening-Bone Density Scan 1945 Hepatitis B Screening 1961 Pneumococcal vaccine 65+ (1 of 1 - PCV) 1993 Well Visit 65+ 2008 Zoster Vaccine (2 of 3) 11/07/2013 09/12/2013 Covid-19 Vaccine (5 - 2023-2 5 season) 2024 05/19/2022, 09/22/2021, 01/30/2021, Additional history exists Influenza Vaccine (Season Ended) 2025 09/22/2021, 08/29/2019, 11/18/2013 Fall Risk Assessment 02/10/2026 02/10/2025 DTaP/Tdap/Td Vaccine (2 - Td or Tdap) 05/22/2028 05/22/2018, 05/30/2014 Procedures Procedure Name Priority Date/Time Associated Diagnosis [...] PM CDT Narrative 03/17/2025 12:44 PM CDT [facility] [address] , [address], [place] [address] P:[phone] P:[phone] Echocardiographic Report Patient Name: DAYA NOVA A : 1945 Study Date: 03/16/2025 2:30:38 PM Gender: F Tech: Location: [facility] Ref Provider: RAISA GREY Height(Cm): 165 BSA: 1.82 Weight(Kg): 72.1 Heart Rate: 81 BP: 122 / 80 Quality: Good Order Provider: RAISA GREY PROCEDURES: Echocardiographic Report: Transthoracic echocardiogram with [...] FINDINGS: Interpretation Site: Exam was interpreted at [facility]. Left Ventricle: Normal left ventricular [...] Mild aortic valve regurgitation. Electronically Signed By: Raisa Grey MD, [facility] 03/17/2025 12:44:34 PM CDT Procedure Note Raisa Grey MD - 03/17/2025 [facility] [address] [facility], [address], [place] [address] P:[phone] P:[phone] Echocardiographic Report Patient Name: DAYA NOVA A : 1945 Study Date: 03/16/2025 2:30:38 PM Gender: F Tech: Location: [facility] Ref Provider: RAISA GREY Height(Cm): 165 BSA: 1.82 Weight(Kg): 72.1 Heart Rate: 81 BP: 122 / 80 Quality: Good Order Provider: RAISA GREY PROCEDURES: Echocardiographic Report: Transthoracic echocardiogram with [...] FINDINGS: Interpretation Site: Exam was interpreted at [facility]. Left Ventricle: Normal left ventricular [...] Mild aortic valve regurgitation. Electronically Signed By: Raisa Grey MD, [facility] 03/17/2025 12:44:34 PM CDT Raisa Grey MD CV ECHO PROCEDURES Final Result * POCT lipid panel (02/10/2025 10:31 AM CDT) Cholesterol, POC 149 mg/dL HDL, POC 50 mg/dL Triglycerides, POC 211 mg/dL LDL Cholesterol POC 56 mg/dL Chol/HDL Ratio, POC 3.0 Non-HDL Cholesterol, POC 99 mg/dL Cholesterol Total, POC 149 mg/dL Capillary blood 02/10/2025 1 0:31 AM CDT Raisa Grey MD POINT OF CARE TEST ORDER ENOC Final Result * Electrocardiogram Report (02/10/2025 10:21 AM CDT) Raisa Grey MD ECG ORDERABLES Edited R esult - Final from Last 3 Months Insurance MEDICARE [address] [address] MEDICARE RAILROAD [facility] CHOICE PLUS [facility] H[facility]/PPO Address: [address] [address] [place] [id number] [facility] MEDICARE RAILROAD [facility] Care Teams Tugboat Engineer Relationship Specialty Start Date End Date Alejandro Yap MD [address] [place] [address] PCP - General Family Medicine 10/09/21 Carmelo Gant PA [address] [place] [address] Physician Chemists Neurosurgery 11/07/21 Brandan Lim MD [address] [place] [address] Consulting Physician Neurosurgery 11/07/21
--- OUTSIDE RECORDS SUMMARY | 2025-04-21 12:22 | XMS_ITS | Clinical Summary ---
Author Organization [facility] [employer] Address [address] [place] [address] Care Team Providers Care Incident Response Coordinator Name Role Phone Kirill Schultz MD Primary Care Provider [phone] Jerrica Mueller RN Unavailable Source Comments [employer],non-owned Affiliates and Associated Physician Practices is amultiple site organization consisting of ambulatory clinics and hospital sitesin [place], [place], [place]. This disclosure is being madepursuant to the Care Everywhere program and may not contain all information available regarding this patient. Last updated 18.[employer] Allergies No known active allergies Medications * Be aware that medications may not be up to date on this document. Alwaysverify current medications with the patient. losartan - hydrochlorothiazide (HYZAAR) 50-12.5 MG tablet Take 1 Tab by mouth once daily. Active aspirin 81 MG tablet once daily. Active Calcium Carbonate (CALTRATE 600 PO) 2 times daily. Active fish oil/omega-3 fatty acids (FISH OIL) 1000 MG capsule Take 1,000 mg by mouth daily with food. Active Multiple Vitamin (MULTI-VITAMIN PO) Take 1 Cap by mouth once daily. Active naproxen sodium (ALEVE) 220 MG tablet Take 220 mg by mouth 2 times daily. Active hydrocodone-acetaminop hen (NORCO) 5-325 MG tablet 1-2 q 4-6 hrs prn pain 40 Tab 1 02/10/20 14 Active Additional Information Patient not taking.Reported on 04/30/2016 rosuvastatin (CRESTOR) 5 MG tablet Take 5 mg by mouth once daily Active diclofenac sodium EC (VOLTAREN) 75 MG tablet Take 1 Tab by mouth 2 times daily 60 Tab 5 05/02/20 15 Active metoprolol succinate XL 24hr (TOPROL XL) 25 MG tablet 04/10/20 16 Active CRESTOR 10 MG tablet Take 12.5 mg by mouth once daily 04/10/20 16 Active Active Problems Problem Noted Date Diagnosed Date Displacement of lumbar inter vertebral disc without myelopathy 02/07/2014 Follow-up examination, following other surgery 0 11/28/2013 Spinal stenosis, lumbar abran on, with neurogenic claudication 11/15/2013 Immunizations Immunization Administration Dates Next Due INFLUENZA VACCINE 11/18/2013 Family History Medical History Relation Name Comments [place] Father Non-contributory Mother alive Relation Name Status Comments Father (Age 72) Mother Alive Social History Tobacco Use Types Packs/Day Years Used Date Smoking Tobacco: Never Smokeless Tobacco: Never Alcohol Use Standard Drinks/Week Comments No 0 (1 standard drink = 0.6 oz pur e alcohol) Comments No Sex and Gender Information Value Date Recorded Sex Assigned at Not on file Legal Sex 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 Gender Identity Not on file Sexual Orientation Not on file Occupation Industry Job Start Date Job End Date retired Not on file Not on file Not on file Last Filed Vital Signs Vital Sign Reading Time Taken Comments Blood Pressure 136/82 02/02/2014 8:06 AM CDT Pulse 105 02/02/2014 8:06 AM CDT Temperature 36.6 C (97.8 F) 02/02/2014 8:06 AM CDT Respiratory Rate 16 02/02/2014 8:16 AM CDT Oxygen Saturation 97% 02/02/2014 8:06 AM CDT Inhaled Oxygen Concentration 94% 11/17/2013 1 1:14 AM EMPLOYMENT PROGRAM REPRESENTATIVE Weight 78 kg (172 lb) 04/30/2016 2:17 PM CDT Height 165.1 cm (5' 5) 04/30/2016 2:17 PM CDT Body Mass Index 28.62 04/30/2016 2:17 PM CDT Plan of Treatment Health Maintenance Due Date Last Done Comments BONE DENSITY TESTING 1945 DTAP/TDAP/TD VACCINES (1 - Tdap) 1962 PNEUMOCOCCAL VACCINE 50+ (1 of 1 - PCV) 1993 ZOSTER VACCINE (1 of 2) 1993 Respiratory Syncytial Virus (RSV) Vaccine Pt: or over 60 yrs (1 - 1-dose 75+ series) 2018 COVID-19 VACCINE (2023-2 5 season) 2024 DEPRESSION SCREENING 11/09/2024 INFLUENZA VACCINE (Season Ended) 2025 11/18/19 14 HEPATITIS B VACCINE Aged Out No longe r eligible based on patient's age to complete this topic HIB VACCINE Aged Out No longer eligi ble based on patient's age to complete this topic HPV VACCINE Aged Out No longer eligi ble based on patient's age to complete this topic MENINGOCOCCAL (Group B) VACC INE SHARED DECISION-MAKING Aged Out No longer eligibl e based on patient's age to complete this topic MENINGOCOCCAL GROUPS A/C/Y/W VACCINE Aged Out No longer eligible b ased on patient's age to complete this topic Medical Devices Implanted Type Area Inspector Final Assembly Electrical Device Identifier Shelf Expiration Date Model / Serial / Lot Wax Bone Implanted:Qty: 1 on 11/17/2013 at [facility] [employer] [id number] / / Wax Bone Implanted:Qty: 1 on 02/01/2014 at [facility] [employer] [id number] / / Gelfoam Plus Implanted:Qty: 1 on 02/01/2014 by Igor Ladd MD at [facility] [employer] 08/09/2015 [id number] / / [id number] Insurance [place]ICARE Advance Directives * Full Code (Latest Code Status on File) Date Activated Date Inactivated Comments 02/01/2014 2:11 PM 02/02/2014 3:20 PM * FULL RESUSCITATION Date Activated Date Inactivated Comments 11/17/2013 5:55 PM 11/18/2013 2:58 PM Care Teams Incident Response Coordinator Relationship Specialty Start Date End Date Kirill Schultz MD [address] [place] [address] PCP - General Internal Medicine 11/17/13 Jerrica Mueller, RN Air Vice Marshal 02/02/14
--- OUTSIDE RECORDS SUMMARY | 2025-04-21 12:22 | XMS_ITS | Data Portability ---
Author Organization [place] [facility] [place] [facility], Main Office Address [address] [place] [address] Care Team Providers Care Molder Floor Name Role Phone JARET DURÁN Primary Care Provider JARET DURÁN Referring Provider Assessment Encounter Date Assessment Date Assessment LastModified by Organization Details LastModified Time 09/21/2023 09/21/2023 HPI: Patient returns. She is now 2 weeks out from left anterior total hip arthroplasty. She has finished up her Celebrex and her antibiotics. She remains on Eliquis. She has finished up her oxycodone like a refill of this. She is still having quite a bit of soreness without incision a lateral distal thigh. She did note that the thigh but this was at this point is better today should have it have any significant as the foot. She is feeling that higher than the mouth as well as. She has not had much of appetite and therefore not eating much these last 2 weeks. Physical exam: Patient's incision is well healed. She has mild thigh swelling. The thigh is soft throughout the length of it. She has just a very trace swelling left ankle relative to the right. She is walking with a walker. Impression: Patient 2 weeks out left anterior total hip arthroplasty. Recommend that she work on trying to get food in her. If she has not been eating much this is going to contribute to her tired feeling. Most people will complain of this and it take time to build this back up. We did want her to use the walker for the 1st month so she will continue with that. I did refill her oxycodone today which she request. We will see her in 2 weeks with x-rays the hip at that time. Not available 09/21/2023 16:28:06 10/05/2023 10/05/2023 HPI: Patient returns. She is 1 month out from left anterior total hip arthroplasty. For chief complaint this point his fatigue. She gets very tired quickly. She has been eating well and sleeping well. She is also having some soreness at lateral hip and down the ITB and towards the knee. She has been using a walker for the 1st month but has been weight-bearing as tolerated. Has about 1 more week of Eliquis from knee. She is taking pain pills intermittently. Physical exam: Patient's incision is well healed. There is no drainage. There is a slight area of redness at the very distal lateral aspect of the incision, more soft tissue area. There is no tenderness palpation of this area. There is no warmth noted. Thigh is soft. No increased swelling in either lower extremity. Impression: Patient is 1 month out left anterior total hip arthroplasty. She is concerned about her fatigue. She may still be anemic for surgery we talked about this. She would like to get a CBC to know where her blood count is in will give her an order for that today. I reminded her that she is 78 and is going to take time for her to recover from a big operation as well. The majority of her patient is 1 month out from hip replacement do complain of fatigue. It should improve with time. She will finish up her Eliquis. She can transition to the cane at this point. We will see her back in a month to reassess how she is doing. Not available 10/05/2023 15:27:52 10/12/2023 10/12/2023 HPI: Patient is now about 5 weeks out from her left anterior total hip arthroplasty. Ten days ago she had increased swelling and was sent for a venous duplex ultrasound after being seen in the office. This was negative. She has had continuing swelling left lower extremity. She was in the emergency room last Yunior, 3 days ago, and was told that she had cellulitis and was started on Keflex. They did not do another venous duplex ultrasound. Patient called us to let us know that this happened. I want to see her today for evaluation. Physical exam: Patient has [id number] swelling in the ankle none in the calf or pretibial today. She has mild swelling in the foot. She does have some wrinkles in the skin in the foot. There is no redness or warmth about the lower extremity. She is walking with a walker. She is still complaining of soreness around the hip especially with certain motion. Incision is well healed. Impression: Patient has continued swelling in left lower extremity 5 weeks out left anterior total hip arthroplasty. She has had 1 venous duplex ultrasound was negative. And she has continued swelling in the left lower extremity. I have recommended getting another venous duplex ultrasound. I think if she has to done this would fully rule out DVT. She is still on the Eliquis has a couple more days from her 5 week regimen postop. I strongly advised her to elevate the foot. She needs to have the foot higher than the heart. She should be on the bed with the couch with her foot on 3 pillows for at least the next 24 hours to 48 hours to get the swelling down. She is going to continue with the Keflex. They gave her 1 week of antibiotic which I think will be fine. Again today I see no evidence of cellulitis in the leg. This just looks like typical swelling that will occur postop if the patient has been elevating enough. We will see her in a week for re-evaluation. Not available 10/12/2023 17:22:07 10/19/2023 10/19/2023 Impression: Patient developed a significant DVT in the larger veins of the left leg diagnosed 5 weeks after left hip replacement. She had been on Eliquis 2.5 mg twice daily the entire time. She is now on therapeutic dosing. She does feel little bit stronger and feels that she is ready to start using a cane I would like her to use a cane the right hand. 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 I would recommend she practice her walking as the primary mode of therapy at this time. I will see her back in 1 month to assess her progress. At some point it may be helpful for her to utilize some compressive hose which will reduce the edema in left leg and reduce the discomfort associated with that edema. With her significant blood clot however I am not sure when that will be appropriate and safe and I would like her to ask Dr. Suarez when he feels that would be appropriate. [email or web address] Not available 11/03/2023 18:35:38 11/16/2023 11/16/2023 HPI: Patient is leaning more than 2 months out from left anterior total hip arthroplasty. She remains on the Eliquis due to DVT that developed postoperatively. She is still dealing with fatigue but she feels that this has improved quite a bit the last 3-4 days. She still gets a little bit of swelling particularly in the left lower extremity which is the leg she has a DVT and. She has been using compression socks on a regular basis and this seems to help. She has little bit of soreness around the hip but otherwise she has been a lot more comfortable. Physical exam: Patient is walking with a cane today. She is walking very normally without limp. She is not really needing a cane to ambulate. She has mild swelling in the left lower extremity no in the right. Impression: Patient is doing very well 2 months out left anterior total hip arthroplasty. We discussed about the fatigue she is having this will improve with time. She will continue with the Eliquis. She is going to be following up with her primary care doctor with regard to the DVT. She is going to be on Eliquis for at least 3 months. We talked about repeating the ultrasound and patient wants to have this done and she will discuss this with her primary care doctor at the 3 month roney. Otherwise she is doing well and should continue to improve with time. She may increase activities as tolerated. We will plan on seeing her back at her 1 year anniversary or sooner if she has problems Not available 11/16/2023 16:36:24 Plan of Treatment Reminders Order Date Submit Date Provider Last Modified By Organization Details Last Modified Time Details Appointments None recorded. Lab None recorded. Referral None recorded. Procedures None recorded. Surgeries None recorded. Imaging XR, hip + pelvis, unilateral 2022 023 [email or web address] [facility] [place], [facility] [facility] [address], [place], [address], 15:03:50 Medication Orders oxycodone 5 mg tablet 2022 023 [facility] [facility], [place], [address], 16:28:58 Patient TargetsNo targets recorded. Patient InstructionsNo instructions recorded. Reason for Referral None Reported. Results Created Date Observation Date Name Description Value Unit Range Abnormal Flag Note LastModifiedBy Organization Detail LastModifiedTime 09/01/2008/18/2023 elect derrick keiko am No observ ation record ed. [email or web address] Not Available 2022 12:22:27 09/07/20 23 09/07/2023 XR, hip, unila teral No observ ation record ed. [address], [place], [address], 09/07/2023 13:00:33 09/07/2009/07/2023 XR, hip + pelvi s, unila teral No observ ation record ed. [address], [place], [address], 09/08/2023 10:02:12 09/11/20 23 06/05/2023 trans esoph ageal echoc ardio gram guide d cardi overs ion (PROC ) No observ ation record ed. [email or web address] Not Available 2022 11:53:56 09/25/2009/25/2023 US, racheal cole s, lower extre mity No observ ation record ed. [address], [place], [address], 09/28/2023 09:24:21 10/05/20 XR, hip + pelvi s, unila teral No observ ation record ed. [facility] [place] [address] [facility] [address], [place], [address], 10/05/2023 15:25:22 10/12/20 23 10/12/2023 US, racheal cole s, lower extre mity No observ ation record ed. [address] [facility] [address], [place], [address], 10/13/2023 13:13:09 10/12/2010/12/2023 US, duple x, venou s, lower extre mity No observ ation record ed. [facility] [address], [place], [address], 10/13/2023 09:40:30 10/19/2010/09/2023 XR, ankle No observ ation record ed. [email or web address] Not Available 2022 18:14:47 Result Notes None recorded. Problems Name Problem SNOMED Code Status Onset Date Resolution Date Notes Provider Name and Address Organization Details Recorded Time Disorder of trunk 544961642 Active Not Available [facility] 3 13:52:44 Localized, primary osteoarthr itis of the pelvic region and thigh 729584508 Active Not Available [facility] 3 13:52:44 Osteoarthr itis of hip 589133101 Active Not Available [facility] 3 13:52:44 Osteoarthr itis of knee 248676250 Active Not Available [facility] 3 13:52:44 Enthesopat hy of hip region 26573278 Active Not Available [facility] 3 13:52:44 Pain of left hip joint 6465084511554 00 Active 2021 Not Available [facility] 3 13:52:44 Pain of hip region 62323865 Active Not Available [facility] 3 13:52:44 Osteoarthr itis 887706839 Active 2022 DEANDRA Mitchell null, [place] [facility] 3 09:28:58 Osteoarthr itis of left hip joint 4952847775615 08 Active 2022 DEANDRA Mitchell null, [place] [facility] 3 15:55:43 Edema of lower extremity 887259378 Active 2022 Christa Pascal CMA null, [place] [facility] 3 13:39:39 Anemia 843435737 Active 2022 Christa Pascal, SHAYY null, [place] [facility] 15:26:21 Problem Notes None recorded. Procedures Surgical History Date Name Laterality Status Provider Name and Address Organization Details Recorded Time Lumbar Spine Surgery completed Not Available [facility] 01/07/2023 13:52:11 total replacement of hip completed Not Available [facility] 01/07/2023 13:52:11 Imaging Results None recorded. Procedure Notes None recorded. Medical Equipment None Reported. Allergies No known drug allergies Medications Name Sig Start Date Stop Date Status Note LastModified by Organization Details LastModified Time celecoxib 200 mg capsule 10/08 completed Not Available Not Available Not Available clindamycin HCl 300 mg capsule TAKE 1 CAPSULE BY MOUTH EVERY 6 HOURS FOR 7 DAYS active Not Available Not Available No t Available hydrocodone 5 mg-acetamin ophen 325 mg tablet 10/08 completed Not Available Not Available Not Available meloxicam 15 mg tablet active Not Available Not Available Not Available valsartan 80 mg tablet Take 1 tablet every day by oral route. 06/08 completed Not Available Not Available Not Available tramadol 50 mg tablet 10/08 completed Not Available Not Available Not Available valsartan 80 mg-hydrochl orothiazide 12.5 mg tablet TAKE 1 TABLET BY MOUTH ONCE DAILY active Not Available Not Available No t Available meloxicam 7.5 mg tablet TAKE 1 TABLET BY MOUTH ONCE DAILY 09/21 completed Not Available Not Available Not Available oxycodone-a cetaminophe n 5 mg-325 mg tablet 10/08 completed Not Available Not Available Not Available diazepam 2 mg tablet 10/08 completed Not Available Not Available Not Available cephalexin 500 mg capsule TAKE 1 CAPSULE BY MOUTH EVERY 6 HOURS FOR 7 DAYS 10/19 completed Not Available Not Available Not Available orphenadrin e citrate ER 100 mg tablet,exte nded release TAKE 1 TABLET BY MOUTH TWICE DAILY NEEDED active Not Available Not Available No t Available methimazole 5 mg tablet 10/08 completed Not Available Not Available Not Available diclofenac sodium 75 mg tablet,amado yed release 10/08 completed Not Available Not Available Not Available metoprolol succinate ER 25 mg tablet,exte nded release 24 hr TAKE 1 TABLET BY MOUTH ONCE DAILY active Not Available Not Available No t Available methylpredn isolone 4 mg tablets in a dose pack TAKE BY MOUTH DIRECTED ON INSIDE OF PACKAGE active Not Available Not Available No t Available losartan 50 mg-hydrochl orothiazide 12.5 mg tablet 10/08 completed Not Available Not Available Not Available celecoxib 100 mg capsule TAKE 1 CAPSULE BY MOUTH ONCE DAILY 09/21 completed Not Available Not Available Not Available cefdinir 300 mg capsule TAKE 1 CAPSULE BY MOUTH EVERY 12 HOURS 09/21 completed Not Available Not Available Not Available fluticasone propionate 50 mcg/actuati on nasal spray,suspe nsion 10/08 completed Not Available Not Available Not Available oxycodone 5 mg tablet TAKE 1 TABLET BY MOUTH 4 TIMES DAILY NEEDED FOR PAIN active Not Available Not Available No t Available Asprin Ec Low Dose 81 mg tablet,amado yed release Take 1 tablet every day by oral route. 09/21 completed Not Available Not Available Not Available moxifloxaci n 0.5 % eye drops 10/08 completed Not Available Not Available Not Available rosuvastati n 10 mg tablet TAKE 1/2 (ONE-HALF ) TABLET BY MOUTH ONCE DAILY active Not Available Not Available No t Available bupropion HCl XL 150 mg 24 hr tablet, extended release TAKE 1 TABLET BY MOUTH IN THE MORNING active Not Available Not Available No t Available nitrofurant oin monohydrate /macrocryst als 100 mg capsule 10/08 completed Not Available Not Available Not Available calcium 2021 active Not Available Not Available Not Avai lable multivitami n 10/05 completed Not Available Not Available Not Available PreserVisio n AREDS 2021 active Not Available Not Available Not Avai lable Durezol 0.05 % eye drops 10/08 completed Not Available Not Available Not Available Xarelto 10 mg tablet 10/08 completed Not Available Not Available Not Available metoprolol succ 25 mg-hydrochl orothiazide 12.5 mg tablet,ext. rel 24 hr Take 1 tablet every day by oral route. 06/08 completed Not Available Not Available Not Available Myrbetriq 25 mg tablet,exte nded release 10/08 completed Not Available Not Available Not Available Myrbetriq 50 mg tablet,exte nded release TAKE 1 TABLET BY MOUTH ONCE DAILY 09/21 completed Not Available Not Available Not Available Ilevro 0.3 % eye drops,suspe nsion 10/08 completed Not Available Not Available Not Available Eliquis 5 mg tablet TAKE 1 TABLET BY MOUTH TWICE DAILY. TO START AFTER COMPLETIN G THE FIRST WEEK OF ELIQUIS active Not Available Not Available No t Available Eliquis 2.5 mg tablet TAKE 1 TABLET BY MOUTH EVERY 12 HOURS 10/19 completed Not Available Not Available Not Available Vitals Date Recorded Body height Provider Name an d Address Organization Details Last Updated DateTime 11/16/2023 160.02 cm Melina Esqueda [facility] 11/16/2023 15:51:28 Date Recorded Body height Provider Name an d Address Organization Details Last Updated DateTime 09/21/2023 160.02 cm Melina Esqueda [facility] [employer] 09/21/2023 15:54:29 Date Recorded Body height Provider Name an d Address Organization Details Last Updated DateTime 10/05/2023 160.02 cm Melina Esqueda [facility] [employer] [facility] 10/05/2023 14:50:11 Date Recorded Body height Provider Name an d Address Organization Details Last Updated DateTime 10/12/2023 160.02 cm Melina Esqueda [facility] [employer] [facility] 10/12/2023 16:02:51 Date Recorded Body height Provider Name an d Address Organization Details Last Updated DateTime 10/19/2023 160.02 cm Melina Esqueda [facility] [employer] [facility] 10/19/2023 16:35:31 Social History None recorded. Functional Status Question Answer Note LastModified by Organizat ion Details LastModified Time What is your level of alcohol consumption? None [id number] Information not available 01/07/2023 Mental Status None recorded. Family History Relationship Description Onset Age of this Age Resolved Age Notes LastModified by Organization Details LastModified Time Father Heart disease [id number] Not available 01/07/2023 13:52:12 Father Hypertensive disorder [email or web address] Not available 2022 15:19:30 Medical History Condition Response BLINDNESS N KIDNEY STONES N MRSA N CARPAL TUNNEL SYNDROME N LUNG DISEASE/DISORDER N HISTORY OF DRUG ABUSE N RADIATION / CHEMOTHERAPY N COPD N SPORTS INJURY N ANKLE PAIN N BLOOD DISEASES N SCHIZOPHRENIA N SHINGLES N SHOULDER PAIN N BOWEL PROBLEMS N DEPRESSION (INCLUDING POST ) N STROKE/TIA N ULCERS N KNEE PAIN N BENIGN PROSTATIC HYPERPLASIA N OBESITY N GERD/NAUSEA N ANEURYSM N URINARY/BLADDER/KIDNEY PROBLEMS Y CORONARY ARTERY DISEASE (CAD) N ADDICTION CONCERNS N USE OF BLOOD THINNERS N SKIN PROBLEMS N EMPHYSEMA N MUSCLE,JOINT OR BONE PROBLEMS N DVT N STOMACH ULCERS N BLOOD CLOTS N USE OF NSAIDS N CONCUSSION OR SPINAL TRAUMA N NEUROPATHY N AIDS/HIV N FRACTURES N HYPERTENSION Y ELBOW PAIN N TOURETTE'S N Metal allergy N ANXIETY DISORDER N BLOOD TRANSFUSION N ANEMIA/BLOOD DISORDER N BIPOLAR DISORDER N BRONCHITIS N OSTEOARTHRITIS N TUBERCULOSIS N FOOT PROBLEM N HEART VALVE DISORDERS N ALLERGIES/HAYFEVER N SOFT TISSUE INJURY N INFECTIOUS DISEASE N HEART ARRHYTHMIA N INSOMNIA N HIGH CHOLESTEROL / HYPERLIPIDEMIA N RHEUMATOID ARTHRITIS N EDEMA N CHRONIC PAIN SYNDROME N CAROTID BLOCKAGE N BACK / NECK PROBLEMS N HAVE YOU BEEN HOSPITALIZED OR SEEN IN [facility] IN THE PAST YEAR ? N BURSITIS N HERNIATED DISC N DIALYSIS N FIBROMYALGIA N OSTEOPOROSIS N ARTHRITIS Y NO SIGNIFICANT PAST MEDICAL HISTORY N PERIPHERAL NEUROPATHY N DIABETES, TYPE N HEARTBURN / REFLUX N HEPATITIS / LIVER DISEASE N GOUT N ALZHEIMER'S DISEASE N SLEEP DISORDER N HERPES N HEADACHES/MIGRAINES N SEIZURES/EPILEPSY N VASCULAR DISEASE N Blood Disorder N HIP PAIN N DIZZINESS N HEAD TRAUMA OR INJURY N HEART DISEASE/HEART PROBLEMS N MULTIPLE SCLEROSIS N CANCER: SPECIFY N CARDIAC ARRHYTHMIA N ANESTHESIA COMPLICATIONS N ATRIAL FIBRILLATION N AUTOIMMUNE DISEASE N Gynecological HistoryNo gynecological history recorded. Obstetrics History GPAL:G 0 P 0 0 0 0 Past Encounters Encounter ID Performer Location Encounter Start Date Encounter Closed Date Diagnosis/Indication Diagnosis SNOMED-CT Code Diagnosis ICD10 Code Diagnosis Note [id number] Darian Osman MD [place] [place] [address] [place] [address] 04/30/2022 00:00:00 04/30/2022 11:49:39 [id number] Darian Osman MD [place] [place] [address] [place] [address] 11/17/2022 00:00:00 11/19/2022 09:20:49 [id number] Darian Osman MD [facility] [place] [address] [place] [address] 04/27/2023 15:16:57 05/11/2023 09:32:05 Pain of left hip joint 5608548271 45007 M25.552 [id number] Darian Osman MD [facility] [place] [address] [place] [address] 06/08/2023 15:02:12 06/10/2023 14:01:43 Pain of left hip joint 7161521008 41370 M25.834 [id number] MD [facility] [place] [address] [place] [address] 08/28/2023 09:24:20 08/31/2023 11:59:41 Osteoarthritis 124855983 M16.12 [id number] Darian Osman MD [facility] [place] [address] [place] [address] 09/21/2023 15:51:18 09/21/2023 16:30:43 Osteoarthritis of left hip joint 2137440014 18490 M16.12 [id number] Darian Osman MD [facility] [place] [address] [place] [address] 10/05/2023 14:48:12 10/05/2023 15:40:43 Pain of left hip joint 6769659672 29370 M25.524 [id number] Darian Osman MD [facility] [place] [address] [place] [address] 10/12/2023 15:58:26 10/12/2023 17:23:32 History of total replacement of left hip joint 1587008912 766409 Z96.569 [id number] Darian Osman MD [facility] [place] [address] [place] [address] 10/19/2023 16:02:18 11/04/2023 15:12:56 History of total replacement of left hip joint 2249984660 078835 Z96.152 [id number] Darian Osman MD [facility] [place] [address] [facility] [address] [place] [address] 11/16/2023 15:49:41 11/16/2023 16:40:08 History of total replacement of left hip joint 4221891748 867198 Z96.642 Health Concerns Section Related Observation LastModified by Organization Detai ls LastModified Time None Recorded Concern Status LastModified by Organization Details LastModified Time None Recorded Advance Directives Directive None Recorded Payers Insurance Date Sequence Insurance Name Policy Number Policy Moncada Covered Member ID Moncada Member ID Guarantor Name 09/09/2024 [address] [facility] MEDICARE-[address] JAIL BOARD (MEDICARE) Daya Nova [id number] Daya Nova 09/09/2024 2 [facility] (POS) [id number] Toro Nova [id number] Daya Nova Notes Date Note Type Note Provider Name and Address Organization Details Recorded Time 10/19/2023 text/html Patient returns now 6 weeks after left total hip arthroplasty. At last visit 1 week ago she was noted have diffuse significant swelling in the left lower extremity and a venous duplex ultrasound was recommended. She had had a previous negative venous duplex ultrasound but the swelling was very suspicious. She had gone to the emergency room on the 09 of October with swelling of the foot and ankle and had x-rays the foot and ankle which were unremarkable. Repeat venous duplex ultrasound showed extensive DVT involving the femoral veins. She was placed on Eliquis 10 mg twice daily and she has 2 more days of this and then she will be on 5 mg twice daily. She is going to follow up with doctors are min. while in the emergency room she had a CT angiogram of the chest which was negative for pulmonary embolism. Darian Osman MD [address] [place] [address], [place] [address], [place], [address], [place] [facility] [place] [facility] 11/03/2023 18:36:15 OBGyn Episode No OBEpisode recorded.
--- NOTE | 2025-04-21 12:44 | ED_ITS ---
HPI - Fall General Chief Complaint: Fall Stated Complaint: glf Time Seen by Provider: 04/21/25 12:03 History of Present Illness HPI Narrative: 79-year-old female presenting for a ground level mechanical fall in [facility]. Patient states that she was running in all and felt her shoe fly off and she fell forward. She landed on her nose and face. Did not lose consciousness and was able to get up right away. Notice some swelling to the nose and minor bleeding. She also notes some left-sided rib cage pain but felt like this was not related as she did not strike her chest on anything. Denies losing consciousness, not any blood thinner medications, ambulatory without difficulty. Patient denies any symptoms such as visual deficits, inability to move the eyes, nasal drainage, epistaxis, blood in the oropharynx, neck stiffness, neck pain, back pain, fever, chills, chest pain, shortness a breath. Related Data Home Medications ?Medication ?Instructions ?Recorded ?Confirmed ?Last Taken ?Type calcium 600 mg (as 1 tablet PO DAILY 06/17/22 02/16/25 09/06/23 History carbonate)-vitamin D3 20 mcg (800 unit) tablet mv-mn-folic 200 mcg-vit K 15 1 cap PO DAILY 11/04/23 02/16/25 Unknown History mcg-lutein 5 mg-zeaxanthin 1 mg capsule (PreserVision AREDS 2 Plus Multivit) aspirin 81 mg capsule 81 mg PO DAILY 04/13/24 02/16/25 Unknown History multivitamin 1 tablet PO DAILY 04/13/24 02/16/25 Unknown History Allergies Allergy/AdvReac Type Severity Reaction Status Date / Time clindamycin Allergy Intermediate Rash Verified 02/16/25 12:56 pentazocine Allergy Unknown Unknown - Verified 02/16/25 12:56 UNABLE TO RECALL Review of Systems Review of Systems: As reviewed above in HPI [facility] Past Medical History Medical History Left femoral vein DVT Hyperlipidemia Hypertension Bladder incontinence Surgical History Surgical History History of bilateral cataract extraction History of total left hip arthroplasty (08/2023) History of total right hip arthroplasty (2015) History of lumbar surgery decompression / microdiscectomy/ decompression-microdiscectomy X3 surgeries History of laparoscopic cholecystectomy History of hysterectomy with oophorectomy Family History Family History Mother Family history of malignant neoplasm of breast in first degree relative, Onset Age: 70 Breast cancer Father Acute myocardial infarction Sibling No problems noted. Other Family history of cardiovascular disease Family history of hearing loss Family history of malignant neoplasm of breast Family history of mental disorder Social History Social History Social History: Surrogate medical decision maker: Toro Nova, spouse. Code status: Full code. Smoking status: Never smoker Second hand tobacco smoke exposure: No Alcohol intake: never Substance use: never Substance use type: does not use Do You Feel Safe in your Home?: Yes Lack of Transportation: No Lack of Food: Never True Current Housing: I Have Housing Concerned About Future Housing: No Difficulty Paying Gas/Electric Bills: No Difficulty Paying for Meds: No Currently Unemployed: No Education: Associate Degree Difficulty w/ Childcare or Family Care: No Living arrangements: with family Additional living arrangements comments: Lives with spouse in [place]. Occupation/Education: retired Additional occupation/education comments: Retired registered [employer] Gender identity (if verbalized by the patient): Female Spiritual care concerns: No Agree to blood products: Yes Exam Narrative: GENERAL: [Well-appearing, well-nourished, and in no acute distress.] HEAD: [Normocephalic, atraumatic.] EYES: [PERRLA and EOMI.] ENT: Nasal bridge deformity with a small overlying 1.0 cm laceration that is very superficial, minor oozing of blood. No epistaxis in the naris. Periorbital hematomas are noted on the left side and around the nasal bone structure but no crepitus. Palpable tenderness to palpation. NECK: Supple. CHEST: [Clear to auscultation. No respiratory distress.] HEART: [Regular rate and rhythm]. No murmur heard. [Normal peripheral pulses.] ABDOMEN: [Soft, nondistended], [nontender], [No rigidity or guarding] EXTREMITIES: Normal range of motion. [No edema.] SKIN: Warm, dry, no rash. NEURO: [No focal deficits]. Alert and oriented [x3.] PSYCH: [Normal mood and affect.] Course Vital Signs Vital signs: Vital Signs Temperature 36.6 C 04/21/25 11:31 Pulse Rate 87 04/21/25 11:31 Respiratory Rate 18 04/21/25 11:31 Pulse Oximetry 98 04/21/25 11:31 Oxygen Delivery Room Air 04/21/25 11:31 Temperature 36.6 C 04/21/25 11:31 Pulse Rate 87 04/21/25 11:31 Respiratory Rate 18 04/21/25 11:31 Pulse Oximetry 98 04/21/25 11:31 Oxygen Delivery Room Air 04/21/25 11:31 Procedures Laceration Laceration 1: Date: 04/21/25 Time: : Site: face Size (cm): 1.0 Description: linear and clean Depth: simple, single layer Local Anesthetic: none Pre-repair: wound explored and irrigated ====== Skin Level ====== Skin layer closed with: dermabond and steri strips ====== Subcutaneous Layer ====== ====== Muscle Layer ====== ====== Tendon Layer ====== Dressing: steristrips MDM - Fall MDM Narrative Medical decision making narrative: 79-year-old female presenting after mechanical fall with facial trauma. Patient did not lose consciousness and otherwise appears well in her normal state of health. Denies any blood thinner use. Normal set of vitals. Examination reveals nasal bridge deformity with a small overlying 1.0 cm laceration that is very superficial, minor oozing of blood. No epistaxis in the naris. Periorbital hematomas are noted on the left side and around the nasal bone structure but no crepitus. Palpable tenderness to palpation. Patient's tetanus will be updated here, CT scans of the maxillary facial structures, neck and head were obtained. Low suspicion for intracranial pathology given lack of loss of consciousness or neurological deficits on exam. Suspect probable nasal bone fractures with minor or no displacement. Laceration is superficial and will be repaired with Dermabond. Patient requested ibuprofen for pain which was provided. Discussed with her ENT follow-up upon workup here and she was comfo rtable with the plan. CT scan shows mildly displaced bilateral nasal bone fractures end of the anterior nasal septum. Moderate spondylosis of the cervical spine without any fractures or dislocations. No acute osseous abnormality there. CT of the head shows no calvarial fractures or acute intracranial process. X-rays of the ribs showed no displaced fractures. Patient's wound was repaired, patient will be following up with ENT for her nasal bone fractures and provided prescriptions for pain control medications upon discharge. Patient's questions answered she was safely discharged. Medical Records Attestation: I reviewed the patient's medical records. Imaging Data Attestation: I personally reviewed and interpreted this imaging study as follows: My impression: Impressions Head CT 04/21/25 12:40 IMPRESSION: 1. No calvarial fracture or acute intracranial process. 2. Acute bilateral nasal bone fractures. 3. Moderate scattered cerebral white matter hypoattenuation consistent with chronic small vessel ischemic disease. Ribs X-Ray 04/21/25 12:52 IMPRESSION: 1:No acute displaced rib fractures. Head/Cervical Spine/Facial Bones CT 04/21/25 12:53 IMPRESSION: 1. Mild rightward displacement and attenuation comminuted fractures of the bilateral nasal bones and of the anterior nasal septum. 2. Moderate to severe cervical spondylosis with no acute osseous abnormality. Discharge Plan Discharge Clinical Impression: Nasal bone fractures, CHI (closed head injury) Patient Disposition: Home Condition: Stable Instructions: Antibiotic Form, Nasal Fracture (ED), Concussion (ED), Contusion in Adults (ED), Skin Adhesive Care (ED), Skin Adhesive Strips (ED) Patient Language: Georgian Prescriptions: New acetaminophen [Tylenol Extra Strength] 500 mg tablet 1,000 mg PO TID PRN (Reason: pain) Qty: 30 0RF ibuprofen 600 mg tablet 600 mg PO TID PRN (Reason: pain) Qty: 20 0RF No Action aspirin 81 mg capsule 81 mg PO DAILY multivitamin Tablet 1 tablet PO DAILY valsartan-hydrochlorothiazide 160-25 mg tablet 1 tablet PO DAILY Qty: 90 1RF diclofenac potassium 50 mg tablet 50 mg PO BID PRN (Reason: pain) Qty: 30 0RF PreserVision AREDS 2 Plus MV 200 mcg-15 mcg- 5 mg-1 mg capsule 1 cap PO DAILY calcium carbonate-vitamin D3 600 mg-20 mcg (800 unit) tablet 1 tablet PO DAILY amlodipine 5 mg tablet See Rx Instructions .ROUTE .COMPLEX Qty: 90 1RF Dose Instruction: Take 1 tablet by mouth once daily Rx Instructions: Take 1 tablet by mouth once daily rosuvastatin 10 mg tablet 5 mg PO DAILY Qty: 45 2RF bupropion HCl 150 mg tablet extended release 24 hr 150 mg PO QAM Qty: 30 3RF metoprolol succinate 25 mg tablet extended release 24 hr See Rx Instructions .ROUTE .COMPLEX Qty: 90 3RF Dose Instruction: Take 1 tablet by mouth once daily Rx Instructions: Take 1 tablet by mouth once daily Follow-up/Referrals: Narayan Noel MD [Physician] - 1 Week (Nasal bone fractures) Tres Brown MD [Physician] - 1 Week (Nasal bone fractures) Alejandro Yap MD [Primary Care Provider] - Time of Disposition: 13:36
[2025-04-21 13:12] VITALS: BP 165/83; O2SAT 99
[2025-04-21] MEDS: TETANUS,DIPHTHERIA,AC PERTUSSIS ADULT (0.5 ML) BOOSTRIX IM (13:25)
[2025-04-21 13:31] VITALS: BP 143/72; O2SAT 95
--- NOTE | 2025-04-21 13:43 | PC.NURSE ---
RN cleaned nose abrasion/lac with saline and gauze. Sterri strips and glue in room waiting for .
[2025-04-21] MEDS: IBUPROFEN 600 MG TABLET PO (13:52)
== END 2025-04-21 13:59 | disposition home or self-care (01) ==
PROVIDERS: Emergency Provider Student in an Organized Health Care Education/Training Program; PCP Family Medicine Adolescent Medicine
DX: S02.2XXA Fracture of nasal bones, initial encounter for closed fracture (principal); S01.21XA Laceration without foreign body of nose, initial encounter; Z23 Encounter for immunization; I10 Essential (primary) hypertension; E78.5 Hyperlipidemia, unspecified; Z86.718 Personal history of other venous thrombosis and embolism; Z98.42 Cataract extraction status, left eye; Z98.41 Cataract extraction status, right eye; Z96.643 Presence of artificial hip joint, bilateral; Z90.49 Acquired absence of other specified parts of digestive tract; Z90.710 Acquired absence of both cervix and uterus; M47.812 Spondylosis without myelopathy or radiculopathy, cervical region; Z79.82 Long term (current) use of aspirin; Z79.899 Other long term (current) drug therapy; W18.39XA Other fall on same level, initial encounter
CPT/HCPCS: 12011; 70450; 70486; 71100; 72125; 90471; 90715; 99284; A9270

== ENCOUNTER 2025-04-24 19:16 | Emergency (ER) | payer MEDICARE, OTHER, SELFPAY ==
[2025-04-24 19:26] VITALS: BP 138/82; PULSE 84; RESP 16; TEMP 37; O2SAT 98
--- NOTE | 2025-04-24 19:33 | ED_ITS ---
HPI - Skin/Abscess/Foreign Bdy General Chief complaint: Skin/Abscess/Foreign Body Stated complaint: Rash Source: patient Mode of arrival: ambulatory Limitations: no limitations History of Present Illness HPI narrative: Patient is an 79 year old female who presents to the clinic with complaints of insect bites throughout her body x 1 day. She states that she was sitting outside last night and felt like she was being bit by mosquitos. Denies any fevers, body aches, or chills. Related Data Home Medications ?Medication ?Instructions ?Recorded ?Confirmed ?Last Taken ?Type calcium 600 mg (as 1 tablet PO DAILY 06/17/22 02/16/25 09/06/23 History carbonate)-vitamin D3 20 mcg (800 unit) tablet aspirin 81 mg capsule 81 mg PO DAILY 04/13/24 02/16/25 Unknown History [id number]-vit V-[id number]-fpcmmcu PO 04/24/25 Unknown History Allergies Allergy/AdvReac Type Severity Reaction Status Date / Time clindamycin Allergy Intermediate Rash Verified 04/24/25 19:31 pentazocine Allergy Unknown Unknown - Verified 04/24/25 19:31 UNABLE TO RECALL Review of Systems Review of Systems: CONSTITUTIONAL: Denies body aches, fever, chills, or sweats. EYES: Denies visual changes, redness, or discharge. ENT: Denies rhinorrhea, congestion CARDIOVASCULAR: Denies chest pain, palpitations, or edema. RESPIRATORY: Denies cough or dyspnea. GASTROINTESTINAL: Denies abdominal pain, nausea, vomiting, or diarrhea. SKIN: ?Reported insect bites throughout body. MUSCULOSKELETAL: Denies back pain, joint pain, or myalgia. NEUROLOGIC: Denies headache, numbness, tingling, or weakness. All systems reviewed & are unremarkable except as noted in HPI and below PMFSH Past Medical History Medical History Left femoral vein DVT Hyperlipidemia Hypertension Bladder incontinence Surgical History Surgical History History of bilateral cataract extraction History of total left hip arthroplasty (08/2023) History of total right hip arthroplasty (2015) History of lumbar surgery decompression / microdiscectomy/ decompression-microdiscectomy X3 surgeries History of laparoscopic cholecystectomy History of hysterectomy with oophorectomy Family History Family History Mother Family history of malignant neoplasm of breast in first degree relative, Onset Age: 70 Breast cancer Father Acute myocardial infarction Sibling No problems noted. Other Family history of cardiovascular disease Family history of hearing loss Family history of malignant neoplasm of breast Family history of mental disorder Social History Social History Social History: Surrogate medical decision maker: Toro Nova, spouse. Code status: Full code. Smoking status: Never smoker Second hand tobacco smoke exposure: No Alcohol intake: never Substance use: never Substance use type: does not use Do You Feel Safe in your Home?: Yes Lack of Transportation: No Lack of Food: Never True Current Housing: I Have Housing Concerned About Future Housing: No Difficulty Paying Gas/Electric Bills: No Difficulty Paying for Meds: No Currently Unemployed: No Education: Associate Degree Difficulty w/ Childcare or Family Care: No Living arrangements: with family Additional living arrangements comments: Lives with spouse in [place]. Occupation/Education: retired Additional occupation/education comments: Retired registered nurse- [employer] Gender identity (if verbalized by the patient): Female Spiritual care concerns: No Agree to blood products: Yes Comments At time of signature, I have reviewed and agree with nursing past medical, surgical, social and family history unless otherwise noted. Please see nursing chart for further information. There is no relevant family history pertinent to the presenting complaint. Exam Narrative: GENERAL: Well-appearing HEAD: Normocephalic, atraumatic. EYES: ?conjunctivae clear, and EOMI. ENT: Mucous membranes moist. Oropharynx without edema, erythema or lesions. NECK: Supple. No lymphadenopathy CHEST: Clear to auscultation. HEART: Regular rate and rhythm. SKIN: Warm, dry. ?Scattered erythematous raised welts c/w insect bites noted to trunk and extremities. NEURO: ?Alert and oriented x3.? Course Course Level of Care: Express Care Visit Vital Signs Vital signs: Vital Signs Temperature 98.6 F 04/24/25 19:26 Pulse Rate 84 04/24/25 19:26 Respiratory Rate 16 04/24/25 19:26 Blood Pressure 138/82 04/24/25 19:26 Pulse Oximetry 98 04/24/25 19:26 Oxygen Delivery Room Air 04/24/25 19:26 Temperature 98.6 F 04/24/25 19:26 Pulse Rate 84 04/24/25 19:26 Respiratory Rate 16 04/24/25 19:26 Blood Pressure 138/82 04/24/25 19:26 Pulse Oximetry 98 04/24/25 19:26 Oxygen Delivery Room Air 04/24/25 19:26 Reviewed MDM - Skin/Abscess/Foreign Bdy MDM Narrative Medical decision making narrative: Discussed physical exam findings. Steroid given for inflammation. Advised supportive measures and signs/symptoms to go to the ER. Pt is appropriate for outpatient treatment and follow up. Differential Diagnosis Differential diagnosis: Likely cellulitis, insect bites and contact dermatitis Critical Care Time Critical Care Time Critical Care Time: No Discharge Plan Discharge Clinical Impression: Insect bite Patient Disposition: Home Condition: Stable Instructions: Antibiotic Form, Insect Bite or Sting (ED) Additional Instructions: Take steroid as prescribed. Use rase-nrt-xbawqvw hydrocortisone cream. Clean with soap and water only; Avoid using alcohol and peroxide. Apply ice to area 15 minutes on 15 minutes off Please schedule a follow up visit with your personal physician for further evaluation and treatment within 3-5days OR if your symptoms persist, change or worsen significantly before you can contact your personal physician then please, without delay, go to the emergency department for further evaluation. If you experience any worsening redness, swelling, streaking (red lines), fever or chills please go to the ER Patient Language: Belarusian Prescriptions: New prednisone 10 mg tablet 30 mg PO DAILY Qty: 5 0RF No Action cj-dgx-ED-vit D-cktsxr-rqnenrv [PreserVision AREDS 2 Plus MV] PO aspirin 81 mg capsule 81 mg PO DAILY valsartan-hydrochlorothiazide 160-25 mg tablet 1 tablet PO DAILY Qty: 90 1RF acetaminophen [Tylenol Extra Strength] 500 mg tablet 1,000 mg PO TID PRN (Reason: pain) Qty: 30 0RF ibuprofen 600 mg tablet 600 mg PO TID PRN (Reason: pain) Qty: 20 0RF calcium carbonate-vitamin D3 600 mg-20 mcg (800 unit) tablet 1 tablet PO DAILY amlodipine 5 mg tablet See Rx Instructions .ROUTE .COMPLEX Qty: 90 1RF Dose Instruction: Take 1 tablet by mouth once daily Rx Instructions: Take 1 tablet by mouth once daily rosuvastatin 10 mg tablet 5 mg PO DAILY Qty: 45 2RF bupropion HCl 150 mg tablet extended release 24 hr 150 mg PO QAM Qty: 30 3RF metoprolol succinate 25 mg tablet extended release 24 hr See Rx Instructions .ROUTE .COMPLEX Qty: 90 3RF Dose Instruction: Take 1 tablet by mouth once daily Rx Instructions: Take 1 tablet by mouth once daily Follow-up/Referrals: Alejandro Yap MD [Primary Care Provider] - Time of Disposition: 19:38
== END 2025-04-24 19:39 | disposition home or self-care (01) ==
PROVIDERS: PCP Family Medicine Adolescent Medicine
DX: S20.96XA Insect bite (nonvenomous) of unspecified parts of thorax, initial encounter (principal); S40.862A Insect bite (nonvenomous) of left upper arm, initial encounter; S40.861A Insect bite (nonvenomous) of right upper arm, initial encounter; S80.862A Insect bite (nonvenomous), left lower leg, initial encounter; S80.861A Insect bite (nonvenomous), right lower leg, initial encounter; W57.XXXA Bitten or stung by nonvenomous insect and other nonvenomous arthropods, initial encounter; I10 Essential (primary) hypertension; E78.5 Hyperlipidemia, unspecified; Z86.718 Personal history of other venous thrombosis and embolism; Z98.42 Cataract extraction status, left eye; Z98.41 Cataract extraction status, right eye; Z96.643 Presence of artificial hip joint, bilateral
CPT/HCPCS: 99213; G0463

== ENCOUNTER → 2025-05-01 11:03 | Outpatient (CLI) | payer MEDICARE, OTHER, SELFPAY ==
--- NOTE | ~2025-05-01 | XR_ITS ---
EXAM/ PROCEDURE: XR knee LT 3V - 05/01/2025 11:08 CDT HISTORY: 79 years old Female with fall forward, pain in left knee COMPARISON: None available TECHNIQUE: Four view(s) FINDINGS/ IMPRESSION: There are no fractures or dislocations.Joint space narrowing, subchondral sclerosis, subchondral cyst formation and osteophyte formation, compatible with mild to moderate osteoarthritis. Reviewed, dictated and finalized at location A.
== END ==
PROVIDERS: PCP Nurse Practitioner Family; Visit Provider Nurse Practitioner Family
DX: M17.12 Unilateral primary osteoarthritis, left knee (principal); S89.92XA Unspecified injury of left lower leg, initial encounter; X58.XXXA Exposure to other specified factors, initial encounter
CPT/HCPCS: 73562

== ENCOUNTER 2025-09-12 09:27 | Outpatient (CLI) | payer MEDICARE, OTHER, SELFPAY ==
--- NOTE | 2025-09-12 09:40 | NEURO_ITS ---
Impression: # Non-diabetic complains of numbness of right hand. # Moderate right Carpal Tunnel Syndrome. # Right Ulnar Neuropathy across the elbow. # Abnormal Needle/ EMG exam. Nerve Conduction Studies ?Stim Site NR Peak (ms) P-T Amp (?V) Site1 Site2 Delta-P (ms) Dist (cm) Carlos (m/s) Right Median Anti Sensory (2-3nd Digit) Wrist ? 4.9 7.4 Wrist 2-3nd Digit 4.9 14.0 29 Wrist ? 4.9 4.1 Wrist 2-3nd Digit 4.9 14.0 29 Right Radial Anti Sensory (Base 1st Digit) Wrist ? 2.3 8.0 Wrist Base 1st Digit 2.3 0.0 Right Ulnar Anti Sensory (5th Digit) Wrist ? 2.4 23.7 Wrist 5th Digit 2.4 14.0 58 ?Stim Site NR Onset (ms) O-P Amp (mV) Site1 Site2 Delta-0 (ms) Dist (cm) Carlos (m/s) Right Median Motor (Abd Poll Brev) Wrist ? 4.8 2.1 Elbow Wrist 4.8 25.0 52 Elbow ? 9.6 3.2 Right Ulnar Motor (Abd Dig Minimi) Wrist ? 2.0 7.6 A Elbow Wrist 6.4 29.0 45 A Elbow ? 8.4 5.9 B Elbow Wrist 3.9 18.0 46 B Elbow ? 5.9 5.4 F Wave Studies ?NR F-Lat (ms) L-R F-Lat (ms) Right Median (Mrkrs) (Abd Poll Brev) ? 29.45 Right Ulnar (Mrkrs) (Abd Dig Min) ? 27.52 Electromyography ?Side Muscle Nerve Root Ins Act Fibs Amp Dur Recrt Comment Right 1stDorInt Ulnar C8-T1 Nml Nml Nml >12ms +1 Right Ext Indicis Radial (Post Int) C7-8 Nml Nml Nml Nml Nml Right Ext Digitorum Radial (Post Int) C7-8 Nml Nml Nml Nml Nml Right BrachioRad Radial C5-6 Nml Nml Nml Nml Nml Right PronatorTeres Median C6-7 Nml Nml Nml Nml Nml Right Abd Poll Brev Median C8-T1 Nml Nml Nml >12ms +1 Right ABD Dig Min Ulnar C8-T1 Nml Nml Nml >12ms +1 Right FlexPolLong Median (Ant Int) C7-8 Nml Nml Nml Nml Nml Right Abd Poll Long Radial (Post Int) C7-8 Nml Nml Nml Nml Nml
--- OUTSIDE RECORDS SUMMARY | 2025-09-12 10:32 | XMS_ITS | Clinical Summary ---
Author Organization [place] [id number] [facility] Address [address] [place] [address] Care Team Providers Care Power Nut Runner Operator Name Role Phone Alejandro Yap MD Primary Care Provider [phone] Allergies No known active allergies Medications metoprolol [...] Comments Blood Pressure 120/70 12/07/2019 11:30 AM ANESTHESIA TECHNICIAN Pulse 82 12/07/2019 11:30 AM ANESTHESIA TECHNICIAN Temperature 36.7 C (98 F) 12/07/2019 10:15 AM ANESTHESIA TECHNICIAN Respiratory Rate 17 12/07/2019 11:3 0 AM ANESTHESIA TECHNICIAN Oxygen Saturation 94% 12/07/2019 11: 30 AM ANESTHESIA TECHNICIAN Inhaled Oxygen Concentration - - Weight 65.2 kg (143 lb 12.8 oz) 12/07/2019 5:49 AM ANESTHESIA TECHNICIAN Height 165.1 cm (5' 5) 12/07/2019 5:49 AM ANESTHESIA TECHNICIAN Body Mass Index 23.93 12/07/2019 5:49 AM ANESTHESIA TECHNICIAN Plan of Treatment Health Maintenance Due Date Last Done Comments DTAP/TDAP/TD VACCINES (1 - Tdap) 1962 PNEUMOCOCCAL VACCINE 50+ YEARS (1 of 1 - PCV) 07/01/19 93 ZOSTER VACCINE (1 of 2) 1993 OSTEOPOROSIS SCREENING 2008 RSV VACCINE (60+ or ) (1 - 1-dose 75+ series) 2018 INFLUENZA VACCINE (#1) 2025 08/29/2019 Medical Devices Implanted Type Area Business Machine Operator Device Identifier Shelf Expiration Date Model / Serial / Lot Hemostatic Surgiflo 8ml W/Thrombin [id number] - [id number] Implanted:Qty: 1 on 12/07/2019 by Wes Swain MD at [facility] [employer] 2994 / / Description:trans from suppl ies Insurance MEDICARE RAILROAD [facility] OPTIONS PPO [id number] RX OPTUM RX Advance Directives For more information, please contact: [phone] Documents on File Type Date Recorded Patient Chronometer Assembler Expl anation Advance Directive POA 12/07/2019 7:04 AM A dvance Directive POA Advance Directive Living Will 12/07/2019 7:03 AM Advance Directive Living Will Care Teams Power Nut Runner Operator Relationship Specialty Start Date End Date Alejandro Yap MD PCP - General Family Practice 08/10/19
--- OUTSIDE RECORDS SUMMARY | 2025-09-12 10:32 | XMS_ITS | Clinical Summary ---
Author Organization [facility] Address [address] [place] [address] Care Team Providers Care Adult Services Librarian Name Role Phone Alejandro Yap MD Primary Care Prov ider Carmelo Gant Unavailable [phone] Branadn Lim MD Unavailable [phone] Allergies Active Allergy Reactions Criticality Noted Date Comments Clindamycin Hives Medium 04/25/2025 Medications rosuvastatin (CRESTOR) 10 mg tablet Take [...] Active Problems Problem Noted Date Diagnosed Date Shortness of breath 04/25/2025 Hyperlipidemia 02/10/2025 Lumbosacral spondylosis with radiculopathy 01/03 Postlaminectomy syndrome, lumbar region 01/03/20 20 Other spondylosis with radiculopathy, lumbar reg ion 11/17/2019 Displacement of lumbar inter vertebral disc without myelopathy 02/07/2014 Encounters Date Type Department Care Team Description 07/03/2025 2:44 PM CDT - 07/03/2025 11:59 PM CDT Hospital Encounter [facility] [address] [place] [address] Radiculopathy, lumbar region Discharge Disposition: Discharge to home or self care 07/03/2025 1:33 PM CDT - 07/03/2025 11:59 PM CDT Hospital Encounter [facility] [address] [place] [address] Radiculopathy, lumbar region Discharge Disposition: Discharge to home or self care from Last 3 Months Immunizations Immunization Administration [...] on file 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 Gender Identity Not on file Sexual Orientation Not on file Occupation Industry Job Start Date Job End Date Retired Not on file Not on file Not on file Last Filed Vital Signs Vital Sign Reading Time Taken Comments Blood Pressure 108/74 04/25/2025 2:37 PM CDT Pulse 84 04/25/2025 2:37 PM CDT Temperature - - Respiratory Rate 14 02/10/2025 10:17 AM CDT Oxygen Saturation 95% 04/25/2025 2:37 PM CDT Inhaled Oxygen Concentration - - Weight 74.8 kg (165 lb) 04/25/2025 2:37 PM CDT Height 165.1 cm (5' 5) 04/25/2025 2:37 PM CDT Body Mass Index 27.46 04/25/2025 2:37 PM CDT Plan of Treatment Health Maintenance Due Date Last Done Comments Depression Screening 1945 Osteoporosis Screening-Bone Density Scan 1945 Hepatitis B Screening 1961 Well Visit 65+ 2008 Zoster Vaccine (2 of 3) 03/07/2020 01/11/20 20, 08/05/2019, 09/12/2013 Covid-19 Vaccine (5 - 2024-2 6 season) 2025 05/19/2022, 09/22/2021, 01/30/2021, Additional history exists Influenza Vaccine (#1) 2025 , 08/29/2019, 11/18/2013 Fall Risk Assessment 02/10/2026 02/10/2025 DTaP/Tdap/Td Vaccine (3 - Td or Tdap) 04/21/2035 04/21/2025, 05/22/2018, 05/30/2014 Pneumococcal vaccine 65+ Completed 08/01/2020, 07/11 Procedures Procedure Name Priority Date/Time Associated Diagnosis Comments XR SPINE LUMBAR 2 OR 3 VIEWS Schedule Routine, Read Routine (OP Routine) 07/03/2025 2:50 PM CDT Radiculopathy, lumbar region MRI LUMBAR SPINE WO CONTRAST Schedule Routine, Read Routine (OP Routine) 07/03/2025 2:36 PM CDT Radiculopathy, lumbar region from Last 3 Months Results * XR Spine Lumbar 2 or 3 Views (07/03/2025 2:50 PM CDT) Anatomical Region Laterality Modality Spine N/A Computed Radiogr aphy 07/16/2025 11:2 8 AM CDT Narrative 07/16/2025 11:30 AM CDT EXAM DESCRIPTION: 1. XR SPINE LUMBAR 2 OR 3 VIEWS REASON FOR STUDY: radiculopathy Chronic pain prev back surgery No recent injury FINDINGS: Three views submitted with comparison 04/15/2022. No acute fracture. Mild rotary levoscoliosis of the lumbar spine. Mild lumbar kyphosis. Moderate L2-L3, severe L3-S1 and mild L5-S1 degenerative disc disease with moderate to severe inferior lumbar facet osteoarthritis. Right upper quadrant surgical clips are noted. IMPRESSION: 1. Moderate L2-L3, severe L3-S1 and mild L5-S1 degenerative disc disease with moderate to severe inferior lumbar facet osteoarthritis. THIS IS AN ELECTRONICALLY VERIFIED FINAL REPORT 07/16/2025 11:30 AM - Electronically signed by Jake Garibay M.D. MF: [email or web address] Report ID: [id number] Reading Location: [id number] Procedure Note Jake Garibay MD - 07/16/2025 EXAM DESCRIPTION: 1. XR SPINE LUMBAR 2 OR 3 VIEWS REASON FOR STUDY: radiculopathy Chronic pain prev back surgery No recent injury FINDINGS: Three views submitted with comparison 04/15/2022. No acute fracture. Mild rotary levoscoliosis of the lumbar spine. Mild lumbar kyphosis. Moderate L2-L3, severe L3-S1 and mild L5-S1 degenerative disc disease with moderate to severe inferior lumbar facet osteoarthritis. Right upper quadrant surgical clips are noted. IMPRESSION: 1. Moderate L2-L3, severe L3-S1 and mild L5-S1 degenerative disc disease with moderate to severe inferior lumbar facet osteoarthritis. THIS IS AN ELECTRONICALLY VERIFIED FINAL REPORT 07/16/2025 11:30 AM - Electronically signed by Jake Garibay M.D. MF: [email or web address] Report ID: [id number] Reading Location: [id number] us Merry Arceo NP IMG XR PROCEDURES Final Resul t * MRI Lumbar Spine WO Contrast (07/03/2025 2:36 PM CDT) Anatomical Region Laterality Modality Spine N/A Magnetic Resonan ce 07/04/2025 11:2 8 AM CDT Narrative 07/04/2025 11:45 AM CDT EXAM DESCRIPTION: MRI LUMBAR SPINE WO CONTRAST REASON FOR STUDY: M54.16 Lower back pain that has progressed in the past 3 years; she's experiencing tingling and numbness down her left leg. Hx of 2 back surgeries and injections TECHNIQUE: Sagittal and Axial imaging includes T1, T2, STIR sequences. COMPARISON: Lumbar plain films 04/15/2022. FINDINGS: SEGMENTATION: No transitional anatomy. The lowest well-developed disc space is labeled L5-S1. ALIGNMENT: Levocurvature with apex at L3-4. Straightening of lordosis. Slight retrolisthesis most evident L4-5 due to disc degeneration. VERTEBRAE: Vertebral height is maintained. No acute or chronic insufficiency fracture evident. No focal concerning marrow lesion. DISC HEIGHT: Disc degeneration at several levels. See below. HARDWARE: None in the spine. CORD/CAUDA: Normal in size and signal intensity. Conus at the appropriate level. LOWER THORACIC: Incompletely imaged. No stenosis seen. INDIVIDUAL DISC LEVELS: L1-2: Diffuse annular bulge. Moderate central protrusion. Mild flattening along anterior thecal sac CSF. No significant central canal stenosis or neural foraminal stenosis. L2-3: Diffuse annular bulge with broad-based central-left paracentral disc protrusion. Mild central canal stenosis. No significant neural foraminal stenosis. L3-4: Disc degeneration with disc space narrowing. Asymmetric hypertrophic facet arthropathy on the right greater than left due to the curvature. Previous right hemilaminotomy. No significant central canal stenosis. Mild right greater than left neural foraminal stenosis due to the scoliosis. L4-5: Diffuse annular bulge. Superimposed right subarticular disc protrusion with mild flattening along right anterolateral thecal sac but no significant lateral recess stenosis. This is contiguous across midline however with soft tissue in the left subarticular region possibly reflecting a disc extrusion. It is not clear if this represents an inferior L4-5 or superior L5-S1 extrusion or whether this is artifactual. This is best seen on series 8 axial T2 image 34 corresponding to series 5 sagittal T2 image 12. There is mass effect in the left lateral recess and left neural foraminal narrowing is severe. Changes could reflect mass effect on the descending L5 nerve root. There is no foraminal narrowing. L5-S1: Disc degeneration with bilateral hypertrophic facet arthropathy. Postoperative change of left hemilaminotomy. Soft tissue in the left lateral recess of L5 possibly superiorly migrated or inferiorly migrated as mentioned above. Severe left lateral recess stenosis and severe left foraminal stenosis. Given postop changes, contrast may be beneficial. SACRUM: Visualized upper sacrum intact. VISUALIZED UPPER ABDOMEN: No significant abnormality. OTHER: No other significant findings. IMPRESSION: 1. Lumbar scoliosis with multilevel disc degeneration and facet arthritis. 2. Postop change of right hemilaminotomy at L3-4 and left hemilaminotomy at L5-S1. 3. Soft tissue in the left lateral recess of L5 which could represent a disc extrusion or could be artifactual. Please correlate with radiculopathy symptoms. Contrast-enhanced imaging may be beneficial in this postoperative patient. 4. Additional disc degeneration at other levels. See above. 5. No acute osseous abnormality. THIS IS AN ELECTRONICALLY VERIFIED FINAL REPORT 07/04/2025 11:45 AM - Electronically signed by Eliz Vizcarra M.D. LC: HUGO Report ID: [id number] Reading Location: [id number] Procedure Note Gricelda Vizcarra MD - 07/04/2025 EXAM DESCRIPTION: MRI LUMBAR SPINE WO CONTRAST REASON FOR STUDY: M54.16 Lower back pain that has progressed in the past 3 years; she'sexperiencing tingling and numbness down her left leg. Hx of 2 back surgeries andinjections TECHNIQUE: Sagittal and Axial imaging includes T1, T2, STIR sequences. COMPARISON: Lumbar plain films 04/15/2022. FINDINGS: SEGMENTATION: No transitional anatomy. The lowest well-developed discspace is labeled L5-S1. ALIGNMENT: Levocurvature with apex at L3-4. Straightening of lordosis. Slight retrolisthesis most evident L4-5 due to disc degeneration. VERTEBRAE: Vertebral height is maintained. No acute or chronic insufficiency fracture evident. No focal concerning marrow lesion. DISC HEIGHT: Disc degeneration at several levels. See below. HARDWARE: None in the spine. CORD/CAUDA: Normal in size and signal intensity. Conus at theappropriate level. LOWER THORACIC: Incompletely imaged. No stenosis seen. INDIVIDUAL DISC LEVELS: L1-2: Diffuse annular bulge. Moderate central protrusion. Mildflattening along anterior thecal sac CSF. No significant central canal stenosis or neural foraminal stenosis. L2-3: Diffuse annular bulge with broad-based central-left paracentraldisc protrusion. Mild central canal stenosis. No significant neural foraminal stenosis. L3-4: Disc degeneration with disc space narrowing. Asymmetrichypertrophic facet arthropathy on the right greater than left due to the curvature. Previous right hemilaminotomy. No significant central canal stenosis.Mild right greater than left neural foraminal stenosis due to the scoliosis. L4-5: Diffuse annular bulge. Superimposed right subarticular disc protrusion with mild flattening along right anterolateral thecal sac butno significant lateral recess stenosis. This is contiguous across midline however with soft tissue in the left subarticular region possiblyreflecting a disc extrusion. It is not clear if this represents an inferior L4-5 or superior L5-S1 extrusion or whether this is artifactual. This is bestseen on series 8 axial T2 image 34 corresponding to series 5 sagittal T2 image 12. There is mass effect in the left lateral recess and left neural foraminal narrowing is severe. Changes could reflect mass effect on the descendingL5 nerve root. There is no foraminal narrowing. L5-S1: Disc degeneration with bilateral hypertrophic facet arthropathy. Postoperative change of left hemilaminotomy. Soft tissue in the leftlateral recess of L5 possibly superiorly migrated or inferiorly migrated asmentioned above. Severe left lateral recess stenosis and severe left foraminal stenosis. Given postop changes, contrast may be beneficial. SACRUM: Visualized upper sacrum intact. VISUALIZED UPPER ABDOMEN: No significant abnormality. OTHER: No other significant findings. IMPRESSION: 1. Lumbar scoliosis with multilevel disc degeneration and facetarthritis. 2. Postop change of right hemilaminotomy at L3-4 and left hemilaminotomyat L5-S1. 3. Soft tissue in the left lateral recess of L5 which could represent adisc extrusion or could be artifactual. Please correlate with radiculopathy symptoms. Contrast-enhanced imaging may be beneficial in thispostoperative patient. 4. Additional disc degeneration at other levels. See above. 5. No acute osseous abnormality. THIS IS AN ELECTRONICALLY VERIFIED FINAL REPORT 07/04/2025 11:45 AM - Electronically signed by Eliz Vizcarra M.D. LC: HUGO Report ID: [id number] Reading Location: [place] [address] Merry Arceo NP IMG MRI PROCEDURES Final Resu lt from Last 3 Months Insurance MEDICARE [employer] [address] MEDICARE RAILROAD [facility] H[facility]/PPO Address: [address] [address] [place] [address] [facility] MEDICARE RAILROAD [facility] Care Teams Adult Services Librarian Relationship Specialty Start Date End Date Alejandro Yap MD PCP - General Family Medicine 10/09/21 Carmelo Gant PA Physician Driver Supervisor Neurosurgery 11/07/21 Brandan Lim MD Consulting Physician Neurosurgery 11/07/21
--- OUTSIDE RECORDS SUMMARY | 2025-09-12 10:32 | XMS_ITS | Clinical Summary ---
Author Organization [facility] Address [address] [place] [address] Care Team Providers Care Corporate Quality Engineer Name Role Phone Kirill Schultz MD Primary Care Provider [phone] Jerrica Mueller RN Unavailable Source Comments [facility],non-owned Affiliates and Associated Physician Practices is amultiple site organization consisting of ambulatory clinics and hospital sitesin [place], [place], [place] and [place]. This disclosure is being madepursuant to the Care Everywhere program and may not contain all information available regarding this patient. Last updated 18.[facility] Allergies No known active allergies Medications * [...] Family History Medical History Relation Name Comments [place] Father Non-contributory Mother alive Relation Name Status [...] on file Legal Sex Female 4:33 PM PAWN BROKER Gender Identity Not on file Sexual Orientation [...] Oxygen Concentration 94% 11/17/2013 1 1:14 AM PAWN BROKER Weight 78 kg (172 lb) 04/30/2016 2:17 [...] yrs (1 - 1-dose 75+ series) 2018 DEPRESSION SCREENING 11/09/2024 COVID-19 VACCINE (2023-2 5 season) 2025 INFLUENZA VACCINE (#1) 2025 11/18/2013 HEPATITIS B VACCINE Aged Out No longe [...] this topic Medical Devices Implanted Type Area Test Engineering Manager Device Identifier Shelf Expiration Date Model / Serial / Lot Wax Bone Implanted:Qty: 1 on 11/17/2013 at [facility] [employer] [id number] / / Wax Bone Implanted:Qty: 1 on 02/01/2014 at [facility] [employer] [id number] / / Gelfoam Plus Implanted:Qty: 1 on 02/01/2014 by Igor Ladd MD at [facility] Back [employer] 08/09/2015 [id number] / / [id number] Insurance MEDICARE Advance Directives * Full Code (Latest Code Status on File) Date Activated Date Inactivated Comments 02/01/2014 2:11 PM 02/02/2014 3:20 PM * FULL RESUSCITATION Date Activated Date Inactivated Comments 11/17/2013 5:55 PM 11/18/2013 2:58 PM Care Teams Corporate Quality Engineer Relationship Specialty Start Date End Date Kirill Schultz MD [address] [place] [phone] PCP - General Internal Medicine 11/17/13 Jerrica Mueller, RN [place] 02/02/14
--- OUTSIDE RECORDS SUMMARY | 2025-09-12 10:32 | XMS_ITS | Clinical Summary ---
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 Gender Identity Not on file Sexual Orientation Not on file Plan of Treatment Health Maintenance Due Date Last Done Comments Hepatitis C Virus (HCV) Screening 1945 Pneumococcal Immunization (5 0+ years) (1 of 1 - PCV) 1993 Zoster Immunization (2 of 3) 11/07/2013 09/12/2013 Respiratory Syncytial Virus (RSV) Immunization (Adult) (1 - 1-dose 75+ series) 2018 Influenza Immunization (#1) 2025 SARS-COV-2 Immunization ( - season) 2025 DTaP/Tdap/Td Immunization Discontinued 2017, 05/30/2014 TdaP Immunization Completed 05/22/2018 Hepatitis B Immunization Aged Out No longer eligible based on patient's age to complete this topic Human Papillomavirus (HPV) Immunization Aged Out No longer eligible based on patient's age to complete this topic Meningococcal Immunization (ACWY) Aged Out No longer eligible based on patient's age to complete this topic Rotavirus Immunization Aged Out No lo nger eligible based on patient's age to complete this topic
== END 2025-09-12 09:28 | disposition home or self-care (01) ==
LOC: ANHNEURO 09:28
PROVIDERS: PCP Nurse Practitioner Family; Visit Provider Nurse Practitioner Family
DX: G56.01 Carpal tunnel syndrome, right upper limb (principal); G56.21 Lesion of ulnar nerve, right upper limb; R94.131 Abnormal electromyogram [EMG]
CPT/HCPCS: 95886; 95909

== ENCOUNTER 2025-09-29 10:15 | Outpatient (CLI) | payer MEDICARE, OTHER, SELFPAY ==
--- NOTE | ~2025-09-29 | US_ITS ---
EXAMINATION: US abdomen limited DATE: 09/29/2025 11:48 INDICATION: Abnormal levels of other serum enzymes TECHNIQUE: Multiple grayscale and Doppler ultrasound images of the abdomen were obtained. COMPARISON: None FINDINGS: The visualized portion of the pancreas appears echogenic which could be seen with fatty replacement or sequela of chronic pancreatitis. Visualized proximal inferior vena cava is normal. Liver has normal echogenicity and contour, with a smooth surface. No liver lesion identified. No intrahepatic biliary duct dilation suspected. Portal venous flow was seen in the hepatopetal, normal direction and has normal Doppler waveform. Gallbladder is not visualized and reportedly surgically absent. Common bile duct measures 7 mm in maximal diameter which is within normal limits for age and postcholecystectomy. IMPRESSION: 1. Diffuse increased pancreatic echogenicity which can be seen with fatty replacement of the pancreas due to age, body habitus or metabolic syndrome or as sequela of chronic pancreatitis. 2.. Common bile duct measures 7 mm in diameter which is within normal limits for age and postcholecystectomy with no intrahepatic biliary ductal dilation. Reviewed, dictated and finalized at location A. [employer] DC FIELD RING IMPRESSION: 1. Diffuse increased pancreatic echogenicity which can be seen with fatty repla cement of the pancreas due to age, body habitus or metabolic syndrome or as seq uela of chronic pancreatitis. 2.. Common bile duct measures 7 mm in diameter which is within normal limits fo r age and postcholecystectomy with no intrahepatic biliary ductal dilation.
--- NOTE | ~2025-09-29 | XR_ITS ---
[id number] Indication: M47.812 - Spondylosis without myelopathy or radiculopathy... Comparison: None Findings: Mild osteopenia. No acute fracture or subluxation. Moderate to severe loss of disc height at C4-5 C5-6 and C6-7. Soft tissues unremarkable Impression: No acute abnormality. Reviewed, dictated and finalized at location P. MILL AND LATHE OPERATOR Impression: No acute abnormality.
--- OUTSIDE RECORDS SUMMARY | 2025-09-29 10:10 | XMS_ITS | Clinical Summary ---
Author Organization [employer] [address] [facility] Address [address] [place] [address] Care Team Providers Care Sluice Tender Name Role Phone Alejandro Yap MD Primary Care Provider [phone] Allergies No known active allergies Medications metoprolol [...] Comments Blood Pressure 120/70 12/07/2019 11:30 AM WASHHOUSE WORKER Pulse 82 12/07/2019 11:30 AM WASHHOUSE WORKER Temperature 36.7 C (98 F) 12/07/2019 10:15 AM WASHHOUSE WORKER Respiratory Rate 17 12/07/2019 11:3 0 AM WASHHOUSE WORKER Oxygen Saturation 94% 12/07/2019 11: 30 AM WASHHOUSE WORKER Inhaled Oxygen Concentration - - Weight 65.2 kg (143 lb 12.8 oz) 12/07/2019 5:49 AM WASHHOUSE WORKER Height 165.1 cm (5' 5) 12/07/2019 5:49 AM WASHHOUSE WORKER Body Mass Index 23.93 12/07/2019 5:49 AM WASHHOUSE WORKER Plan of Treatment Health Maintenance Due Date Last Done Comments DTAP/TDAP/TD VACCINES (1 - Tdap) 1962 PNEUMOCOCCAL VACCINE 50+ YEARS (1 of 1 - PCV) 07/01/19 93 ZOSTER VACCINE (1 of 2) 1993 OSTEOPOROSIS SCREENING 2008 RSV VACCINE (60+ or ) (1 - 1-dose 75+ series) 2018 INFLUENZA VACCINE (#1) 2025 08/29/2019 Medical Devices Implanted Type Area Assistant Production Manager Device Identifier Shelf Expiration Date Model / Serial / Lot Hemostatic Surgiflo 8ml W/Thrombin 2994 - [id number] Implanted:Qty: 1 on 12/07/2019 by Wes Swain MD at [facility] [employer] 2994 / / Description:trans from suppl ies Insurance MEDICARE RAILROAD [facility] OPTIONS PPO [id number] RX OPTUM RX Advance Directives For more information, please contact: [phone] Documents on File Type Date Recorded Patient Mainspring Winder And Oiler Expl anation Advance Directive POA 12/07/2019 7:04 AM A dvance Directive POA Advance Directive Living Will 12/07/2019 7:03 AM Advance Directive Living Will Care Teams Sluice Tender Relationship Specialty Start Date End Date Alejandro Yap MD PCP - General Family Practice 08/10/19
--- OUTSIDE RECORDS SUMMARY | 2025-09-29 10:10 | XMS_ITS | Clinical Summary ---
Author Organization 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
--- OUTSIDE RECORDS SUMMARY | 2025-09-29 10:10 | XMS_ITS | Clinical Summary ---
Author Organization [facility] Address [address] [place] [address] Care Team Providers Care Cloth Picker Name Role Phone Kirill Schultz MD Primary Care Provider [phone] Jerrica Mueller RN Unavailable Source Comments [facility],non-owned Affiliates and Associated Physician Practices is amultiple site organization consisting of ambulatory clinics and hospital sitesin [place], [place], [place] and [place]. This disclosure is being madepursuant to the Care Everywhere program and may not contain all information available regarding this patient. 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 Gender Identity Not on file Sexual Orientation [...] Oxygen Concentration 94% 11/17/2013 1 1:14 AM DOUGH MACHINE OPERATOR Weight 78 kg (172 lb) 04/30/2016 2:17 [...] series) 2018 DEPRESSION SCREENING 11/09/2024 COVID-19 VACCINE ( - 2024-2 6 season) 2025 INFLUENZA VACCINE (#1) 2025 11/18/2013 [...] this topic Medical Devices Implanted Type Area Field Enumerator Device Identifier Shelf Expiration Date Model / Serial / Lot Wax Bone Implanted:Qty: 1 on 11/17/2013 at [facility] [employer] [id number] / / Wax Bone Implanted:Qty: 1 on 02/01/2014 at [facility] [employer] [id number] / / Gelfoam Plus Implanted:Qty: 1 on 02/01/2014 by Igor Ladd MD at [facility] Back [employer] 08/09/2015 [id number] / / [id number] Insurance MEDICARE Advance Directives * Full Code (Latest Code Status on File) Date Activated Date Inactivated Comments 02/01/2014 2:11 PM 02/02/2014 3:20 PM * FULL RESUSCITATION Date Activated Date Inactivated Comments 11/17/2013 5:55 PM 11/18/2013 2:58 PM Care Teams Cloth Picker Relationship Specialty Start Date End Date Kirill Schultz MD [address] [place] [address] [phone] PCP - General Internal Medicine 11/17/13 Jerrica Mueller, RN Reprographics Technician 02/02/14
--- OUTSIDE RECORDS SUMMARY | 2025-09-29 10:10 | XMS_ITS | Clinical Summary ---
Author Organization [facility] Address [address] [place] [address] Care Team Providers Care Transformation Architect Name Role Phone Alejandro Yap MD Primary Care Prov ider Carmelo Gant Unavailable [phone] Brandan Lim MD Unavailable [phone] Allergies Active Allergy Reactions Criticality Noted Date [...] - 07/03/2025 11:59 PM CDT Hospital Encounter [facility] [address] [place] [address] Radiculopathy, lumbar region Discharge Disposition: Discharge to home or self care 07/03/2025 1:33 PM CDT - 07/03/2025 11:59 PM CDT Hospital Encounter [facility] [address] [place] [address] Radiculopathy, lumbar region Discharge Disposition: Discharge to [...] on file 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 MF: VIANNEY Report ID: [id number] Reading Location: [id number] Procedure Note Jake Garibay MD - 07/16/2025 [...] Jake Garibay M.D. MF: VIANNEY Report ID: [id number] Reading Location: [id number] us Merry Arceo NP IMG XR PROCEDURES [...] Eliz Vizcarra M.D. LC: HUGO Report ID: [id number] Reading Location: [id number] Procedure Note Gricelda Vizcarra MD - 07/04/2025 [...] Eliz Vizcarra M.D. LC: HUGO Report ID: [id number] Reading Location: [place] [address] Merry Arceo NP IMG MRI PROCEDURES Final Resu lt from Last 3 Months Insurance MEDICARE [employer] [address] MEDICARE RA[address]ROAD [facility] CHOICE [facility] HMO/PPO Address: [address] [address] [place] [address] [facility] MEDICARE RAILROAD [facility] Care Teams Transformation Architect Relationship Specialty Start Date End Date Alejandro Yap MD PCP - General Family Medicine 10/09/21 Carmelo Gant PA Physician Carpet Tile Layer Neurosurgery 11/07/21 Brandan Lim MD Consulting Physician Neurosurgery 11/07/21
[2025-09-29 12:15] LABS: Hematocrit 38.4 % (37.0-47.0); Hemoglobin 12.9 g/dL (12.0-15.0); Immature Granulocyte Percent A 0.3 % (0-0.5); Lymphocytes Absolute Auto 1.52 K/mm3 (0.9-3.2); Mean Corpuscular HGB Conc 33.6 g/dl (32-36); Mean Corpuscular Hemoglobin 28.9 pg (26-34); Mean Corpuscular Volume 86.1 fl (80-100); Nucleated Red Blood Cells Absolute Auto 0.000 K/mm3 (0.0-0.012); Nucleated Red Blood Cells Perc 0.0 % (0.0-0.2); Platelet Count Result 356 k/mm3 (150-375); Red Blood Count 4.46 M/mm3 (4.2-5.4); White Blood Count 6.7 K/mm3 (4.5-10.0)
[2025-09-29 12:29] LABS: Iron 107 ug/dL (37-170)
[2025-09-29 12:31] LABS: Alanine Aminotransferase 27 U/L (6-35); Albumin Level 4.3 g/dL (3.5-5.1); Alkaline Phosphatase 100 U/L (38-126); Anion Gap 6 mmol/L (4-12); Aspartate Amino Transferase 39 U/L (14-36); Bilirubin,Total 0.8 mg/dL (0.2-1.3); Blood Urea Nitrogen 13 mg/dL (7-17); Calcium 9.5 mg/dL (8.4-10.2); Carbon Dioxide 29 mmol/L (22-30); Chloride 97 mmol/L (98-107); Cholesterol 181 mg/dL (0-200); Estimated Glomerular Filt Rate > 60; Glucose 101 mg/dL (65-110); HDL Direct 66 mg/dL; Potassium 3.7 mmol/L (3.4-5.0); Sodium 132 mmol/L (137-145); Total Protein 7.4 g/dL (6.3-8.2); Triglycerides 159 mg/dL (<150)
[2025-09-29 12:39] LABS: Percent Iron Saturation 32 % (20-50)
[2025-09-29 13:03] LABS: Hepatitis B Surface Antigen Negative (Negative)
[2025-09-29 13:22] LABS: Hepatitis B Surface Anti Res Positive
[2025-09-30 06:08] LABS: Hep B Core Ab, Total Negative (Negative)
== END 2025-09-29 10:16 | disposition home or self-care (01) ==
PROVIDERS: PCP Nurse Practitioner Family; Visit Provider Nurse Practitioner Family
DX: M47.812 Spondylosis without myelopathy or radiculopathy, cervical region (principal); M54.32 Sciatica, left side; M54.2 Cervicalgia; R74.8 Abnormal levels of other serum enzymes; I10 Essential (primary) hypertension; E78.00 Pure hypercholesterolemia, unspecified; R51.9 Headache, unspecified
CPT/HCPCS: 36415; 72040; 76705; 80053; 80061; 83540; 83550; 85025; 86704; 86706; 86803; 87340